=== PATIENT | male | born 1965 | race Caucasian/White ===

== ENCOUNTER 2016-05-23 21:15 | Emergency (ER) | payer MEDICARE, OTHER ==
[2016-05-23] MEDS ORDERED: Sodium Chloride 0.9% 1000 ML 1,000 ML IV STA (21:39)
[2016-05-23] MEDS ORDERED: Phenergan 25 MG INJ IV ONE (21:39)
[2016-05-23] MEDS ORDERED: PROTONIX 40 MG IV IV ONE ×2 (21:39→21:46)
[2016-05-23] MEDS ORDERED: Hydromorphone 1 mg/ml Ampule IV ONE ×2 (21:39→23:26)
[2016-05-23] MEDS ORDERED: Hydromorphone 1 mg/ml Ampule ONE ×2 (21:46→23:40)
[2016-05-23] MEDS ORDERED: Phenergan 25 MG INJ ONE (21:46)
[2016-05-23] MEDS ORDERED: Sodium Chloride 0.9% 1000 ML 1,000 ML ONE (21:46)
--- NOTE | 2016-05-23 21:51 | ERPHSYRPT ---
- History of Present Illness Time Seen by Provider: 05/23/16 21:28 Historian: patient Exam Limitations: no limitations Patient Subjective Stated Complaint: pt states he been coughing frequently and is having pain in his abd from coughing and chronic pancreatitis. Triage Nursing Assessment: pt alert and oriented, answers questions approp. skin pale warm and dry. respirations nonlabored with exp wheeze noted. abd soft , tender. Physician History: SINCE 8 AM TODAY PT HAS HAD CONSTANT SHARP MID UPPER ABDOMINAL PAIN RADIATING TO THE BACK, VOMITING X 20 WITHOUT BLOOD, DIARRHEA X10 AND CONSTANT SHARP NON- RADIATING LOWER MID ANTERIOR CHEST PAIN WITH DIAPHORESIS. PT ALSO C/O A COUGH PRODUCTIVE OF WHITE PHLEGM AND A BILATERAL FOOT RASH FOR THE PAST 3 WEEKS. PT STATES FOR THE PAST 2 YEARS HE CONSUMES 1.5 FIFTHS OF VODKA DAILY. PT'S FIRST EPISODE OF PANCREATITIS WAS 2 YEARS AGO AND LAST EPISODE WAS 4.5 MONTHS AGO. Allergies/Adverse Reactions: No Known Drug Allergies Allergy (Verified 05/23/16 21:43) Home Medications: Aspirin EC 325 mg [Ecotrin 325 MG] 325 mg PO DAILY 05/23/16 [History] Metoprolol Tartrate 50 mg PO BID 05/23/16 [History] Nifedipine [Afeditab Cr] 60 mg PO DAILY 05/23/16 [History] PANTOPRAZOLE 40 mg Tablet [Protonix 40MG Tablet] 40 mg PO DAILY 05/23/16 [ History] Hx Tetanus, Diphtheria Vaccination/Date Given: No (UNKNOWN) Hx Influenza Vaccination/Date Given: Yes (2015) Hx Pneumococcal Vaccination/Date Given: Yes (2016) Immunizations Up to Date: No - Review of Systems Respiratory: Cough Cardiac: Chest Pain Abdominal/Gastrointestinal: Abdominal Pain, Vomiting, Diarrhea Skin: Rash Endocrine: Excessive Sweating All Other Systems: Reviewed and Negative - Past Medical History Pertinent Past Medical History: Yes Neurological History: TIA ENT History: No Pertinent History Cardiac History: Coronary Artery Disease, Hypertension Respiratory History: COPD Endocrine Medical History: No Pertinent History Musculoskeletal History: Degenerative Disk Disease, Osteoarthritis, Other GI Medical History: Hepatitis, Pancreatitis History: No Pertinent History Psycho-Social History: No Pertinent History Male Reproductive Disorders: No Pertinent History Other Medical History: CARDIAC BLOCKAGE, Hepatitis C, alcoholism - Past Surgical History Past Surgical History: Yes Neuro Surgical History: No Pertinent History Cardiac: No Pertinent History Respiratory: No Pertinent History Gastrointestinal: No Pertinent History Genitourinary: No Pertinent History Musculoskeletal: Orthopedic Surgery Male Surgical History: No Pertinent History Other Surgical History: NECK SURG IN MAR 2013, Lower back surgery x 2 in 1991, sinus surgery - Social History Smoking Status: Current every day smoker How long have you smoked: 30 Exposure to second hand smoke: Yes Drug Use: none Patient Lives Alone: No - Nursing Vital Signs Nursing Vital Signs: Initial Vital Signs Temperature 97.5 F Temperature Source Oral Pulse Rate 102 Respiratory Rate 18 Blood Pressure [] 111/81 Pain Intensity 6 - Physical Exam General Appearance: alert Eye Exam: PERRL/EOMI Ears, Nose, Throat Exam: dry mucous membranes, pharyngeal erythema Neck Exam: normal inspection Respiratory Exam: wheezing (MILD EXPIRATORY WHEEZING BILATERALLY) Cardiovascular Exam: tachycardia Gastrointestinal/Abdomen Exam: soft, normal bowel sounds, tenderness (MILD EPIGASTRIC TENDERNESS) Back Exam: normal range of motion Extremity Exam: other (DRY SCALY FLESHY COLORED RASY ON BOTH HEELS) Neurologic Exam: alert, cooperative, normal mood/affect SpO2 Interpretation: normal SpO2: 93 Oxygen Delivery: Room Air - Course Nursing assessment & vital signs reviewed: Yes EKG Interpreted by Me: RATE ([id number]), Sinus Tach, NORMAL AXIS, NORMAL INTERVALS - Radiology Exams Chest X-ray Interpretation: Interpreted by me, No Pneumonia Ordered Tests: Active Orders 24 hr Category Date Time Status Clean Catch Urine Specimen STAT Care 05/23/16 21:39 Active EKG-ER Only STAT Care 05/23/16 21:39 Active EKG-ER Only STAT Care 05/23/16 23:16 Active IV Insertion STAT Care 05/23/16 21:39 Active ABDOMEN AND PELVIS W/0 CONTRAS [CT] Stat Exams 05/23/16 21:40 Taken CHEST 1 VIEW (PORTABLE) Stat Exams 05/23/16 21:40 Taken AMYLASE Stat Lab 05/23/16 22:15 Completed BLOOD CULTURE Stat Lab 05/23/16 22:00 Ordered CBC W DIFF Stat Lab 05/23/16 22:15 Completed CMP Stat Lab 05/23/16 22:15 Completed CULTURE, THROAT Stat Lab 05/23/16 22:15 Received CULTURE,SPUTUM Stat Lab 05/23/16 23:37 Uncollected ETHOH [Ethyl Alcohol,Urine] Stat Lab 05/23/16 23:36 Received LIPASE Stat Lab 05/23/16 22:15 Completed MAG [MAGNESIUM] Stat Lab 05/23/16 22:15 Completed Manual Differential NC Stat Lab 05/23/16 22:15 Completed Graves Screen Stat Lab 05/23/16 22:15 Completed STREP SCREEN-BETA A Stat Lab 05/23/16 22:15 Completed TROPONIN Stat Lab 05/23/16 22:15 Completed UA Stat Lab 05/23/16 23:36 Received Urine Triage Profile Stat Lab 05/23/16 23:36 Received Respiratory Nebulizer STAT RT 05/23/16 21:55 Completed Medication Summary Generic Name Dose Route Start Last Admin Trade Name Freq PRN Reason Stop Dose Admin Potassium Chloride/Sodium Chloride 1,000 mls @ 500 mls/hr 05/23/16 23:15 23:13 Sodium Chloride 0.9% W/ 20 Meq Kcl/Liter IV 06/22/16 23:14 500 mls/hr .Q2H BRIDGET Administration Azithromycin 250 mls @ 125 mls/hr 05/23/16 23:37 05/23/16 23:42 Zithromax 500 Mg/ 250 Ml Nacl Premix IV 05/24/16 01:36 125 mls/hr STAT ONE Administration Ceftriaxone Sodium/Dextrose 50 mls @ 100 mls/hr 05/23/16 23:37 05/23/16 23:41 Rocephin 1 Gm-D5w 50 Ml Bag IV 05/24/16 00:06 100 mls/hr STAT ONE Administration Discontinued Medications Generic Name Dose Route Start Last Admin Trade Name [place] PRN Reason Stop Dose Admin Albuterol Sulfate 2.5 mg 05/23/16 21:55 05/23/16 22:21 Proventil 2.5 Mg/3 Ml Neb IH 05/23/16 21:56 2.5 mg STAT ONE Administration Albuterol Sulfate Confirm 05/23/16 22:20 Proventil 2.5 Mg/3 Ml Neb Administered 05/23/16 22:21 Dose 2.5 mg IH .STK-MED ONE Albuterol/Ipratropium Confirm 05/23/16 22:18 Duoneb 0.5-3 Mg/3 Ml Neb Administered 05/23/16 22:19 Dose 3 ml IH .STK-MED ONE Hydromorphone HCl 1 mg 05/23/16 21:39 05/23/16 21:52 Hydromorphone 1 Mg/Ml Ampule IV 05/23/16 21:40 1 mg STAT ONE Administration Hydromorphone HCl Confirm 05/23/16 21:46 Hydromorphone 1 Mg/Ml Ampule Administered 05/23/16 21:47 Dose 1 mg .ROUTE .STK-MED ONE Hydromorphone HCl 1 mg 05/23/16 23:26 05/23/16 23:42 Hydromorphone 1 Mg/Ml Ampule IV 05/23/16 23:27 1 mg STAT ONE Administration Hydromorphone HCl Confirm 05/23/16 23:40 Hydromorphone 1 Mg/Ml Ampule Administered 05/23/16 23:41 Dose 1 mg .ROUTE .STK-MED ONE Sodium Chloride 1,000 mls @ 999 mls/hr 05/23/16 21:39 05/23/16 21:53 Sodium Chloride 0.9% 1000 Ml IV 05/23/16 22:39 999 mls/hr .Q1H1M STA Administration Sodium Chloride Confirm 05/23/16 21:46 Sodium Chloride 0.9% 1000 Ml Administered 05/23/16 21:47 Dose 1,000 mls @ ud .ROUTE .STK-MED ONE Potassium Chloride/Sodium Chloride Confirm 05/23/16 23:12 Sodium Chloride 0.9% W/ 20 Meq Kcl/Liter Administered 05/23/16 23:13 Dose 1,000 mls @ ud IV .STK-MED ONE Azithromycin Confirm 05/23/16 23:40 Zithromax 500 Mg/ 250 Ml Nacl Premix Administered 05/23/16 23:41 Dose 250 mls @ ud IV .STK-MED ONE Ceftriaxone Sodium/Dextrose Confirm 05/23/16 23:40 Rocephin 1 Gm-D5w 50 Ml Bag Administered 05/23/16 23:41 Dose 50 mls @ ud IV .STK-MED ONE Pantoprazole Sodium 40 mg 05/23/16 21:39 05/23/16 21:53 Protonix 40 Mg Iv IV 05/23/16 21:40 40 mg STAT ONE Administration Pantoprazole Sodium Confirm 05/23/16 21:46 Protonix 40 Mg Iv Administered 05/23/16 21:47 Dose 40 mg IV .STK-MED ONE Promethazine HCl 12.5 mg 05/23/16 21:39 05/23/16 21:53 Phenergan 25 Mg Inj IV 05/23/16 21:40 12.5 mg STAT ONE Administration Promethazine HCl Confirm 05/23/16 21:46 Phenergan 25 Mg Inj Administered 05/23/16 21:47 Dose 25 mg .ROUTE .STK-MED ONE Lab/Rad Data: Laboratory Result Diagrams 05/23/16 22:15 05/23/16 22:15 Laboratory Results 05/23/16 05/23/16 05/23/16 Range/Units 22:15 22:15 22:15 WBC (4.0-10.5) K/mm3 RBC (4.1-5.6) M/mm3 Hgb (12.5-18.0) gm/dl Hct (42-50) % MCV (78-100) fl MCH (26-32) pg MCHC (32-36) g/dl RDW (11.5-14.0) % Plt Count (150-450) K/mm3 MPV (6-9.5) fl Segmented Neutrophils (36.-66.) % Band Neutrophils (0.0-2.0) % Lymphocytes (Manual) (24-44) % Monocytes (Manual) (0.0-12.0) % Nucleated RBCs % Differential Comment Atypical Lymphocytes % Toxic Granulation Dohle Bodies Platelet Estimate (NORMAL) Hypochromasia Basophilic Stippling Sodium (136-145) mEq/L Potassium (3.5-5.1) mEq/L Chloride (98-107) mEq/L Carbon Dioxide (21-32) mEq/L Anion Gap (5-15) MEQ/L BUN (9-20) mg/dL Creatinine (0.55-1.30) mg/dl Estimated GFR ML/MIN Glucose (70-110) MG/DL Calcium (8.5-10.1) mg/dL Magnesium (1.8-2.4) mg/dL Total Bilirubin (0.2-1.0) mg/dL AST (15-37) U/L ALT (12-78) U/L Alkaline Phosphatase (46-116) U/L Troponin I (0.000-0.056) ng/ml Serum Total Protein (6.4-8.2) gm/dL Albumin (3.4-5.0) g/dL Amylase (25-115) U/L Lipase (73-393) U/L Monoscreen NEGATIVE (Negative) Influenza Type A Ag NEGATIVE (NEGATIVE) Influenza Type B Ag NEGATIVE (NEGATIVE) RSV (PCR) NEGATIVE (Negative) Streptococcus Screen NEGATIVE (Negative) 05/23/16 05/23/16 05/23/16 Range/Units 22:15 22:15 22:15 WBC 3.8 L (4.0-10.5) K/mm3 RBC 3.75 L (4.1-5.6) M/mm3 Hgb 13.1 (12.5-18.0) gm/dl Hct 37.5 L (42-50) % MCV 100.0 (78-100) fl MCH 34.9 H (26-32) pg MCHC 34.9 (32-36) g/dl RDW 14.2 H (11.5-14.0) % Plt Count 31 L (150-450) K/mm3 MPV 12.3 H (6-9.5) fl Segmented Neutrophils 79 H (36.-66.) % Band Neutrophils 7 H (0.0-2.0) % Lymphocytes (Manual) 8 L (24-44) % Monocytes (Manual) 5 (0.0-12.0) % Nucleated RBCs 1 % Differential Comment ABNORMAL Atypical Lymphocytes 1 % Toxic Granulation 2+ Dohle Bodies 1+ Platelet Estimate DECREASED (NORMAL) Hypochromasia 1+ Basophilic Stippling 1+ Sodium 138 (136-145) mEq/L Potassium 2.2 L* (3.5-5.1) mEq/L Chloride 95 L (98-107) mEq/L Carbon Dioxide 32.1 H (21-32) mEq/L Anion Gap 14.4 (5-15) MEQ/L BUN 24 H (9-20) mg/dL Creatinine 1.04 (0.55-1.30) mg/dl Estimated GFR > 60 ML/MIN Glucose 217 H (70-110) MG/DL Calcium 8.6 (8.5-10.1) mg/dL Magnesium 1.8 (1.8-2.4) mg/dL Total Bilirubin 2.1 H (0.2-1.0) mg/dL AST 162 H (15-37) U/L ALT 16 (12-78) U/L Alkaline Phosphatase 168 H (46-116) U/L Troponin I 0.155 H* (0.000-0.056) ng/ml Serum Total Protein 6.8 (6.4-8.2) gm/dL Albumin 2.2 L (3.4-5.0) g/dL Amylase 152 H (25-115) U/L Lipase 2660 H (73-393) U/L Monoscreen (Negative) Influenza Type A Ag (NEGATIVE) Influenza Type B Ag (NEGATIVE) RSV (PCR) (Negative) Streptococcus Screen (Negative) - Progress Discussed with : Other (SPOKE WITH ROJAS YE[facility](N.P. FOR DR NAVARRO)([id number]) WHO ACCEPTED PT FOR TRANSFER TO [facility] A DIRECT ADMISSION.) - Departure Time of Disposition: 23:50 Departure Disposition: Transfer ([facility]) Clinical Impression: ACUTE PANCREATITIS, SEVERE HYPOKALEMIA, CHEST PAIN, ELEVATED TROPONIN, THROMBOCYTOPENIA, CAD, HTN, COPD, RLL AND RML PNEUMONIA, ARTHRITIS, HEPATITIS, ALCOHOLISM Condition: Stable Critical Care Time: Yes Critical Care Time(excluding separately billable procedures): 30-74 minutes Referrals: AMBREEN PADILLA [Primary Care Provider] -
[2016-05-23] MEDS ORDERED: PROVENTIL 2.5 MG/3 ML NEB IH ONE ×2 (21:55→22:20)
[2016-05-23] MEDS ORDERED: DUONEB 0.5-3 MG/3 ml Neb IH ONE (22:18)
[2016-05-23 22:19] LABS: Mean Corpuscular Hemoglobin 34.9 pg (26-32); Mean Platelet Volume 12.3 fl (6-9.5); Platelet Count 31 K/mm3 (150-450); Red Blood Count 3.75 M/mm3 (4.1-5.6); Red Cell Distribution Width 14.2 % (11.5-14.0); White Blood Count 3.8 K/mm3 (4.0-10.5)
[2016-05-23 23:00] LABS: ALBUMIN 2.2 g/dL (3.4-5.0); ALKALINE PHOSPHATASE 168 U/L (46-116); ANION GAP 14.4 MEQ/L (5-15); BILIRUBIN,TOTAL 2.1 mg/dL (0.2-1.0); BLOOD UREA NITROGEN 24 mg/dL (9-20); CHLORIDE 95 mEq/L (98-107); Carbon Dioxide 32.1 mEq/L (21-32); Glucose 217 MG/DL (70-110); SGOT/AST 162 U/L (15-37); SGPT/ALT 16 U/L (12-78); SODIUM 138 mEq/L (136-145); Total Protein 6.8 gm/dL (6.4-8.2)
[2016-05-23 23:02] LABS: Potassium 2.2 mEq/L (3.5-5.1); TROPONIN 0.155 ng/ml (0.000-0.056)
[2016-05-23 23:11] LABS: LIPASE 2660 U/L (73-393)
[2016-05-23] MEDS ORDERED: Sodium Chloride 0.9% W/ 20 mEq KCl/LITER 1,000 ML IV ONE (23:12)
[2016-05-23] MEDS ORDERED: Sodium Chloride 0.9% W/ 20 mEq KCl/LITER 1,000 ML IV SCH (23:15)
[2016-05-23] MEDS ORDERED: ROCEPHIN 1 Gm-D5w 50 ml Bag** 50 ML IV ONE ×2 (23:37→23:40)
[2016-05-23] MEDS ORDERED: Zithromax 500 MG/ 250 ML NaCl Premix 250 ML IV ONE ×2 (23:37→23:40)
[2016-05-23 23:45] LABS: ATYPICAL LYMPHS 1 %; BAND 7 % (0.0-2.0); Nucleated Red Blood Cell 1 %; Platelet Estimate DECREASED (NORMAL); Total Cells Counted 100
[2016-05-23 23:46] LABS: Basophilic Stippling 1+; Dohle Bodies 1+; Hypochromia 1+; Toxic Granulation 2+
[2016-05-24 00:13] LABS: Collection Type VOID; Ph 6.5 (5-6)
[2016-05-24 00:14] LABS: Bacteria FEW /HPF (NEGATIVE); COMPLETE URINE MICROSCOPIC? YES; Epithelial Cells FEW /HPF (FEW); Hyaline Casts 0-2 /LPF (0-2); Mucus SLIGHT /HPF (NEGATIVE); WBC 0-2 /HPF (0-5)
[2016-05-24 00:54] VITALS: BP 102/74; PULSE 111; O2SAT 96
--- NOTE | 2016-05-24 09:12 | XRAY ---
Indication: Abdominal pain and nausea. History of pancreatitis. Multiple contiguous axial images obtained through the abdomen and pelvis without contrast as ordered. Comparison: January 12, 2016. Lung bases demonstrates bibasilar fibrosis/scarring with new alveolar opacities in the visualized right middle and right lower lobes. Smaller focus versus dependent atelectasis in the left posterior gutter. No large effusion. Heart is not enlarged. Pancreatic body and tail is now prominent with moderate peripancreatic stranding favoring pancreatitis. Tiny fluid along the right colic gutter. No walled off fluid collection or free air. Stable fatty hepatomegaly and calcified splenic granulomas. Remaining gallbladder, adrenal glands, kidneys, ureters, and bladder appear unremarkable for noncontrast exam. Stable 2.5 cm ovoid hypodensity in the right inguinal canal, possible undescended testicle. Osseous structures intact again with mild/moderate degenerative changes throughout the spine again greatest at the lumbosacral junction. Impression: 1. CT features as detailed favoring acute pancreatitis with tiny right colic free fluid. 2. New right middle and right lower lobe alveolar opacities favoring pneumonia. Smaller focus versus dependent atelectasis in the left posterior gutter. 3. Stable fatty hepatomegaly and possible undescended right testicle. Comment: Preliminary interpretation was made by C. No discrepancy. CT DI 19.34
--- NOTE | 2016-05-24 09:14 | XRAY ---
Indication: Cough, congestion, chest pressure. Comparison: January 12, 2016. Portable chest demonstrates new diffuse right lung airspace disease greatest in the inferior right upper lobe. No consolidation or large effusion. Left lung clear. Heart is not enlarged. Bony thorax intact again with mild degenerative changes. Impression: New right lung airspace disease.
== END 2016-05-24 01:14 | disposition short-term general hospital (02) ==
LOC: ED 21:15
DX: K85.90 Acute pancreatitis without necrosis or infection, unspecified (principal); E87.6 Hypokalemia; R07.89 Other chest pain; R79.89 Other specified abnormal findings of blood chemistry; D69.6 Thrombocytopenia, unspecified; I25.10 Atherosclerotic heart disease of native coronary artery without angina pectoris; I10 Essential (primary) hypertension; J44.9 Chronic obstructive pulmonary disease, unspecified; J18.9 Pneumonia, unspecified organism; M19.90 Unspecified osteoarthritis, unspecified site; K75.9 Inflammatory liver disease, unspecified; F10.20 Alcohol dependence, uncomplicated; R10.10 Upper abdominal pain, unspecified; R11.10 Vomiting, unspecified; R19.7 Diarrhea, unspecified; R61 Generalized hyperhidrosis
CPT/HCPCS: 96374; 96365; 96366; 99285; 36000; 96360; 96375; 96376; 96367; 93005 ×2; 87040; 82150; 81000; 86308; 36415; 87430; 83690; 83735; 87070; 80307; 80320; 83986; 85025; 80053; 84484; 87631; 71010; 74176; 94640; A9270; 81002; J0456; J0696; J1170; J2550

== ENCOUNTER 2016-06-04 18:48 | Emergency (ER) | payer MEDICARE, OTHER ==
[2016-06-04] MEDS ORDERED: BABY ASPIRIN 81 MG CHEW PO ONE (19:16)
[2016-06-04] MEDS ORDERED: Nitrostat 0.4 MG (ED) SL ONE ×4 (19:16→21:00)
--- NOTE | 2016-06-04 19:21 | ERPHSYRPT ---
- History of Present Illness Time Seen by Provider: 06/04/16 19:16 Historian: patient, family Exam Limitations: no limitations Patient Subjective Stated Complaint: cp for 2 hrs Triage Nursing Assessment: lt nonradiating cp for past 2 hrs. double pnemonia last week--hospitalized at [facility]. skin warm and dry. denies n/v/sob. non productive cough with nasal drainage. no fever. Physician History: Patient is a 50-year-old male with family complaining of a sudden onset of left- sided chest pain 2 hours ago while at rest. The chest pain was a dull aching feeling that now has some sharp spikes to it. He was short of breath and sweaty. He denies nausea. He denies any radiation of the chest pain. He was recently at [facility] for "double pneumonia". He also was recently treated for pancreatitis. His past medical history is significant for hypertension, pancreatitis, coronary artery disease, COPD, and alcoholism. He has not had a drink of alcohol in about 2 weeks. He continues to smoke. His family history is significant for brothers with heart problems and MIs at early age. Timing/Duration: hour(s) (2) Activities at Onset: rest Quality: aching, sharpness Location: substernal Chest Pain Radiation: no radiation Severity of Pain-Max: moderate Severity of Pain-Current: moderate Modifying Factors: Improves With: nothing Associated Symptoms: shortness of breath, diaphoresis, No hurts to breathe Prior Chest Pain/Cardiac Workup: cardiac cath Nitro Today/Relief: no nitro taken today Aspirin Treatment Today: no aspirin today Allergies/Adverse Reactions: No Known Drug Allergies Allergy (Verified 06/04/16 18:55) Home Medications: Albuterol 8 gm Mdi Hfa [Ventolin Hfa MDI] 8 gm IH Q4HWA 06/04/16 [History] Aspirin 81 mg PO DAILY 06/04/16 [History] Magnesium Salicylate/Caffeine [Diurex Water Pills] 1 each PO QID 06/04/16 [ History] Metoprolol Tartrate 50 mg [Lopressor 50 MG] 50 mg PO DAILY 06/04/16 [ History] PANTOPRAZOLE 40 mg Tablet [Protonix 40MG Tablet] 40 mg PO DAILY 06/04/16 [ History] Thiamine HCl [Vitamin B-1] 250 mg PO DAILY 06/04/16 [History] Hx Tetanus, Diphtheria Vaccination/Date Given: Yes Hx Influenza Vaccination/Date Given: Yes Hx Pneumococcal Vaccination/Date Given: Yes Immunizations Up to Date: Yes - Review of Systems Constitutional: No Fever, No Chills Eyes: No Symptoms Ears, Nose, & Throat: No Symptoms Respiratory: Dyspnea Cardiac: Chest Pain Abdominal/Gastrointestinal: No Abdominal Pain, No Nausea, No Vomiting, No Diarrhea Genitourinary Symptoms: No Dysuria Musculoskeletal: No Back Pain, No Neck Pain Skin: No Rash Neurological: No Symptoms Psychological: No Symptoms Endocrine: No Symptoms Hematologic/Lymphatic: No Symptoms Immunological/Allergic: No Symptoms All Other Systems: Reviewed and Negative - Past Medical History Pertinent Past Medical History: Yes Neurological History: TIA ENT History: No Pertinent History Cardiac History: Coronary Artery Disease, Hypertension Respiratory History: COPD Endocrine Medical History: No Pertinent History Musculoskeletal History: Degenerative Disk Disease, Osteoarthritis, Other GI Medical History: Hepatitis, Pancreatitis History: No Pertinent History Psycho-Social History: No Pertinent History Male Reproductive Disorders: No Pertinent History Other Medical History: CARDIAC BLOCKAGE, Hepatitis C, alcoholism - Past Surgical History Past Surgical History: Yes Neuro Surgical History: No Pertinent History Cardiac: No Pertinent History Respiratory: No Pertinent History Gastrointestinal: No Pertinent History Genitourinary: No Pertinent History Musculoskeletal: Orthopedic Surgery Male Surgical History: No Pertinent History Other Surgical History: NECK SURG IN MAR 2013, Lower back surgery x 2 in 1991, sinus surgery - Social History Smoking Status: Current every day smoker How long have you smoked: 30 Exposure to second hand smoke: Yes Drug Use: none Patient Lives Alone: No - Nursing Vital Signs Temperature: 97.4 F Temperature Source: Oral Pulse Rate: 112 Respiratory Rate: 24 Pain Intensity: 7 - Physical Exam General Appearance: mild distress Eye Exam: PERRL/EOMI, eyes nml inspection Ears, Nose, Throat Exam: normal ENT inspection, moist mucous membranes Neck Exam: normal inspection, non-tender, supple, full range of motion Respiratory Exam: normal breath sounds, lungs clear, No chest tenderness, No respiratory distress Cardiovascular Exam: regular rate/rhythm, normal heart sounds Gastrointestinal/Abdomen Exam: soft, No tenderness, No mass Rectal Exam: not done Back Exam: normal inspection, No CVA tenderness, No vertebral tenderness Extremity Exam: normal inspection, normal range of motion Neurologic Exam: alert, oriented x 3, cooperative, normal mood/affect, sensation nml, No motor deficits Skin Exam: normal color, warm, dry SpO2 Interpretation: normal SpO2: 98 Oxygen Delivery: Room Air - Course EKG Interpreted by Me: Sinus Tach, NORMAL AXIS, NORMAL INTERVALS, NORMAL ST-T, Other (No change compared to EKG 05/24/16) - Radiology Exams Chest X-ray Interpretation: Interpreted by me, Infiltrates (seen on lateral view.), Other (increased pulmonary vascularity, no effusions.) Ordered Tests: Active Orders 24 hr Category Date Time Status Site Inspector STAT Care 06/04/16 19:16 Active EKG-ER Only STAT Care 06/04/16 19:16 Active IV Insertion STAT Care 06/04/16 19:16 Active Oxygen-ED Only NASAL CANNULA 2 lpm Care 06/04/16 19:16 Active CHEST 2 VIEWS (PA AND LAT) Stat Exams 06/04/16 19:17 Taken BLOOD CULTURE Stat Lab 06/04/16 19:35 Received CBC W DIFF Stat Lab 06/04/16 19:30 Completed CMP Stat Lab 06/04/16 19:30 Completed D-DIMER QUANTITATION Stat Lab 06/04/16 19:30 Completed NT PRO BNP Stat Lab 06/04/16 19:30 Completed TROPONIN Q3H Lab 06/04/16 19:30 Completed TROPONIN Q3H Lab 06/04/16 22:30 Ordered TROPONIN Q3H Lab 06/05/16 01:30 Ordered TROPONIN Q3H Lab 06/05/16 04:30 Ordered TROPONIN Q3H Lab 06/05/16 07:30 Ordered Medication Summary Discontinued Medications Generic Name Dose Route Start Last Admin Trade Name Freq PRN Reason Stop Dose Admin Aspirin 324 mg 06/04/16 19:16 06/04/16 19:23 Baby Aspirin 81 Mg Chew PO 06/04/16 19:17 324 mg STAT ONE Administration Furosemide 40 mg 06/04/16 20:27 06/04/16 20:37 Lasix 40 Mg/4 Ml IV 06/04/16 20:28 40 mg STAT ONE Administration Furosemide Confirm 06/04/16 20:32 Lasix 40 Mg/4 Ml Administered 06/04/16 20:33 Dose 40 mg .ROUTE .STK-MED ONE Ceftriaxone Sodium/Dextrose 50 mls @ 100 mls/hr 06/04/16 20:28 06/04/16 20:38 Rocephin 1 Gm-D5w 50 Ml Bag IV 06/04/16 20:57 100 mls/hr STAT ONE Administration Ceftriaxone Sodium/Dextrose Confirm 06/04/16 20:32 Rocephin 1 Gm-D5w 50 Ml Bag Administered 06/04/16 20:33 Dose 50 mls @ ud IV .STK-MED ONE Nitroglycerin 0.4 mg 06/04/16 19:16 06/04/16 19:46 Nitrostat 0.4 Mg (Ed) SL 06/04/16 19:17 0.4 mg STAT ONE Administration Nitroglycerin Confirm 06/04/16 19:44 Nitrostat 0.4 Mg (Ed) Administered 06/04/16 19:45 Dose 0.4 mg SL .STK-MED ONE Nitroglycerin 0.4 mg 06/04/16 20:08 06/04/16 20:10 Nitrostat 0.4 Mg (Ed) SL 06/04/16 20:09 0.4 mg STAT ONE Administration Nitroglycerin 0.4 mg 06/04/16 21:00 06/04/16 21:01 Nitrostat 0.4 Mg (Ed) SL 06/04/16 21:01 0.4 mg STAT ONE Administration Lab/Rad Data: Laboratory Result Diagrams 06/04/16 19:30 06/04/16 19:30 Laboratory Results 06/04/16 06/04/16 06/04/16 Range/Units 19:30 19:30 19:30 WBC (4.0-10.5) K/mm3 RBC (4.1-5.6) M/mm3 Hgb (12.5-18.0) gm/dl Hct (42-50) % MCV (78-100) fl MCH (26-32) pg MCHC (32-36) g/dl RDW (11.5-14.0) % Plt Count (150-450) K/mm3 MPV (6-9.5) fl Gran % (36.0-66.0) % Lymphocytes % (24.0-44.0) % Monocytes % (0.0-12.0) % Eosinophils % (0.00-5.0) % Basophils % (0.0-0.4) % Basophils # (0-0.4) D-Dimer 0.432 (0.00-0.49) mg/L Sodium 140 (136-145) mEq/L Potassium 3.6 (3.5-5.1) mEq/L Chloride 102 (98-107) mEq/L Carbon Dioxide 25.9 (21-32) mEq/L Anion Gap 15.6 H (5-15) MEQ/L BUN 11 (9-20) mg/dL Creatinine 0.98 (0.55-1.30) mg/dl Estimated GFR > 60 ML/MIN Glucose 131 H (70-110) MG/DL Calcium 7.8 L (8.5-10.1) mg/dL Total Bilirubin 1.1 H (0.2-1.0) mg/dL AST 36 (15-37) U/L ALT 39 (12-78) U/L Alkaline Phosphatase 175 H (46-116) U/L Troponin I < 0.017 (0.000-0.056) ng/ml NT-Pro-B Natriuret Pep 9872 H (0-125) pg/ml Serum Total Protein 6.8 (6.4-8.2) gm/dL Albumin 2.3 L (3.4-5.0) g/dL 06/04/16 Range/Units 19:30 WBC 9.7 (4.0-10.5) K/mm3 RBC 3.00 L (4.1-5.6) M/mm3 Hgb 10.6 L (12.5-18.0) gm/dl Hct 32.5 L (42-50) % MCV 108.3 H (78-100) fl MCH 35.3 H (26-32) pg MCHC 32.6 (32-36) g/dl RDW 13.5 (11.5-14.0) % Plt Count 411 (150-450) K/mm3 MPV 12.0 H (6-9.5) fl Gran % 78.5 H (36.0-66.0) % Lymphocytes % 10.4 L (24.0-44.0) % Monocytes % 9.9 (0.0-12.0) % Eosinophils % 0.7 (0.00-5.0) % Basophils % 0.5 (0.0-0.4) % Basophils # 0.05 (0-0.4) D-Dimer (0.00-0.49) mg/L Sodium (136-145) mEq/L Potassium (3.5-5.1) mEq/L Chloride (98-107) mEq/L Carbon Dioxide (21-32) mEq/L Anion Gap (5-15) MEQ/L BUN (9-20) mg/dL Creatinine (0.55-1.30) mg/dl Estimated GFR ML/MIN Glucose (70-110) MG/DL Calcium (8.5-10.1) mg/dL Total Bilirubin (0.2-1.0) mg/dL AST (15-37) U/L ALT (12-78) U/L Alkaline Phosphatase (46-116) U/L Troponin I (0.000-0.056) ng/ml NT-Pro-B Natriuret Pep (0-125) pg/ml Serum Total Protein (6.4-8.2) gm/dL Albumin (3.4-5.0) g/dL - Progress Progress: improved Air Movement: good Progress Note: 06/04/16 21:27 Initially the patient was given nitroglycerin 0.4 mg sublingual without complete relief of chest pain. Chest x-ray was significant for increased pulmonary vascularity so the patient was given Lasix 40 mg IV. After diuresis the patient states he feels much better and is completely pain-free. He is wishing to go home and follow-up with his doctor tomorrow. The chest x-ray also showed an infiltrate on the lateral view. The patient was given Rocephin 1 g IV. Blood Culture(s) Obtained: Yes Antibiotics given: Yes Counseled pt/family regarding: lab results, diagnosis, need for follow-up, rad results - Departure Time of Disposition: 21:28 Departure Disposition: Home Clinical Impression: CHF (congestive heart failure), Pulmonary infiltrate Condition: Stable Critical Care Time: No Instructions: Heart Failure Additional Instructions: you have an excess buildup of fluid in your body that was relieved with Lasix 40 mg IV. Your chest pain is now gone. The chest x-ray showed an infiltrate and uvula given an antibiotic called Rocephin in the ER. You are to continue with the Z-Greg tomorrow. Follow-up with your doctor tomorrow. Prescriptions: Azithromycin [Azithromycin 250 mg Pack] 250 mg PO UD #6 tablet
[2016-06-04 19:46] LABS: BASOPHIL % 0.5 % (0.0-0.4); Eosinophil % 0.7 % (0.00-5.0); Granulocytes % 78.5 % (36.0-66.0); Lymphocytes % 10.4 % (24.0-44.0); Mean Cell Volume 108.3 fl (78-100); Mean Corpuscular Hemoglobin 35.3 pg (26-32); Monocytes % 9.9 % (0.0-12.0); Platelet Count 411 K/mm3 (150-450); Red Cell Distribution Width 13.5 % (11.5-14.0); White Blood Count 9.7 K/mm3 (4.0-10.5)
[2016-06-04 20:01] LABS: ALBUMIN 2.3 g/dL (3.4-5.0); ALKALINE PHOSPHATASE 175 U/L (46-116); ANION GAP 15.6 MEQ/L (5-15); BILIRUBIN,TOTAL 1.1 mg/dL (0.2-1.0); BLOOD UREA NITROGEN 11 mg/dL (9-20); CHLORIDE 102 mEq/L (98-107); Carbon Dioxide 25.9 mEq/L (21-32); Glucose 131 MG/DL (70-110); Potassium 3.6 mEq/L (3.5-5.1); SGOT/AST 36 U/L (15-37); SGPT/ALT 39 U/L (12-78); SODIUM 140 mEq/L (136-145); Total Protein 6.8 gm/dL (6.4-8.2)
[2016-06-04] MEDS ORDERED: Lasix 40 MG/4 ML IV ONE (20:27)
[2016-06-04] MEDS ORDERED: ROCEPHIN 1 Gm-D5w 50 ml Bag** 50 ML IV ONE ×2 (20:28→20:32)
[2016-06-04] MEDS ORDERED: Lasix 40 MG/4 ML ONE (20:32)
[2016-06-04 21:00] VITALS: BP 121/87
[2016-06-04 21:32] VITALS: PULSE 112; O2SAT 98
[2016-06-05] MEDS ORDERED: BABY ASPIRIN 81 MG CHEW ONE (03:48)
[2016-06-05] MEDS ORDERED: Nitrostat 0.4 MG (ED) SL ONE (03:48)
--- NOTE | 2016-06-05 08:37 | XRAY ---
Indication: Lower chest pain. Comparison: May 23, 2016. PA/lateral chest hyperinflated today with interval right lung clearing. There remains a few calcified granulomas. No focal infiltrate, consolidation, or large effusion. Heart is not enlarged. Vascularity normal. Impression: Nonacute hyperinflated chest.
== END 2016-06-04 21:44 | disposition home or self-care (01) ==
LOC: ED 18:48
DX: I50.9 Heart failure, unspecified (principal); R91.8 Other nonspecific abnormal finding of lung field; R07.89 Other chest pain; I10 Essential (primary) hypertension; K86.1 Other chronic pancreatitis; I25.10 Atherosclerotic heart disease of native coronary artery without angina pectoris; J44.9 Chronic obstructive pulmonary disease, unspecified; F10.20 Alcohol dependence, uncomplicated; F17.200 Nicotine dependence, unspecified, uncomplicated; R06.02 Shortness of breath; R61 Generalized hyperhidrosis; Z79.899 Other long term (current) drug therapy; Z86.73 Personal history of transient ischemic attack (TIA), and cerebral infarction without residual deficits
CPT/HCPCS: 36000; 36415; 71020; 80053; 83880; 84484; 85025; 85379; 87040; 93005; 93041; 96365; 96374; 99284; J0696; J1940; A9270-GY

== ENCOUNTER 2016-11-05 10:27 | Emergency (ER) | payer MEDICARE, OTHER ==
[2016-11-05] MEDS ORDERED: FOLATE 1 MG PO ONE (10:55)
[2016-11-05] MEDS ORDERED: THIAMINE 200 MG/2 ML IV ONE (10:55)
[2016-11-05] MEDS ORDERED: VALIUM 10 MG/2 ML SYRINGE IV ONE ×4 (10:55→14:09)
[2016-11-05] MEDS ORDERED: THIAMINE 200 MG/2 ML ONE (11:03)
[2016-11-05] MEDS ORDERED: Sodium Chloride 0.9% 1000 ML 1,000 ML ONE ×3 (11:03→13:13)
[2016-11-05] MEDS ORDERED: VALIUM 10 MG/2 ML SYRINGE ONE ×3 (11:03→14:12)
--- NOTE | 2016-11-05 11:03 | ERPHSYRPT ---
- History of Present Illness Time Seen by Provider: 11/05/16 11:00 Source: patient Exam Limitations: no limitations Patient Subjective Stated Complaint: EMS STATES THEY WERE CALLED TO PT'S RESIDENCE FOR A SEIZURE. EMS STATES FAMILY ADVISED PT IS AN ALCOHOLIC AND DRINKS 2 PINTS A DAY. UPON ARIVAL TO ER PT STATES HE HAS NOT DRANK IN 24 HRS AND BELIEVES HE HAD A SEIZURE DUE TO ETOH WITHDRAW. Triage Nursing Assessment: PT PINK, WARM, MOIST TO TOUCH. PT ALERT AND ORIENTED X3. PT HAS TRAMORS AT THIS TIME. Physician History: 50-year-old male came to the emergency room with past medical history of excessive alcohol abuse, drinks approximately 2, pinks of alcohol per day, has not drank since last night. In plan for quitting and started having a seizure activity approximately 1 hour ago before he came to the emergency room. Patient did not have any seizure activity in the emergency room, while examining the patient and patient was alert, awake, oriented to time, place and person. But was complaining of tremors Timing/Duration: today Associated Symptoms: seizure, other (tremors) Allergies/Adverse Reactions: No Known Drug Allergies Allergy (Verified 11/05/16 10:39) Hx Tetanus, Diphtheria Vaccination/Date Given: Yes (UNKNOWN) Hx Influenza Vaccination/Date Given: No Hx Pneumococcal Vaccination/Date Given: No Immunizations Up to Date: Yes - Review of Systems Constitutional: No Fever, No Chills Eyes: No Symptoms Ears, Nose, & Throat: No Symptoms Respiratory: No Cough, No Dyspnea Cardiac: No Chest Pain, No Edema, No Syncope Abdominal/Gastrointestinal: No Abdominal Pain, No Nausea, No Vomiting, No Diarrhea Genitourinary Symptoms: No Dysuria Musculoskeletal: No Back Pain, No Neck Pain Skin: No Rash Neurological: Seizure, Other (tremor), No Dizziness, No Focal Weakness, No Sensory Changes Psychological: No Symptoms Endocrine: No Symptoms All Other Systems: Reviewed and Negative - Past Medical History Pertinent Past Medical History: Yes Neurological History: TIA ENT History: No Pertinent History Cardiac History: Coronary Artery Disease, Hypertension Respiratory History: COPD Endocrine Medical History: No Pertinent History Musculoskeletal History: Degenerative Disk Disease, Osteoarthritis, Other GI Medical History: Hepatitis, Pancreatitis History: No Pertinent History Psycho-Social History: No Pertinent History Male Reproductive Disorders: No Pertinent History Other Medical History: CARDIAC BLOCKAGE, Hepatitis C, alcoholism - Past Surgical History Past Surgical History: Yes Neuro Surgical History: No Pertinent History Cardiac: No Pertinent History Respiratory: No Pertinent History Gastrointestinal: No Pertinent History Genitourinary: No Pertinent History Musculoskeletal: Orthopedic Surgery Male Surgical History: No Pertinent History Other Surgical History: NECK SURG IN MAR 2013, Lower back surgery x 2 in 1991, sinus surgery - Social History Smoking Status: Current every day smoker How long have you smoked: 38 Exposure to second hand smoke: Yes Drug Use: none Patient Lives Alone: No - Nursing Vital Signs Nursing Vital Signs: Initial Vital Signs Temperature 99.1 F 11/05/16 10:27 Pulse Rate 110 H 11/05/16 10:27 Respiratory Rate 26 H 11/05/16 10:27 Blood Pressure 172/101 11/05/16 10:27 O2 Sat by Pulse Oximetry 93 L 11/05/16 10:27 Pain Scale Pain Intensity 4 - Physical Exam General Appearance: no apparent distress, alert Eye Exam: PERRL/EOMI, eyes nml inspection Ears, Nose, Throat Exam: normal ENT inspection, TMs normal, pharynx normal, moist mucous membranes Neck Exam: normal inspection, non-tender, supple, full range of motion Respiratory Exam: normal breath sounds, lungs clear, No respiratory distress Cardiovascular Exam: regular rate/rhythm, normal heart sounds, normal peripheral pulses Gastrointestinal/Abdomen Exam: soft, normal bowel sounds, No tenderness, No mass Back Exam: normal inspection, normal range of motion, No CVA tenderness, No vertebral tenderness Extremity Exam: normal inspection, normal range of motion, pelvis stable Neurologic Exam: alert, oriented x 3, cooperative, normal mood/affect, nml cerebellar function, nml station & gait, sensation nml, No motor deficits Skin Exam: normal color, warm, dry, No rash Lymphatic Exam: No adenopathy SpO2: 97 Oxygen Delivery: Nasal Cannula - Course Nursing assessment & vital signs reviewed: Yes Ordered Tests: Active Orders 24 hr Category Date Time Status Parachute Taper STAT Care 11/05/16 10:40 Active IV Insertion STAT Care 11/05/16 10:40 Active Oxygen-ED Only NASAL CANNULA 2 lpm Care 11/05/16 10:41 Active Pulse Oximetry (ED) STAT Care 11/05/16 10:40 Active ACETAMINOPHEN Stat Lab 11/05/16 11:00 Completed AMYLASE Stat Lab 11/05/16 11:00 Completed CMP Stat Lab 11/05/16 11:00 Completed ETHYL ALCOHOL Stat Lab 11/05/16 11:00 Completed LIPASE Stat Lab 11/05/16 11:00 Completed MAGNESIUM Stat Lab 11/05/16 11:00 Completed Medication Summary Generic Name Dose Route Start Last Admin Trade Name Clifton PRN Reason Stop Dose Admin Potassium Chloride 20 meq in 100 mls @ 50 mls/hr 11/05/16 12:00 11/05/16 12: 06 Potassium Chloride 20 Meq In Water 100ml IV 11/05/16 15:59 50 mls/hr Q2H BRIDGET Administration Discontinued Medications Generic Name Dose Route Start Last Admin Trade Name Clifton PRN Reason Stop Dose Admin Diazepam 10 mg 11/05/16 10:55 11/05/16 11:07 Valium 10 Mg/2 Ml Syringe IV 11/05/16 10:56 10 mg STAT ONE Administration Diazepam Confirm 11/05/16 11:03 Valium 10 Mg/2 Ml Syringe Administered 11/05/16 11:04 Dose 10 mg .ROUTE .STK-MED ONE Diazepam 5 mg 11/05/16 12:16 11/05/16 12:21 Valium 10 Mg/2 Ml Syringe IV 11/05/16 12:17 5 mg STAT ONE Administration Diazepam Confirm 11/05/16 12:17 Valium 10 Mg/2 Ml Syringe Administered 11/05/16 12:18 Dose 10 mg .ROUTE .STK-MED ONE Fentanyl Citrate 50 mcg 11/05/16 13:14 11/05/16 13:24 Sublimaze 100 Mcg/2 Ml IV 11/05/16 13:15 50 mcg STAT ONE Administration Fentanyl Citrate Confirm 11/05/16 13:22 Sublimaze 100 Mcg/2 Ml Administered 11/05/16 13:23 Dose 100 mcg .ROUTE .STK-MED ONE Folic Acid 1 mg 11/05/16 10:55 11/05/16 11:20 Folate 1 Mg PO 11/05/16 10:56 Not Given STAT ONE Folic Acid 1 mg 11/05/16 11:45 11/05/16 11:37 Folnate 5 Mg/Ml 10 Ml Vial IV 11/05/16 11:46 1 mg NOW ONE Administration Sodium Chloride 3,000 mls @ 999 mls/hr 11/05/16 10:55 11/05/16 11:08 Sodium Chloride 0.9% 1000 Ml IV 11/05/16 13:55 999 mls/hr .Q3H1M STA Administration Sodium Chloride Confirm 11/05/16 11:03 Sodium Chloride 0.9% 1000 Ml Administered 11/05/16 11:04 Dose 1,000 mls @ ud .ROUTE .STK-MED ONE Sodium Chloride 1,000 mls @ 999 mls/hr 11/05/16 12:06 11/05/16 12:08 Sodium Chloride 0.9% 1000 Ml IV 11/05/16 13:06 999 mls/hr .Q1H1M STA Administration Sodium Chloride Confirm 11/05/16 12:07 Sodium Chloride 0.9% 1000 Ml Administered 11/05/16 12:08 Dose 1,000 mls @ ud .ROUTE .STK-MED ONE Sodium Chloride Confirm 11/05/16 13:13 Sodium Chloride 0.9% 1000 Ml Administered 11/05/16 13:14 Dose 1,000 mls @ ud .ROUTE .STK-MED ONE Potassium Chloride 40 meq 11/05/16 13:19 11/05/16 13:24 Klor Con 10 Meq PO 11/05/16 13:20 40 meq STAT ONE Administration Potassium Chloride Confirm 11/05/16 13:22 Klor Con 10 Meq Administered 11/05/16 13:23 Dose 40 meq PO .STK-MED ONE Thiamine HCl 100 mg 11/05/16 10:55 11/05/16 11:07 Thiamine 200 Mg/2 Ml IV 11/05/16 10:56 100 mg STAT ONE Administration Thiamine HCl Confirm 11/05/16 11:03 Thiamine 200 Mg/2 Ml Administered 11/05/16 11:04 Dose 200 mg .ROUTE .STK-MED ONE Lab/Rad Data: Laboratory Result Diagrams 11/05/16 11:00 Laboratory Results 11/05/16 Range/Units 11:00 Sodium 142 (136-145) mEq/L Potassium 2.7 L* (3.5-5.1) mEq/L Chloride 94 L (98-107) mEq/L Carbon Dioxide 30.5 (21-32) mEq/L Anion Gap 18.9 H (5-15) MEQ/L BUN 4 L (9-20) mg/dL Creatinine 1.24 (0.55-1.30) mg/dl Estimated GFR > 60 ML/MIN Glucose 133 H (70-110) MG/DL Calcium 8.9 (8.5-10.1) mg/dL Magnesium 1.1 L (1.8-2.4) mg/dL Total Bilirubin 3.70 H (0.2-1.0) mg/dL AST 363 H (15-37) U/L ALT 84 H (12-78) U/L Alkaline Phosphatase 186 H (46-116) U/L Serum Total Protein 8.3 H (6.4-8.2) gm/dL Albumin 3.6 (3.4-5.0) g/dL Amylase 56 (25-115) U/L Lipase 248 (73-393) U/L Acetaminophen < 2.0 L (10-30) ug/ml Ethyl Alcohol < 0.010 (0.00-0.01) % - Progress Progress: improved Counseled pt/family regarding: drug and/or alcohol abuse, lab results, diagnosis , need for follow-up - Departure Time of Disposition: 14:17 Departure Disposition: Home Clinical Impression: Hypokalemia, Elevated liver enzymes, Alcoholism Alcohol dependence with withdrawal Qualifiers: Complication of substance-induced condition: uncomplicated Qualified Code(s): F10.230 - Alcohol dependence with withdrawal, uncomplicated Condition: Stable Critical Care Time: Yes Critical Care Time(excluding separately billable procedures): 75-104 minutes Referrals: AMBREEN PADILLA [Primary Care Provider] - Instructions: Alcohol Abuse and Alcoholism, Delirium Tremens Additional Instructions: Please take your medicine as prescribed. Follow-up with alcohol and on numerous group. Please follow at [facility]. Please follow up with her primary care physician and get your liver enzymes checked in next 1-2 weeks. Follow-up with your primary care doctor in 2 days. Prescriptions: Disulfiram [Antabuse] 500 mg PO DAILY #30 tablet Folic Acid/Vit Bcomp,C/Cu/Znox [Folbee Plus Cz Tablet] 1 each PO DAILY #30 tablet Potassium Chloride [K-Dur] 10 meq PO BID #60 tab.er.prt Chlordiazepoxide HCl 25 mg [Librium 25 mg] 25 mg PO QID #40 capsule
[2016-11-05 11:24] LABS: ALBUMIN 3.6 g/dL (3.4-5.0); ALKALINE PHOSPHATASE 186 U/L (46-116); ANION GAP 18.9 MEQ/L (5-15); BLOOD UREA NITROGEN 4 mg/dL (9-20); CHLORIDE 94 mEq/L (98-107); Carbon Dioxide 30.5 mEq/L (21-32); Glucose 133 MG/DL (70-110); LIPASE 248 U/L (73-393); MAGNESIUM 1.1 mg/dL (1.8-2.4); SGOT/AST 363 U/L (15-37); SGPT/ALT 84 U/L (12-78); SODIUM 142 mEq/L (136-145); Total Protein 8.3 gm/dL (6.4-8.2)
[2016-11-05 11:32] LABS: Potassium 2.7 mEq/L (3.5-5.1)
[2016-11-05] MEDS ORDERED: [UNRECOGNIZED DRUG - OTHER] IV ONE (11:45)
[2016-11-05] MEDS ORDERED: POTASSIUM CHLORIDE 20 mEq IN WATER 100ML 20 MEQ/100 ML BAG IV SCH (12:00)
[2016-11-05 12:02] LABS: ACETAMINOPHEN < 2.0 ug/ml (10-30); ETHYL ALCOHOL < 0.010 % (0.00-0.01)
[2016-11-05] MEDS ORDERED: Sodium Chloride 0.9% 1000 ML 1,000 ML IV STA (12:06)
[2016-11-05] MEDS ORDERED: SUBLIMAZE 100 MCG/2 ML IV ONE (13:14)
[2016-11-05] MEDS ORDERED: Klor Con 10 MEQ PO ONE ×2 (13:19→13:22)
[2016-11-05] MEDS ORDERED: SUBLIMAZE 100 MCG/2 ML ONE (13:22)
[2016-11-05 14:47] VITALS: BP 141/92; PULSE 100; O2SAT 98
== END 2016-11-05 14:47 | disposition home or self-care (01) ==
LOC: ED 10:27
DX: E87.6 Hypokalemia (principal); R74.8 Abnormal levels of other serum enzymes; F10.230 Alcohol dependence with withdrawal, uncomplicated; R25.1 Tremor, unspecified; R56.9 Unspecified convulsions; I25.10 Atherosclerotic heart disease of native coronary artery without angina pectoris; I10 Essential (primary) hypertension
CPT/HCPCS: 93041; 96374; 96365; 96366; 99285; 36000; 96360; 96361; 96375; 96376; 82150; 36415; 83690; 83735; 80053; G0481 ×2; J3010; J3360; J3480; A9270-GY

== ENCOUNTER 2016-11-13 03:00 | Inpatient (IN) | payer MEDICARE ==
[2016-11-13] MEDS ORDERED: Zosyn 3.375GM/100 Ml D5W 3.375 GM/100 ML IVPB IV STA (03:20)
[2016-11-13] MEDS ORDERED: DUONEB 0.5-3 MG/3 ml Neb IH ONE ×2 (03:20→03:38)
[2016-11-13] MEDS ORDERED: Zithromax 500 MG/ 250 ML NaCl Premix 500 MG/250 ML IVPB IV STA (03:20)
[2016-11-13] MEDS ORDERED: solu-MEDROL 125 MG IV ONE (03:20)
--- NOTE | 2016-11-13 03:25 | ERPHSYRPT ---
- History of Present Illness Time Seen by Provider: 11/13/16 03:18 Source: patient, family Exam Limitations: no limitations Patient Subjective Stated Complaint: Pt sts sick x 3 days with chills and sweat , productive cough with white sputum, pain in right chest with coughing, deep breathing. Triage Nursing Assessment: Pt alert, oriented, answers all questions appropriately. Skin pale, warm, dry. Resps labored with exertion. SPO2 97% room air. Audible rales. Physician History: pt is 50 year old male with COPD and periodic pneumonias now with fever and productive cough for three days , no vomiting; no CP; Timing/Duration: day(s) Cough Quality/Degree: moderate, productive cough Possible Cause: occasional episodes Modifying Factors: Improves With: albuterol nebulizer, coughing, oxygen Associated Symptoms: fever, cough, shortness of breath, wheezing Allergies/Adverse Reactions: No Known Drug Allergies Allergy (Verified 11/13/16 03:08) Hx Tetanus, Diphtheria Vaccination/Date Given: Yes (UNKNOWN) Hx Influenza Vaccination/Date Given: No Hx Pneumococcal Vaccination/Date Given: No Immunizations Up to Date: Yes - Review of Systems Constitutional: Fever, No Chills Eyes: No Symptoms Ears, Nose, & Throat: No Symptoms Respiratory: Cough, Dyspnea, Wheezing Cardiac: No Chest Pain, No Edema, No Syncope Abdominal/Gastrointestinal: No Abdominal Pain, No Nausea, No Vomiting, No Diarrhea Genitourinary Symptoms: No Dysuria Musculoskeletal: No Back Pain, No Neck Pain Skin: No Rash Neurological: No Dizziness, No Focal Weakness, No Sensory Changes Psychological: No Symptoms Endocrine: No Symptoms All Other Systems: Reviewed and Negative - Past Medical History Pertinent Past Medical History: Yes Neurological History: TIA ENT History: No Pertinent History Cardiac History: Coronary Artery Disease, Hypertension Respiratory History: COPD Endocrine Medical History: No Pertinent History Musculoskeletal History: Degenerative Disk Disease, Osteoarthritis, Other GI Medical History: Hepatitis, Pancreatitis History: No Pertinent History Psycho-Social History: No Pertinent History Male Reproductive Disorders: No Pertinent History Other Medical History: CARDIAC BLOCKAGE, Hepatitis C, alcoholism - Past Surgical History Past Surgical History: Yes Neuro Surgical History: No Pertinent History Cardiac: No Pertinent History Respiratory: No Pertinent History Gastrointestinal: No Pertinent History Genitourinary: No Pertinent History Musculoskeletal: Orthopedic Surgery Male Surgical History: No Pertinent History Other Surgical History: NECK SURG IN MAR 2013, Lower back surgery x 2 in 1991, sinus surgery - Social History Smoking Status: Current every day smoker How long have you smoked: 37 Exposure to second hand smoke: No Drug Use: none Patient Lives Alone: No - Nursing Vital Signs Nursing Vital Signs: Initial Vital Signs Temperature 97.9 F 11/13/16 03:05 Pulse Rate 90 11/13/16 03:05 Respiratory Rate 24 11/13/16 03:05 Blood Pressure 159/98 11/13/16 03:05 O2 Sat by Pulse Oximetry 98 11/13/16 03:05 Pain Scale Pain Intensity 8 - Physical Exam General Appearance: no apparent distress, alert Eye Exam: PERRL/EOMI, eyes nml inspection Ears, Nose, Throat Exam: normal ENT inspection, TMs normal, pharynx normal, moist mucous membranes Neck Exam: normal inspection, non-tender, supple, full range of motion Respiratory Exam: airway intact, crackles/rales, rhonchi, wheezing, No respiratory distress Cardiovascular Exam: regular rate/rhythm, normal heart sounds Gastrointestinal/Abdomen Exam: soft, No tenderness Rectal Exam: not done Back Exam: normal inspection, No CVA tenderness, No vertebral tenderness Extremity Exam: normal inspection, normal range of motion Neurologic Exam: alert, oriented x 3, cooperative, normal mood/affect, sensation nml, No motor deficits Skin Exam: normal color, warm, dry, No rash Lymphatic Exam: No adenopathy SpO2: 98 Oxygen Delivery: Room Air - Course Nursing assessment & vital signs reviewed: Yes EKG Interpreted by Me: Sinus Rhythm, NORMAL AXIS, Non-specific ST Changes - Radiology Exams Chest X-ray Interpretation: Reviewed by me, Infiltrates (RML) Ordered Tests: Active Orders 24 hr Category Date Time Status EKG-ER Only STAT Care 11/13/16 03:20 Active IV Insertion STAT Care 11/13/16 03:20 Active Pulse Oximetry (ED) STAT Care 11/13/16 03:20 Active CHEST 2 VIEWS (PA AND LAT) Stat Exams 11/13/16 03:21 Ordered CBC W DIFF Stat Lab 11/13/16 03:36 Completed CMP Stat Lab 11/13/16 03:36 Completed CULTURE,SPUTUM Stat Lab 11/13/16 04:03 Received Lactic Acid Stat Lab 11/13/16 04:56 Completed NT PRO BNP Stat Lab 11/13/16 03:36 Completed TROPONIN Q3H Lab 11/13/16 03:36 Completed TROPONIN Q3H Lab 11/13/16 06:30 Ordered TROPONIN Q3H Lab 11/13/16 09:30 Ordered TROPONIN Q3H Lab 11/13/16 12:30 Ordered TROPONIN Q3H Lab 11/13/16 15:30 Ordered Respiratory Nebulizer STAT RT 11/13/16 03:23 Completed Medication Summary Generic Name Dose Route Start Last Admin Trade Name Freq PRN Reason Stop Dose Admin Sodium Chloride 1,000 mls @ 100 mls/hr 11/13/16 03:30 11/13/16 03:30 Sodium Chloride 0.9% 1000 Ml IV 12/13/16 03:29 100 mls/hr .Q10H BRIDGET Administration Magnesium Sulfate/Dextrose 100 mls @ 100 mls/hr 11/13/16 03:45 11/13/16 04:38 Magnesium 1 Gm / 100 Ml D5w IV 11/13/16 05:44 100 mls/hr Q1H BRIDGET Administration Potassium Chloride 20 meq in 100 mls @ 50 mls/hr 11/13/16 04:19 11/13/16 04: 48 Potassium Chloride 20 Meq In Water 100ml IV 11/13/16 06:18 50 mls/hr STAT ONE Administration Discontinued Medications Generic Name Dose Route Start Last Admin Trade Name Freq PRN Reason Stop Dose Admin Albuterol/Ipratropium 3 ml 11/13/16 03:20 11/13/16 03:41 Duoneb 0.5-3 Mg/3 Ml Neb IH 11/13/16 03:21 3 ml STAT ONE Administration Albuterol/Ipratropium Confirm 11/13/16 03:38 Duoneb 0.5-3 Mg/3 Ml Neb Administered 11/13/16 03:39 Dose 3 ml IH .STK-MED ONE Azithromycin 500 mg in 250 mls @ 250 mls/hr 11/13/16 03:20 11/13/16 04:08 Zithromax 500 Mg/ 250 Ml Nacl Premix IV 11/13/16 04:19 250 mls/hr STAT STA Administration Piperacillin Sod/Tazobactam Sod 3.375 gm in 100 mls @ 200 mls/hr 11/13/16 03: 20 11/13/16 03:29 Zosyn 3.375gm/100 Ml D5w IV 11/13/16 03:49 200 mls/hr STAT STA Administration Azithromycin Confirm 11/13/16 03:26 Zithromax 500 Mg/ 250 Ml Nacl Premix Administered 11/13/16 03:27 Dose 500 mg in 250 mls @ ud IV .STK-MED ONE Piperacillin Sod/Tazobactam Sod Confirm 11/13/16 03:26 Zosyn 3.375gm/100 Ml D5w Administered 11/13/16 03:27 Dose 3.375 gm in 100 mls @ ud IV .STK-MED ONE Potassium Chloride/Sodium Chloride Confirm 11/13/16 04:35 Sodium Chloride 0.9% W/ 20 Meq Kcl/Liter Administered 11/13/16 04:36 Dose 1,000 mls @ ud IV .STK-MED ONE Potassium Chloride Confirm 11/13/16 04:47 Potassium Chloride 20 Meq In Water 100ml Administered 11/13/16 04:48 Dose 100 mls @ ud IV .STK-MED ONE Methylprednisolone Sodium Succinate 125 mg 11/13/16 03:20 11/13/16 03:29 Solu-Medrol 125 Mg IV 11/13/16 03:21 125 mg STAT ONE Administration Methylprednisolone Sodium Succinate Confirm 11/13/16 03:26 Solu-Medrol 125 Mg Administered 11/13/16 03:27 Dose 125 mg .ROUTE .STK-MED ONE Potassium Bicarbonate 25 meq 11/13/16 04:19 11/13/16 04:38 K-Lyte 25 Meq PO 11/13/16 04:20 25 meq STAT ONE Administration Potassium Bicarbonate Confirm 11/13/16 04:34 K-Lyte 25 Meq Administered 11/13/16 04:35 Dose 25 meq .ROUTE .STK-MED ONE Lab/Rad Data: Laboratory Result Diagrams 11/13/16 03:36 11/13/16 03:36 Laboratory Results 11/13/16 11/13/16 11/13/16 Range/Units 04:56 03:36 03:36 WBC (4.0-10.5) K/mm3 RBC (4.1-5.6) M/mm3 Hgb (12.5-18.0) gm/dl Hct (42-50) % MCV (78-100) fl MCH (26-32) pg MCHC (32-36) g/dl RDW (11.5-14.0) % Plt Count (150-450) K/mm3 MPV (6-9.5) fl Gran % (36.0-66.0) % Lymphocytes % (24.0-44.0) % Monocytes % (0.0-12.0) % Eosinophils % (0.00-5.0) % Basophils % (0.0-0.4) % Basophils # (0-0.4) Sodium 144 (136-145) mEq/L Potassium 2.5 L* (3.5-5.1) mEq/L Chloride 104 (98-107) mEq/L Carbon Dioxide 31.4 (21-32) mEq/L Anion Gap 11.1 (5-15) MEQ/L BUN 13 (9-20) mg/dL Creatinine 1.14 (0.55-1.30) mg/dl Estimated GFR > 60 ML/MIN Glucose 121 H (70-110) MG/DL Lactic Acid 1.5 (0.4-2.0) Calcium 8.7 (8.5-10.1) mg/dL Total Bilirubin 0.70 (0.2-1.0) mg/dL AST 74 H (15-37) U/L ALT 49 (12-78) U/L Alkaline Phosphatase 113 (46-116) U/L Troponin I < 0.017 (0.000-0.056) ng/ml NT-Pro-B Natriuret Pep 751 H (0-125) pg/ml Serum Total Protein 6.4 (6.4-8.2) gm/dL Albumin 2.9 L (3.4-5.0) g/dL 11/13/16 Range/Units 03:36 WBC 4.4 (4.0-10.5) K/mm3 RBC 3.70 L (4.1-5.6) M/mm3 Hgb 13.4 (12.5-18.0) gm/dl Hct 39.9 L (42-50) % MCV 107.8 H (78-100) fl MCH 36.2 H (26-32) pg MCHC 33.6 (32-36) g/dl RDW 11.6 (11.5-14.0) % Plt Count 186 (150-450) K/mm3 MPV 12.3 H (6-9.5) fl Gran % 50.6 (36.0-66.0) % Lymphocytes % 27.8 (24.0-44.0) % Monocytes % 15.4 H (0.0-12.0) % Eosinophils % 3.4 (0.00-5.0) % Basophils % 2.8 (0.0-0.4) % Basophils # 0.12 (0-0.4) Sodium (136-145) mEq/L Potassium (3.5-5.1) mEq/L Chloride (98-107) mEq/L Carbon Dioxide (21-32) mEq/L Anion Gap (5-15) MEQ/L BUN (9-20) mg/dL Creatinine (0.55-1.30) mg/dl Estimated GFR ML/MIN Glucose (70-110) MG/DL Lactic Acid (0.4-2.0) Calcium (8.5-10.1) mg/dL Total Bilirubin (0.2-1.0) mg/dL AST (15-37) U/L ALT (12-78) U/L Alkaline Phosphatase (46-116) U/L Troponin I (0.000-0.056) ng/ml NT-Pro-B Natriuret Pep (0-125) pg/ml Serum Total Protein (6.4-8.2) gm/dL Albumin (3.4-5.0) g/dL - Progress Progress: improved, re-examined Air Movement: good Progress Note: 11/13/16 05:08 discussed results with pt and Dr. Walkre covering for Dr Padilla, and all agree best for pt to come in on obs and tx to correct K and start antibiotics. Blood Culture(s) Obtained: No Antibiotics given: Yes Discussed with : Denise Will see patient in: hospital (observation) Counseled pt/family regarding: lab results, diagnosis, need for follow-up, rad results - Departure Time of Disposition: 05:09 Departure Disposition: Observation Clinical Impression: Hypokalemia COPD (chronic obstructive pulmonary disease) Qualifiers: COPD type: COPD with acute exacerbation Qualified Code(s): J44.1 - Chronic obstructive pulmonary disease with (acute) exacerbation Pneumonia Qualifiers: Laterality: right Lung location: middle lobe of lung Condition: Good Critical Care Time: No Referrals: AMBREEN PADILLA [Primary Care Provider] - Instructions: Chronic Obstructive Pulmonary Disease, Pneumonia -- Adult Additional Instructions: followup with your Dr to recheck blood pressure
[2016-11-13] MEDS ORDERED: Zosyn 3.375GM/100 Ml D5W 3.375 GM/100 ML IVPB IV ONE (03:26)
[2016-11-13] MEDS ORDERED: solu-MEDROL 125 MG ONE (03:26)
[2016-11-13] MEDS ORDERED: Zithromax 500 MG/ 250 ML NaCl Premix 500 MG/250 ML IVPB IV ONE (03:26)
[2016-11-13] MEDS ORDERED: Sodium Chloride 0.9% 1000 ML 1,000 ML ONE (03:26)
[2016-11-13] MEDS ORDERED: Sodium Chloride 0.9% 1000 ML 1,000 ML IV SCH (03:30)
[2016-11-13 03:40] LABS: BASOPHIL % 2.8 % (0.0-0.4); Eosinophil % 3.4 % (0.00-5.0); Granulocytes % 50.6 % (36.0-66.0); Lymphocytes % 27.8 % (24.0-44.0); Mean Cell Volume 107.8 fl (78-100); Mean Corpuscular Hemoglobin 36.2 pg (26-32); Mean Platelet Volume 12.3 fl (6-9.5); Monocytes % 15.4 % (0.0-12.0); Platelet Count 186 K/mm3 (150-450); Red Cell Distribution Width 11.6 % (11.5-14.0); White Blood Count 4.4 K/mm3 (4.0-10.5)
[2016-11-13 04:16] LABS: ALBUMIN 2.9 g/dL (3.4-5.0); ALKALINE PHOSPHATASE 113 U/L (46-116); ANION GAP 11.1 MEQ/L (5-15); BLOOD UREA NITROGEN 13 mg/dL (9-20); CHLORIDE 104 mEq/L (98-107); Carbon Dioxide 31.4 mEq/L (21-32); Glucose 121 MG/DL (70-110); SGOT/AST 74 U/L (15-37); SGPT/ALT 49 U/L (12-78); SODIUM 144 mEq/L (136-145); Total Protein 6.4 gm/dL (6.4-8.2)
[2016-11-13 04:18] LABS: Potassium 2.5 mEq/L (3.5-5.1)
[2016-11-13] MEDS ORDERED: K-LYTE 25 MEQ PO ONE (04:19)
[2016-11-13] MEDS ORDERED: POTASSIUM CHLORIDE 20 mEq IN WATER 100ML 20 MEQ/100 ML BAG IV ONE (04:19)
[2016-11-13] MEDS ORDERED: K-LYTE 25 MEQ ONE (04:34)
[2016-11-13] MEDS ORDERED: Sodium Chloride 0.9% W/ 20 mEq KCl/LITER 0 ML IV ONE (04:35)
[2016-11-13] MEDS: Magnesium 1 Gm / 100 Ml D5W*** 100 ML IV SCH ×2 (04:38→05:18)
[2016-11-13] MEDS ORDERED: POTASSIUM CHLORIDE 20 mEq IN WATER 100ML 100 ML IV ONE (04:47)
[2016-11-13] MEDS ORDERED: PROVENTIL COMMON CANISTER IH PRN (05:56)
[2016-11-13] MEDS: DUONEB 0.5-3 MG/3 ml Neb IH SCH ×5 (07:03→22:38)
[2016-11-13] MEDS: POTASSIUM CHLORIDE 20 mEq IN WATER 100ML 20 MEQ/100 ML BAG IV SCH ×2 (09:23→12:45)
[2016-11-13] MEDS: LIBRIUM 25 MG PO SCH ×4 (09:24→22:11)
--- NOTE | 2016-11-13 09:26 | PCM.HP ---
History of Present Illness - Chief Complaint Chief Complaint: Shortness of Breath History of Present Illness: is a 50 year old male who presented with a 3 day history of cough, congestion and shortness of breath for 3-4 days. He had white sputum production , no known fever. - Review of Systems Constitutional: No Symptoms Respiratory: Cough, Short Of Breath Cardiac: No Chest Pain, No Edema, No Syncope Abdominal/Gastrointestinal: No Abdominal Pain, No Nausea, No Vomiting, No Diarrhea Skin: No Rash All Other Systems: Reviewed and Negative Medications & Allergies Home Medications: Home Medication List Chlordiazepoxide HCl 25 mg [Librium 25 mg] 25 mg PO QID #40 capsule [Rx Confirmed 11/13/16] Potassium Chloride [K-Dur] 10 meq PO BID #60 tab.er.prt 11/05/16 [Rx Confirmed 11/13/16] Albuterol Common Canister [Proventil Common Canister] 1 puff IH QID PRN [History Confirmed 11/13/16] Allergies/Adverse Reactions: Allergies Allergy/AdvReac Type Severity Reaction Status Date / Time No Known Drug Allergies Allergy Verified 11/13/16 03:08 - Past Medical History Past Medical History: Yes Neurological History: TIA ENT History: No Pertinent History Cardiac History: Coronary Artery Disease, Hypertension Respiratory History: COPD Endocrine Medical History: No Pertinent History Musculoskelatal History: Degenerative Disk Disease, Osteoarthritis, Other GI Medical History: Hepatitis, Pancreatitis History: No Pertinent History Pyscho-Social History: No Pertinent History Male Reproductive Disorders: No Pertinent History Comment: CARDIAC BLOCKAGE, Hepatitis C, alcoholism - Past Surgical History Past Surgical History: Yes Neuro Surgical History: No Pertinent History Cardiac History: No Pertinent History Respiratory Surgery: No Pertinent History GI Surgical History: No Pertinent History Genitourinary Surgical Hx: No Pertinent History Musculskeletal Surgical Hx: Orthopedic Surgery Male Surgical History: No Pertinent History Other Surgical History: NECK SURG IN MAR 2013, Lower back surgery x 2 in 1991, sinus surgery - Social History Smoking Status: Current every day smoker How long have you smoked: 37 Exposure to second hand smoke: No Alcohol: Daily Drug Use: none - Physical Exam Vital Signs: Vital Signs - 24 hr Temp Pulse Resp BP Pulse Ox 11/13/16 07:27 98.5 F 90 26 H 181/101 92 L 11/13/16 07:00 80 18 96 11/13/16 06:45 98.5 F 90 26 H 161/101 95 11/13/16 05:54 87 22 95 11/13/16 05:16 20 92 L 11/13/16 05:15 93 H 24 151/116 92 L 11/13/16 05:10 98 11/13/16 03:41 92 H 24 94 L 11/13/16 03:24 97 11/13/16 03:05 97.9 F 90 24 159/98 98 General Appearance: no apparent distress, alert Eye Exam: PERRL/EOMI, eyes nml inspection Respiratory Exam: prolonged expirations, wheezing Cardiovascular Exam: regular rate/rhythm, normal heart sounds, normal peripheral pulses Gastrointestinal/Abdomen Exam: soft, normal bowel sounds, No tenderness, No mass Extremity Exam: normal inspection, normal range of motion, pelvis stable Skin Exam: normal color, warm, dry, No rash Results - Labs Lab/Micro Results: Accuchecks Date 11/13/16 Lab Results-Last 24 Hours 11/13/16 Range/Units 06:48 Troponin I < 0.017 (0.000-0.056) ng/ml Accuchecks Date 11/13/16 - Other Procedures and Tests Respiratory Therapy 11/13/16 05:56 Respiratory MDI 11/13/16 06:57 Oxygen NASAL CANNULA 2 lpm Assessment/Plan (1) COPD exacerbation Current Visit: Yes Status: Acute Assessment & Plan: continue IV abx, steroids and nebs Code(s): J44.1 - CHRONIC OBSTRUCTIVE PULMONARY DISEASE W (ACUTE) EXACERBATION (2) Hypokalemia Current Visit: Yes Status: Acute Assessment & Plan: replacing Code(s): E87.6 - HYPOKALEMIA (3) Pneumonia Current Visit: Yes Status: Acute Qualifiers: Laterality: right Lung location: middle lobe of lung Assessment & Plan: RML, rocephin/zithromax Code(s): J18.9 - PNEUMONIA, UNSPECIFIED ORGANISM
[2016-11-13] MEDS ORDERED: K-LYTE 25 MEQ PO SCH (10:00)
[2016-11-13] MEDS: ROCEPHIN 1 Gm-D5w 50 ml Bag** 1 G/50 ML IVPB IV SCH (10:41)
[2016-11-13] MEDS: ENOXAPARIN SODIUM SQ SCH (10:41)
[2016-11-13] MEDS: Sodium Chloride 0.9% W/ 20 mEq KCl/LITER 1,000 ML IV SCH ×2 (11:21→21:28)
[2016-11-13] MEDS: solu-MEDROL 125 MG IV SCH ×3 (11:21→23:43)
[2016-11-13] MEDS: NovoLIN R SQ PRN ×2 (11:40→16:57)
[2016-11-13] MEDS ORDERED: Zosyn 3.375GM/100 Ml D5W 3.375 GM/100 ML IVPB IV SCH (12:00)
[2016-11-13] MEDS ORDERED: NON-FORMULARY ITEM (Potassium Chloride [K-Dur] 10 MEQ) PO SCH (22:00)
[2016-11-13] MEDS: NICODERM CQ 14 MG TOP SCH (22:10)
[2016-11-13] MEDS: Zithromax 500 MG/ 250 ML NaCl Premix 500 MG/250 ML IVPB IV SCH (22:11)
[2016-11-13] MEDS: Klor Con 10 MEQ PO SCH (22:11)
[2016-11-14] MEDS: DUONEB 0.5-3 MG/3 ml Neb IH SCH ×6 (03:36→23:41)
[2016-11-14] MEDS: solu-MEDROL 125 MG IV SCH (05:45)
[2016-11-14 05:49] LABS: Mean Cell Volume 108.8 fl (78-100); Mean Platelet Volume 12.4 fl (6-9.5); Platelet Count 195 K/mm3 (150-450); Red Blood Count 3.64 M/mm3 (4.1-5.6); Red Cell Distribution Width 11.6 % (11.5-14.0); White Blood Count 7.4 K/mm3 (4.0-10.5)
[2016-11-14 05:58] LABS: Mean Corpuscular Hemoglobin 35.9 pg (26-32)
[2016-11-14 06:07] LABS: ANION GAP 12.3 MEQ/L (5-15); BLOOD UREA NITROGEN 8 mg/dL (9-20); CHLORIDE 105 mEq/L (98-107); Carbon Dioxide 28.5 mEq/L (21-32); Glucose 273 MG/DL (70-110); Potassium 3.6 mEq/L (3.5-5.1); SODIUM 142 mEq/L (136-145)
[2016-11-14] MEDS: NovoLIN R SQ PRN ×4 (07:42→21:46)
--- NOTE | 2016-11-14 08:16 | PCM.NOTE ---
Date and Time: 11/14/16812 Subjective Assessment: still very weak, shaking, short of breath, productive yellow/turpin musous cough, some nausea, unsteady gait tried nebs and O2 at home with no relief pain in right lower ribs Objective Exam General Appearance: no apparent distress, anxiety Neurologic Exam: alert, oriented x 3, cooperative, other (diffuse tremors) Skin Exam: normal color, warm, dry, No rash Eye Exam: PERRL, EOMI, eyes nml inspection, No scleral icterus Ears, Nose, Throat Exam: normal ENT inspection, pharynx normal, moist mucous membranes Neck Exam: normal inspection, non-tender, supple, full range of motion Respiratory Exam: wheezing (diffuse), No respiratory distress, No crackles/rales Cardiovascular Exam: tachycardia Gastrointestinal/Abdomen Exam: soft, No tenderness, No mass Extremity Exam: normal inspection, normal range of motion Back Exam: normal inspection, normal range of motion, No CVA tenderness, No vertebral tenderness Male Genitalia Exam: deferred Rectal Exam: deferred OBJECTIVE DATA Vital Signs: Vital Signs - 24 hr Temp Pulse Resp BP Pulse Ox 11/14/16 07:49 98.6 F 113 H 20 146/87 90 L 11/14/16 06:35 108 H 18 96 11/14/16 04:00 98.3 F 105 H 21 142/94 93 L 11/14/16 03:38 103 H 20 94 L 11/14/16 00:00 98.9 F 111 H 24 129/86 93 L 11/13/16 22:40 106 H 14 95 11/13/16 20:00 98.4 F 104 H 19 124/85 91 L 11/13/16 19:00 97 H 18 94 L 11/13/16 16:00 98.0 F 103 H 21 137/87 91 L 11/13/16 14:57 84 18 95 11/13/16 12:00 98.3 F 87 24 148/90 94 L 11/13/16 11:00 88 20 94 L Oxygen-Last 24 hours O2 Percentage 2 Liters = 28% O2 Percentage 2 Liters = 28% O2 Percentage 2 Liters = 28% O2 Percentage 2 Liters = 28% Pain Assessment - Last Documented Pain Intensity 2 Pain Scale Used 0-10 Pain Scale Intake and Output: Intake & Output 11/11/16 11/12/16 11/13/1611/14/17 11:59 11:59 11:59 11:59 Intake Total 3982 Output Total 4 Balance 3978 Weight 79.243 kg 84.368 kg Lab Results: Accuchecks Date 11/14/16 Date 11/13/1611/13/1611/13/16 Time 07:30 Time 21:00 Time 16:30 Time 11:30 Accucheck Value: 273 Accucheck Value: 336 Accucheck Value: 271 Accucheck Value: 359 Lab Results-Last 24 Hours 11/13/16 11/13/16 11/13/16 Range/Units 09:41 12:30 15:35 WBC (4.0-10.5) K/mm3 RBC (4.1-5.6) M/mm3 Hgb (12.5-18.0) gm/dl Hct (42-50) % MCV (78-100) fl MCH (26-32) pg MCHC (32-36) g/dl RDW (11.5-14.0) % Plt Count (150-450) K/mm3 MPV (6-9.5) fl Sodium (136-145) mEq/L Potassium (3.5-5.1) mEq/L Chloride (98-107) mEq/L Carbon Dioxide (21-32) mEq/L Anion Gap (5-15) MEQ/L BUN (9-20) mg/dL Creatinine (0.55-1.30) mg/dl Estimated GFR ML/MIN Glucose (70-110) MG/DL Calcium (8.5-10.1) mg/dL Troponin I < 0.017 < 0.017 < 0.017 (0.000-0.056) ng/ml 11/13/16 11/14/16 11/14/16 Range/Units 18:35 05:30 05:30 WBC 7.4 (4.0-10.5) K/mm3 RBC 3.64 L (4.1-5.6) M/mm3 Hgb 13.1 (12.5-18.0) gm/dl Hct 39.6 L (42-50) % MCV 108.8 H (78-100) fl MCH 35.9 H (26-32) pg MCHC 33.1 (32-36) g/dl RDW 11.6 (11.5-14.0) % Plt Count 195 (150-450) K/mm3 MPV 12.4 H (6-9.5) fl Sodium 142 (136-145) mEq/L Potassium 3.6 3.6 (3.5-5.1) mEq/L Chloride 105 (98-107) mEq/L Carbon Dioxide 28.5 (21-32) mEq/L Anion Gap 12.3 (5-15) MEQ/L BUN 8 L (9-20) mg/dL Creatinine 1.18 (0.55-1.30) mg/dl Estimated GFR > 60 ML/MIN Glucose 273 H (70-110) MG/DL Calcium 8.1 L (8.5-10.1) mg/dL Troponin I (0.000-0.056) ng/ml Assessment/Plan (1) COPD exacerbation Current Visit: Yes Status: Acute Assessment & Plan: wean steroids today continue antibiotics continue the librium for the alcohol withdrawal diffuse tremors likely worse with the steroids he had seizure from withdrawal last week and was in the ED for this and given librium and d/c home he states has not drank since then. wean o2 as tolerated continue nebs Code(s): J44.1 - CHRONIC OBSTRUCTIVE PULMONARY DISEASE W (ACUTE) EXACERBATION (2) Alcohol withdrawal Current Visit: Yes Status: Acute Code(s): F10.239 - ALCOHOL DEPENDENCE WITH WITHDRAWAL, UNSPECIFIED
[2016-11-14] MEDS: Sodium Chloride 0.9% W/ 20 mEq KCl/LITER 1,000 ML IV SCH ×2 (08:41→19:49)
[2016-11-14] MEDS: ENOXAPARIN SODIUM SQ SCH (08:42)
[2016-11-14] MEDS: ROCEPHIN 1 Gm-D5w 50 ml Bag** 1 G/50 ML IVPB IV SCH (08:42)
[2016-11-14] MEDS: LIBRIUM 25 MG PO SCH ×4 (08:43→21:32)
[2016-11-14] MEDS: Klor Con 10 MEQ PO SCH ×2 (08:43→21:32)
--- NOTE | 2016-11-14 09:48 | XRAY ---
Indication: Productive cough. Pneumonia. COPD. Comparison: June 04, 2016. PA/lateral chest again hyperinflated and clear with a few incidental calcified granulomas. Heart is not enlarged. Bony thorax intact again with mild degenerative changes. Impression: Stable nonacute hyperinflated chest with chronic features.
[2016-11-14] MEDS: DELTASONE 20 MG PO SCH (11:24)
[2016-11-14] MEDS ORDERED: MOTRIN 600 MG PO PRN (19:44)
[2016-11-14] MEDS: NICODERM CQ 14 MG TOP SCH (20:42)
[2016-11-14] MEDS: Zithromax 500 MG/ 250 ML NaCl Premix 500 MG/250 ML IVPB IV SCH (21:32)
[2016-11-15] MEDS: DUONEB 0.5-3 MG/3 ml Neb IH SCH ×6 (03:23→23:04)
[2016-11-15] MEDS: Sodium Chloride 0.9% W/ 20 mEq KCl/LITER 1,000 ML IV SCH (07:06)
--- NOTE | 2016-11-15 07:57 | PCM.NOTE ---
Date and Time: 11/15/16 0751 Subjective Assessment: still severe shortness of breath and productive cough of turpin sputum culture positive awaiting identifications afebrile tremors continue having substernal pain severe with coughing no nausea no vomiting tolerating po ok shortness of breath with minimal exertion Objective Exam General Appearance: alert Neurologic Exam: oriented x 3, cooperative, other (tremors bilateral hands, voice head body) Skin Exam: warm, dry, No rash Eye Exam: No scleral icterus, No pale conjunctivae Ears, Nose, Throat Exam: moist mucous membranes Neck Exam: non-tender, supple Respiratory Exam: prolonged expirations, wheezing Cardiovascular Exam: tachycardia Gastrointestinal/Abdomen Exam: soft, normal bowel sounds, distention (mild), No tenderness Extremity Exam: normal inspection, No pedal edema OBJECTIVE DATA Vital Signs: Vital Signs - 24 hr Temp Pulse Resp BP Pulse Ox 11/15/16 07:12 98 F 86 18 150/97 92 L 11/15/16 06:50 88 18 93 L 11/15/16 04:03 98.4 F 96 H 22 144/81 93 L 11/15/16 04:00 22 11/15/16 03:23 96 H 22 93 L 11/15/16 00:00 98.3 F 107 H 24 138/90 94 L 11/14/16 23:42 95 H 20 99 11/14/16 20:00 98.2 F 105 H 21 152/104 98 11/14/16 19:44 103 H 20 95 11/14/16 16:00 98.2 F 105 H 20 159/96 91 L 11/14/16 14:29 104 H 20 93 L 11/14/16 12:00 20 11/14/16 11:19 98.3 F 102 H 20 155/94 93 L 11/14/16 10:43 105 H 20 93 L 11/14/16 08:00 20 Oxygen-Last 24 hours O2 Percentage 2 Liters = 28% O2 Percentage 2 Liters = 28% O2 Percentage 2 Liters = 28% O2 Percentage 2 Liters = 28% Pain Assessment - Last Documented Pain Intensity 3 Pain Scale Used [facility] Intake and Output: Intake & Output 11/12/16 11/13/16 11/14/16 11/15/16 11:59 11:59 11:59 11:59 Intake Total 3982 5081 Output Total 4 Balance 3978 5081 Weight 79.243 kg 84.368 kg 87.135 kg Lab Results: Accuchecks Date 11/15/16 Date 11/14/16 Date 11/14/16 Date 11/14/16 Time 07:10 Time 22:00 Time 16:30 Time 11:25 Accucheck Value: 117 Accucheck Value: 237 Accucheck Value: 252 Accucheck Value: 244 Lab Results-Last 24 Hours 11/14/16 Range/Units 05:30 Hemoglobin A1c 5.5 (4.5-6.2) Multi-Disciplinary Progress Notes: Multi-Disciplinary Progress Notes 11/14/16 09:00 (created 11/14/16 09:57) Case Management Note by Bina Landon DISCHARGE PLAN REVIEWED, PROVIDES SELF CARE, INDEPENDENT WITH ALL ADL'S. HAS BEEN USING 'S OXYGEN AT HOME PRN. DECLINED NEEDS FOR DISCHARGE. DID DISCUSS PROCESS FOR QUALIFYING FOR HOME OXYGEN - INSTEAD OF JUST USING HIS ' S. REPORTS THAT HE WANTS TO HAVE [facility] FOR OXYGEN NEEDS IF HE QUALIFIES ON DISCHARGE. PLAN TO RETURN HOME TO PRE EPISODIC LEVEL OF [facility]. Initialized on 11/14/16 09:57 - END OF NOTE Assessment/Plan (1) COPD exacerbation Current Visit: Yes Status: Acute Assessment & Plan: severe still continue the prednisone add ppi for gi ppx on steroid stop the ibuprofen with the substernal pain continue nebs await sputum culture continue antibiotics wean o2 as tolerated Code(s): J44.1 - CHRONIC OBSTRUCTIVE PULMONARY DISEASE W (ACUTE) EXACERBATION (2) Alcohol withdrawal Current Visit: Yes Status: Acute Assessment & Plan: try to wean librium still severe symptoms so will add gabapentin tid as well add MV as well Code(s): F10.239 - ALCOHOL DEPENDENCE WITH WITHDRAWAL, UNSPECIFIED (3) Acute hypoxemic respiratory failure Current Visit: Yes Status: Acute Code(s): J96.01 - ACUTE RESPIRATORY FAILURE WITH HYPOXIA
[2016-11-15] MEDS: NORCO 5/325 MG PO PRN (08:09)
[2016-11-15] MEDS: Tussionex Pennkinetic Susp PO PRN (08:10)
[2016-11-15] MEDS: DELTASONE 20 MG PO SCH (08:10)
[2016-11-15] MEDS: Protonix 40MG Tablet PO SCH (08:12)
[2016-11-15] MEDS: Klor Con 10 MEQ PO SCH ×3 (08:12→21:17)
[2016-11-15] MEDS: THERAGRAN MULTIVITAMIN PO SCH (08:12)
[2016-11-15] MEDS: ENOXAPARIN SODIUM SQ SCH (08:12)
[2016-11-15] MEDS: LIBRIUM 25 MG PO SCH ×3 (08:12→21:16)
[2016-11-15] MEDS: NEURONTIN 300 MG PO SCH ×3 (08:12→21:16)
[2016-11-15] MEDS: ROCEPHIN 1 Gm-D5w 50 ml Bag** 1 G/50 ML IVPB IV SCH (08:13)
[2016-11-15 09:29] LABS: ANION GAP 12.1 MEQ/L (5-15); BLOOD UREA NITROGEN 10 mg/dL (9-20); CHLORIDE 108 mEq/L (98-107); Carbon Dioxide 25.5 mEq/L (21-32); Glucose 193 MG/DL (70-110); MAGNESIUM 1.2 mg/dL (1.8-2.4); Potassium 3.2 mEq/L (3.5-5.1); SODIUM 142 mEq/L (136-145)
[2016-11-15] MEDS: Magnesium 1 Gm / 100 Ml D5W*** 100 ML IV SCH ×2 (12:27→14:20)
[2016-11-15] MEDS: Robitussin AC Syrup Unit Dose Cup PO PRN (12:27)
[2016-11-15] MEDS ORDERED: Lasix 20 MG/2 ML IV ONE (16:00)
[2016-11-15] MEDS: NovoLIN R SQ PRN ×2 (16:29→23:28)
[2016-11-15] MEDS: NICODERM CQ 14 MG TOP SCH (20:32)
[2016-11-15] MEDS: Zithromax 500 MG/ 250 ML NaCl Premix 500 MG/250 ML IVPB IV SCH (21:17)
[2016-11-16] MEDS: DUONEB 0.5-3 MG/3 ml Neb IH SCH ×6 (02:59→23:33)
[2016-11-16 05:45] LABS: Mean Cell Volume 110.6 fl (78-100); Mean Platelet Volume 11.5 fl (6-9.5); Platelet Count 205 K/mm3 (150-450); Red Blood Count 3.57 M/mm3 (4.1-5.6); Red Cell Distribution Width 11.6 % (11.5-14.0); White Blood Count 5.7 K/mm3 (4.0-10.5)
[2016-11-16] MEDS: Tussionex Pennkinetic Susp PO PRN (05:46)
[2016-11-16 05:52] LABS: BLOOD UREA NITROGEN 7 mg/dL (9-20); CHLORIDE 107 mEq/L (98-107); Carbon Dioxide 31.7 mEq/L (21-32); Glucose 219 MG/DL (70-110); MAGNESIUM 1.5 mg/dL (1.8-2.4); Potassium 3.4 mEq/L (3.5-5.1); SODIUM 143 mEq/L (136-145)
[2016-11-16 06:16] LABS: Mean Corpuscular Hemoglobin 35.8 pg (26-32)
[2016-11-16] MEDS: NovoLIN R SQ PRN ×4 (07:53→21:59)
[2016-11-16] MEDS: Magnesium 1 Gm / 100 Ml D5W*** 100 ML IV SCH ×2 (08:09→09:41)
[2016-11-16] MEDS: THERAGRAN MULTIVITAMIN PO SCH (08:10)
[2016-11-16] MEDS: LIBRIUM 25 MG PO SCH ×3 (08:12→21:59)
[2016-11-16] MEDS: Protonix 40MG Tablet PO SCH (08:13)
[2016-11-16] MEDS: DELTASONE 20 MG PO SCH (08:13)
[2016-11-16] MEDS: NEURONTIN 300 MG PO SCH ×3 (08:13→22:02)
[2016-11-16] MEDS: Catapres 0.1 MG PO SCH ×3 (08:13→22:00)
[2016-11-16] MEDS: ENOXAPARIN SODIUM SQ SCH (08:15)
--- NOTE | 2016-11-16 08:15 | PCM.NOTE ---
Date and Time: 11/16/16 0810 Subjective Assessment: He continues to have severe shaking and feeling short of breath he has sharp pains on deep inhalation and exhalation substernal the coughing has decreased some he feels more swollen as well. he has no abdominal pain or nausea and the pain does not go into the epigastrium Objective Exam General Appearance: mild distress, anxiety Neurologic Exam: alert, oriented x 3, cooperative, other (bilateral hand arm voice head body tremors) Skin Exam: warm, dry Eye Exam: No scleral icterus Ears, Nose, Throat Exam: moist mucous membranes Neck Exam: non-tender, supple Respiratory Exam: crackles/rales (bibasilar), rhonchi, wheezing (diffuse) Cardiovascular Exam: tachycardia, No murmur Gastrointestinal/Abdomen Exam: soft, normal bowel sounds, distention (mild), No tenderness, No guarding, No rebound Extremity Exam: normal inspection, No calf tenderness OBJECTIVE DATA Vital Signs: Vital Signs - 24 hr Temp Pulse Resp BP Pulse Ox 11/16/16 08:00 97.2 F 103 H 26 H 161/103 96 11/16/16 06:40 102 H 22 96 11/16/16 04:00 20 11/16/16 03:55 97.3 F 87 20 166/101 93 L 11/16/16 03:01 87 20 93 L 11/16/16 00:00 98.6 F 87 13 163/102 94 L 11/15/16 23:54 82 20 94 L 11/15/16 20:07 85 18 93 L 11/15/16 20:05 97.9 F 89 20 162/88 93 L 11/15/16 20:00 20 11/15/16 16:09 94 L 11/15/16 16:08 88 L 11/15/16 16:00 97.9 F 95 H 20 139/88 94 L 11/15/16 15:15 88 18 95 11/15/16 11:45 20 11/15/16 11:29 98.2 F 96 H 20 148/97 93 L 11/15/16 10:33 65 20 94 L Oxygen-Last 24 hours O2 Percentage 2 Liters = 28% O2 Percentage 2 Liters = 28% O2 Percentage 2 Liters = 28% O2 Percentage 2 Liters = 28% Pain Assessment - Last Documented Pain Intensity 0 Pain Scale Used 0-10 Pain Scale Intake and Output: Intake & Output 11/13/16 11/14/16 11/15/16 11/16/16 11:59 11:59 11:59 11:59 Intake Total 5081 2662 Balance 5081 2662 Weight 87.135 kg Lab Results: Accuchecks Date 11/15/16 Date 11/15/16 Time 16:30 Time 11:20 Accucheck Value: 218 Accucheck Value: 218 Lab Results-Last 24 Hours 11/15/16 11/16/16 11/16/16 Range/Units 08:50 05:12 05:12 WBC 5.7 (4.0-10.5) K/mm3 RBC 3.57 L (4.1-5.6) M/mm3 Hgb 12.8 (12.5-18.0) gm/dl Hct 39.5 L (42-50) % MCV 110.6 H (78-100) fl MCH 35.8 H (26-32) pg MCHC 32.4 (32-36) g/dl RDW 11.6 (11.5-14.0) % Plt Count 205 (150-450) K/mm3 MPV 11.5 H (6-9.5) fl Sodium 142 143 (136-145) mEq/L Potassium 3.2 L 3.4 L (3.5-5.1) mEq/L Chloride 108 H 107 (98-107) mEq/L Carbon Dioxide 25.5 31.7 (21-32) mEq/L Anion Gap 12.1 8.0 (5-15) MEQ/L BUN 10 7 L (9-20) mg/dL Creatinine 0.87 0.82 (0.55-1.30) mg/dl Estimated GFR > 60 > 60 ML/MIN Glucose 193 H 219 H (70-110) MG/DL Calcium 7.6 L 7.9 L (8.5-10.1) mg/dL Magnesium 1.2 L 1.5 L (1.8-2.4) mg/dL Multi-Disciplinary Progress Notes: Multi-Disciplinary Progress Notes 11/15/16 09:10 (created 11/15/16 12:10) Case Management Note by Bina Landon CONTINUES TO PLAN TO RETURN HOME WITH ON DISCHARGE. DECLINED NEEDS AT PRESENT. WILL CONTINUE TO FOLLOW FOR ALL NEEDS. Initialized on 11/15/16 12:10 - END OF NOTE Assessment/Plan (1) COPD exacerbation Current Visit: Yes Status: Acute Assessment & Plan: continue prednisone, nebs antibiotics sputum culture is positive but the I D and sensitivity is pending still on lovenox ppx with ppi on the steroid replace the magnesium again today and the potassium increase and recheck in am second dose of iv lasix to improve diuresis today librium was weaned to tid from qid yesterday still with severe symptoms and more anxiety today seizure last week continue at tid for now add clonidine tid for the elevated bp continue the gabapentin tid to help with the etoh withdrawal as well Code(s): J44.1 - CHRONIC OBSTRUCTIVE PULMONARY DISEASE W (ACUTE) EXACERBATION (2) Alcohol withdrawal Current Visit: Yes Status: Acute Code(s): F10.239 - ALCOHOL DEPENDENCE WITH WITHDRAWAL, UNSPECIFIED (3) Acute hypoxemic respiratory failure Current Visit: Yes Status: Acute Code(s): J96.01 - ACUTE RESPIRATORY FAILURE WITH HYPOXIA (4) Hypomagnesemia Current Visit: Yes Status: Acute Code(s): E83.42 - HYPOMAGNESEMIA (5) Hypokalemia Current Visit: Yes Status: Acute Code(s): E87.6 - HYPOKALEMIA
[2016-11-16] MEDS: Klor Con 10 MEQ PO SCH ×3 (08:22→22:01)
[2016-11-16] MEDS: NORCO 5/325 MG PO PRN ×3 (09:41→19:42)
[2016-11-16] MEDS ORDERED: Lasix 20 MG/2 ML IV ONE (10:00)
[2016-11-16] MEDS: ROCEPHIN 1 Gm-D5w 50 ml Bag** 1 G/50 ML IVPB IV SCH (11:15)
[2016-11-16] MEDS: NICODERM CQ 14 MG TOP SCH (20:35)
[2016-11-16] MEDS: Zithromax 500 MG/ 250 ML NaCl Premix 500 MG/250 ML IVPB IV SCH (22:02)
[2016-11-17] MEDS: NORCO 5/325 MG PO PRN ×5 (02:07→21:26)
[2016-11-17] MEDS: Robitussin AC Syrup Unit Dose Cup PO PRN (02:42)
[2016-11-17] MEDS: DUONEB 0.5-3 MG/3 ml Neb IH SCH ×6 (03:57→23:27)
[2016-11-17] MEDS: Tussionex Pennkinetic Susp PO PRN (05:24)
[2016-11-17 05:26] LABS: Mean Cell Volume 110.2 fl (78-100); Mean Platelet Volume 11.5 fl (6-9.5); Platelet Count 217 K/mm3 (150-450); Red Blood Count 3.53 M/mm3 (4.1-5.6); Red Cell Distribution Width 11.6 % (11.5-14.0); White Blood Count 6.7 K/mm3 (4.0-10.5)
[2016-11-17 05:27] LABS: Mean Corpuscular Hemoglobin 35.9 pg (26-32)
[2016-11-17 05:45] LABS: ANION GAP 8.9 MEQ/L (5-15); BLOOD UREA NITROGEN 10 mg/dL (9-20); CHLORIDE 106 mEq/L (98-107); Glucose 134 MG/DL (70-110); MAGNESIUM 1.7 mg/dL (1.8-2.4); SODIUM 141 mEq/L (136-145)
--- NOTE | 2016-11-17 08:22 | PCM.NOTE ---
Date and Time: 11/17/16820 Subjective Assessment: still having the sharp stabbing pain with coughing or deep breathing still feeling short of breath and having productive sputum no hemoptysis. no vomiitign tolerating po well no abdominal pain. no change in pain with eating Objective Exam General Appearance: no apparent distress, thin Neurologic Exam: alert, other (anxious with tremors bilateral hands improving) Skin Exam: warm, dry, No jaundice Eye Exam: pale conjunctivae Ears, Nose, Throat Exam: moist mucous membranes Neck Exam: normal inspection, non-tender, supple Respiratory Exam: crackles/rales (improving still present in the bilateral bases with improved wheezing), rhonchi, wheezing Cardiovascular Exam: regular rate/rhythm, normal heart sounds, No murmur Gastrointestinal/Abdomen Exam: soft, normal bowel sounds, distention (mild), No tenderness, No guarding, No rebound Extremity Exam: No calf tenderness, No pedal edema OBJECTIVE DATA Vital Signs: Vital Signs - 24 hr Temp Pulse Resp BP Pulse Ox 11/17/16 07:57 98.5 F 84 22 159/99 92 L 11/17/16 07:11 89 18 98 11/17/16 04:05 98.0 F 93 H 20 148/92 95 11/17/16 04:00 20 11/17/16 03:58 90 22 95 11/17/16 00:00 98.0 F 89 24 141/95 97 11/16/16 23:33 92 H 22 95 11/16/16 20:00 97.8 F 87 22 141/87 93 L 11/16/16 19:34 87 22 98 11/16/16 16:00 98 F 112 H 22 136/93 93 L 11/16/16 14:49 89 22 95 11/16/16 12:00 98.1 F 104 H 24 137/89 92 L 11/16/16 10:57 91 H 20 95 Oxygen-Last 24 hours O2 Percentage 2 Liters = 28% O2 Percentage 2 Liters = 28% O2 Percentage 2 Liters = 28% O2 Percentage 2 Liters = 28% O2 Percentage 2 Liters = 28% Pain Assessment - Last Documented Pain Intensity 8 Pain Scale Used 0-10 Pain Scale Intake and Output: Intake & Output 11/14/16 11/15/16 11/16/16 11/17/16 11:59 11:59 11:59 11:59 Intake Total 1774 8148 1999 Balance 5081 0619 1999 Weight 87.135 kg 88.178 kg 90.718 kg Lab Results: Accuchecks Date 11/16/16 Date 11/16/16 Date 11/16/16 Time 22:00 Time 16:30 Time 11:30 Accucheck Value: 413 Accucheck Value: 285 Accucheck Value: 247 Lab Results-Last 24 Hours 11/17/16 11/17/16 Range/Units 05:05 05:05 WBC 6.7 (4.0-10.5) K/mm3 RBC 3.53 L (4.1-5.6) M/mm3 Hgb 12.7 (12.5-18.0) gm/dl Hct 38.9 L (42-50) % MCV 110.2 H (78-100) fl MCH 35.9 H (26-32) pg MCHC 32.6 (32-36) g/dl RDW 11.6 (11.5-14.0) % Plt Count 217 (150-450) K/mm3 MPV 11.5 H (6-9.5) fl Sodium 141 (136-145) mEq/L Potassium 4.0 (3.5-5.1) mEq/L Chloride 106 (98-107) mEq/L Carbon Dioxide 30.0 (21-32) mEq/L Anion Gap 8.9 (5-15) MEQ/L BUN 10 (9-20) mg/dL Creatinine 0.77 (0.55-1.30) mg/dl Estimated GFR > 60 ML/MIN Glucose 134 H (70-110) MG/DL Calcium 8.1 L (8.5-10.1) mg/dL Magnesium 1.7 L (1.8-2.4) mg/dL Radiology Exams: Radiology Procedures Category Date Time Status CHEST 2 VIEWS (PA AND LAT) Routine Exams 11/17/16 Ordered Assessment/Plan (1) COPD exacerbation Current Visit: Yes Status: Acute Assessment & Plan: sputum + for H. influenza continue rocephin has had azithromycin 500 mg daily will stop that today continue prednisone and nebs oxygen wean as tolerated with persistent pain and prolonged symptoms repeat cxr Code(s): J44.1 - CHRONIC OBSTRUCTIVE PULMONARY DISEASE W (ACUTE) EXACERBATION (2) Alcohol withdrawal Current Visit: Yes Status: Acute Assessment & Plan: improving tremors on librium was weaned to tid continue gabapentin as well titrate the clonidine as well with the htn Code(s): F10.239 - ALCOHOL DEPENDENCE WITH WITHDRAWAL, UNSPECIFIED (3) Acute hypoxemic respiratory failure Current Visit: Yes Status: Acute Code(s): J96.01 - ACUTE RESPIRATORY FAILURE WITH HYPOXIA (4) Hypomagnesemia Current Visit: Yes Status: Acute Assessment & Plan: replace Code(s): E83.42 - HYPOMAGNESEMIA (5) Hypokalemia Current Visit: Yes Status: Acute Assessment & Plan: improved Code(s): E87.6 - HYPOKALEMIA
[2016-11-17] MEDS: Magnesium 1 Gm / 100 Ml D5W*** 100 ML IV SCH ×2 (08:28→09:33)
[2016-11-17] MEDS: Catapres 0.1 MG PO SCH ×3 (08:30→20:53)
[2016-11-17] MEDS: NEURONTIN 300 MG PO SCH ×3 (08:30→20:53)
[2016-11-17] MEDS: ENOXAPARIN SODIUM SQ SCH (08:30)
[2016-11-17] MEDS: Klor Con 10 MEQ PO SCH ×3 (08:30→20:54)
[2016-11-17] MEDS: Protonix 40MG Tablet PO SCH (08:31)
[2016-11-17] MEDS: THERAGRAN MULTIVITAMIN PO SCH (08:31)
[2016-11-17] MEDS: LIBRIUM 25 MG PO SCH ×3 (08:31→20:54)
[2016-11-17] MEDS: DELTASONE 20 MG PO SCH (08:31)
--- NOTE | 2016-11-17 09:19 | XRAY ---
Indication: Short of breath. Comparison: November 13, 2016. PA/lateral chest again hyperinflated with tiny calcified granulomas. New subtle right lower lobe infiltrate/atelectasis. Remaining heart and lungs unremarkable.
[2016-11-17] MEDS: ROCEPHIN 1 Gm-D5w 50 ml Bag** 1 G/50 ML IVPB IV SCH (10:51)
[2016-11-17] MEDS: NovoLIN R SQ PRN ×2 (11:56→20:55)
[2016-11-17] MEDS: NICODERM CQ 14 MG TOP SCH (20:54)
[2016-11-18] MEDS: NORCO 5/325 MG PO PRN ×6 (01:32→21:53)
[2016-11-18] MEDS: Tussionex Pennkinetic Susp PO PRN ×2 (01:36→14:52)
[2016-11-18] MEDS: DUONEB 0.5-3 MG/3 ml Neb IH SCH ×6 (03:08→23:02)
[2016-11-18] MEDS ORDERED: Lasix 40 MG/4 ML IV ONE (05:06)
[2016-11-18 05:58] LABS: ANION GAP 8.6 MEQ/L (5-15); BLOOD UREA NITROGEN 10 mg/dL (9-20); CHLORIDE 104 mEq/L (98-107); Carbon Dioxide 30.5 mEq/L (21-32); MAGNESIUM 1.6 mg/dL (1.8-2.4); Potassium 4.8 mEq/L (3.5-5.1); SODIUM 138 mEq/L (136-145)
[2016-11-18 06:11] LABS: Glucose 152 MG/DL (70-110)
[2016-11-18] MEDS: ROCEPHIN 1 Gm-D5w 50 ml Bag** 1 G/50 ML IVPB IV SCH (07:56)
[2016-11-18] MEDS: Protonix 40MG Tablet PO SCH (09:24)
[2016-11-18] MEDS: DELTASONE 20 MG PO SCH (09:24)
[2016-11-18] MEDS: Catapres 0.1 MG PO SCH ×3 (09:24→20:56)
[2016-11-18] MEDS: NEURONTIN 300 MG PO SCH ×3 (09:24→20:56)
[2016-11-18] MEDS: THERAGRAN MULTIVITAMIN PO SCH (09:24)
[2016-11-18] MEDS: Klor Con 10 MEQ PO SCH ×3 (09:24→20:55)
[2016-11-18] MEDS: LIBRIUM 25 MG PO SCH ×2 (09:25→20:56)
[2016-11-18] MEDS: Magnesium 1 Gm / 100 Ml D5W*** 100 ML IV SCH ×2 (09:30→09:42)
[2016-11-18] MEDS: ENOXAPARIN SODIUM SQ SCH (09:30)
--- NOTE | 2016-11-18 11:07 | PCM.NOTE ---
Date and Time: 11/18/16 1100 Subjective Assessment: was very weak and short of breath overnight more distention in his abdomen with persistent cough with copious production of turpin yellow sputum. tremors are slightly improving. Worsening shortness of breath overnight imroved breathing slightly after the iv lasix early this am Objective Exam General Appearance: no apparent distress, alert Neurologic Exam: alert, oriented x 3, cooperative, other (tremors improved) Skin Exam: normal color, warm, dry, No rash, No jaundice Eye Exam: PERRL, EOMI, eyes nml inspection Ears, Nose, Throat Exam: moist mucous membranes Neck Exam: normal inspection, non-tender, supple, full range of motion Respiratory Exam: respiratory distress, crackles/rales, rhonchi, wheezing, other (wet rhonchi bibasilar worse) Cardiovascular Exam: regular rate/rhythm, normal heart sounds Gastrointestinal/Abdomen Exam: soft, normal bowel sounds, distention, No tenderness, No mass Extremity Exam: normal inspection, normal range of motion, No calf tenderness Back Exam: normal inspection, normal range of motion, No CVA tenderness, No vertebral tenderness Male Genitalia Exam: deferred Rectal Exam: deferred OBJECTIVE DATA Vital Signs: Vital Signs - 24 hr Temp Pulse Resp BP Pulse Ox 11/18/16 07:59 18 11/18/16 07:11 96 H 18 93 L 11/18/16 07:10 99.3 F 96 H 18 124/92 93 L 11/18/16 04:00 98.5 F 97 H 24 181/107 96 11/18/16 03:00 91 H 20 96 11/18/16 00:00 26 H 11/17/16 23:39 98.2 F 94 H 26 H 177/98 92 L 11/17/16 23:29 96 H 20 95 11/17/16 20:00 24 11/17/16 19:42 98.2 F 98 H 24 162/99 92 L 11/17/16 18:19 71 18 95 11/17/16 16:12 72 22 98 11/17/16 16:00 98.6 F 87 22 178/90 92 L 11/17/16 11:51 22 11/17/16 11:34 98.5 F 90 22 158/108 94 L 11/17/16 11:05 80 18 96 Oxygen-Last 24 hours O2 Percentage 2 Liters = 28% O2 Percentage 2 Liters = 28% O2 Percentage 2 Liters = 28% O2 Percentage 2 Liters = 28% O2 Percentage 2 Liters = 28% Pain Assessment - Last Documented Pain Intensity 8 Pain Scale Used 0-10 Pain Scale Intake and Output: Intake & Output 11/15/16 11/16/16 11/17/16 11/18/16 11:59 11:59 11:59 11:59 Intake Total 5081 2662 1999 391 Output Total 1950 Balance 5081 2662 1999 1959 Weight 87.135 kg 88.178 kg 90.718 kg 87.997 kg Lab Results: Accuchecks Date 11/18/16 Date 11/17/16 Date 11/17/16 Date 11/17/16 Time 07:30 Time 21:00 Time 16:30 Time 11:30 Accucheck Value: 152 Accucheck Value: 301 Accucheck Value: 236 Accucheck Value: 187 Lab Results-Last 24 Hours 11/18/16 Range/Units 05:25 Sodium 138 (136-145) mEq/L Potassium 4.8 (3.5-5.1) mEq/L Chloride 104 (98-107) mEq/L Carbon Dioxide 30.5 (21-32) mEq/L Anion Gap 8.6 (5-15) MEQ/L BUN 10 (9-20) mg/dL Creatinine 0.93 (0.55-1.30) mg/dl Estimated GFR > 60 ML/MIN Glucose 152 H (70-110) MG/DL Calcium 8.9 (8.5-10.1) mg/dL Magnesium 1.6 L (1.8-2.4) mg/dL Radiology Exams: Radiology Procedures Category Date Time Status CHEST 2 VIEWS (PA AND LAT) Routine Exams 11/17/16 Completed Assessment/Plan (1) COPD exacerbation Current Visit: Yes Status: Acute Assessment & Plan: he has sputum with haemophilis and has had 5 days of rocephin and 3 days of 500 mg azithromycin without significant improvement will switch over to augmentin with his history of alcohol use for possible some anaerobic coverage as well as the haemophilis continue the prednisone and nebs improved with the lasix 40 iv repeat additional 20 iv today repeat am labs work on increasing ambulation Code(s): J44.1 - CHRONIC OBSTRUCTIVE PULMONARY DISEASE W (ACUTE) EXACERBATION (2) Alcohol withdrawal Current Visit: Yes Status: Acute Assessment & Plan: improving wean the librium to bid Code(s): F10.239 - ALCOHOL DEPENDENCE WITH WITHDRAWAL, UNSPECIFIED (3) Acute hypoxemic respiratory failure Current Visit: Yes Status: Acute Code(s): J96.01 - ACUTE RESPIRATORY FAILURE WITH HYPOXIA (4) Hypomagnesemia Current Visit: Yes Status: Acute Code(s): E83.42 - HYPOMAGNESEMIA (5) Hypokalemia Current Visit: Yes Status: Acute Code(s): E87.6 - HYPOKALEMIA
[2016-11-18] MEDS: NovoLIN R SQ PRN ×3 (11:53→20:59)
[2016-11-18] MEDS: Augmentin 875-125 Tablet PO SCH (11:53)
[2016-11-18] MEDS: NICODERM CQ 14 MG TOP SCH (20:57)
[2016-11-18] MEDS ORDERED: Vibramycin 100 MG PO SCH (22:00)
[2016-11-19] MEDS: Augmentin 875-125 Tablet PO SCH ×3 (01:21→21:42)
[2016-11-19] MEDS: NORCO 5/325 MG PO PRN ×5 (02:28→21:39)
[2016-11-19] MEDS: Tussionex Pennkinetic Susp PO PRN ×2 (02:34→17:38)
[2016-11-19] MEDS: DUONEB 0.5-3 MG/3 ml Neb IH SCH ×6 (03:01→23:15)
[2016-11-19 05:49] LABS: Mean Cell Volume 110.6 fl (78-100); Mean Platelet Volume 11.6 fl (6-9.5); Platelet Count 255 K/mm3 (150-450); Red Blood Count 3.67 M/mm3 (4.1-5.6)
[2016-11-19 05:54] LABS: Mean Corpuscular Hemoglobin 35.6 pg (26-32)
[2016-11-19 06:08] LABS: ALBUMIN 2.7 g/dL (3.4-5.0); ALKALINE PHOSPHATASE 84 U/L (46-116); ANION GAP 12.8 MEQ/L (5-15); BLOOD UREA NITROGEN 13 mg/dL (9-20); CHLORIDE 99 mEq/L (98-107); Carbon Dioxide 30.5 mEq/L (21-32); Glucose 226 MG/DL (70-110); LIPASE 130 U/L (73-393); MAGNESIUM 1.5 mg/dL (1.8-2.4); Potassium 5.2 mEq/L (3.5-5.1); SGOT/AST 36 U/L (15-37); SGPT/ALT 57 U/L (12-78); SODIUM 137 mEq/L (136-145); Total Protein 5.9 gm/dL (6.4-8.2)
[2016-11-19] MEDS: Robitussin AC Syrup Unit Dose Cup PO PRN ×4 (06:38→20:09)
[2016-11-19] MEDS: DELTASONE 20 MG PO SCH (10:41)
[2016-11-19] MEDS: THERAGRAN MULTIVITAMIN PO SCH (10:41)
[2016-11-19] MEDS: LIBRIUM 25 MG PO SCH ×2 (10:41→21:40)
[2016-11-19] MEDS: ENOXAPARIN SODIUM SQ SCH (10:41)
[2016-11-19] MEDS: NEURONTIN 300 MG PO SCH ×3 (10:41→21:39)
[2016-11-19] MEDS: Protonix 40MG Tablet PO SCH (10:42)
[2016-11-19] MEDS: Klor Con 10 MEQ PO SCH ×3 (10:42→21:39)
[2016-11-19] MEDS: Catapres 0.1 MG PO SCH ×3 (10:43→21:41)
[2016-11-19] MEDS: MAG-OX 400 PO SCH ×3 (10:44→21:41)
[2016-11-19] MEDS ORDERED: Lasix 20 MG/2 ML IV ONE ×2 (10:58→12:00)
[2016-11-19] MEDS ORDERED: solu-MEDROL 125 MG IV ONE (11:33)
[2016-11-19] MEDS: NovoLIN R SQ PRN ×2 (11:44→17:28)
[2016-11-19] MEDS: ELIQUIS PO SCH ×2 (12:42→21:40)
--- NOTE | 2016-11-19 15:38 | PCM.NOTE ---
Date and Time: 11/19/16 1532 Subjective Assessment: feeling more pains in the right chest now and substernal area more severe making difficult to take deep breaths feeling more short of breath still having copious productive sputum no fevers. He has not been out of bed much has not been walking regular he has no nausea or vomiting no abdominal pains. No swelling urinating well. tremors continue to improve. Objective Exam Neurologic Exam: alert, oriented x 3, cooperative, other (mild bilateral hand tremors) Eye Exam: PERRL, No scleral icterus Ears, Nose, Throat Exam: moist mucous membranes Neck Exam: normal inspection, non-tender, supple Respiratory Exam: prolonged expirations, crackles/rales, rhonchi, wheezing ( predomineately diffuse expeiratory wheezing with some fine rales at bases and diffuse mild rhonchi), No chest tenderness Cardiovascular Exam: tachycardia, No murmur Gastrointestinal/Abdomen Exam: soft, normal bowel sounds, distention (mild), No tenderness, No guarding, No ecchymosis, No rebound Extremity Exam: normal inspection, No calf tenderness OBJECTIVE DATA Vital Signs: Vital Signs - 24 hr Temp Pulse Resp BP Pulse Ox 11/19/16 14:44 91 H 18 92 L 11/19/16 11:44 98.1 F 103 H 18 110/65 92 L 11/19/16 10:49 93 H 18 95 11/19/16 08:00 18 11/19/16 07:46 98.3 F 91 H 18 172/99 92 L 11/19/16 06:47 92 H 18 93 L 11/19/16 04:00 98.5 F 102 H 20 125/94 90 L 11/19/16 03:01 98 H 23 93 L 11/19/16 00:00 21 11/18/16 23:48 98.0 F 102 H 21 149/105 94 L 11/18/16 23:02 95 H 20 96 11/18/16 20:00 98.1 F 92 H 20 134/89 90 L 11/18/16 19:33 89 19 92 L 11/18/16 16:00 98.2 F 97 H 18 139/83 90 L Oxygen-Last 24 hours O2 Percentage 2 Liters = 28% O2 Percentage 2 Liters = 28% O2 Percentage 2 Liters = 28% O2 Percentage 2 Liters = 28% O2 Percentage 2 Liters = 28% Pain Assessment - Last Documented Pain Intensity 4 Pain Scale Used 0-10 Pain Scale Intake and Output: Intake & Output 11/17/16 11/18/16 11/19/16 11/20/16 11:59 11:59 11:59 11:59 Intake Total 19995 1880 Output Total 6803 402 1200 Balance 1999 1960 -2145 -1200 Weight 90.718 kg 87.997 kg 85.865 kg Lab Results: Accuchecks Date 11/18/16 Date 11/18/16 Time 21:14 Time 16:30 Accucheck Value: 148 Accucheck Value: 225 Accucheck Value: 255 Lab Results-Last 24 Hours 11/19/16 11/19/16 Range/Units 05:30 05:30 WBC 12.0 H (4.0-10.5) K/mm3 RBC 3.67 L (4.1-5.6) M/mm3 Hgb 13.1 (12.5-18.0) gm/dl Hct 40.6 L (42-50) % MCV 110.6 H (78-100) fl MCH 35.6 H (26-32) pg MCHC 32.3 (32-36) g/dl RDW 12.0 (11.5-14.0) % Plt Count 255 (150-450) K/mm3 MPV 11.6 H (6-9.5) fl Sodium 137 (136-145) mEq/L Potassium 5.2 H (3.5-5.1) mEq/L Chloride 99 (98-107) mEq/L Carbon Dioxide 30.5 (21-32) mEq/L Anion Gap 12.8 (5-15) MEQ/L BUN 13 (9-20) mg/dL Creatinine 0.98 (0.55-1.30) mg/dl Estimated GFR > 60 ML/MIN Glucose 226 H (70-110) MG/DL Calcium 9.2 (8.5-10.1) mg/dL Magnesium 1.5 L (1.8-2.4) mg/dL Total Bilirubin 0.30 (0.2-1.0) mg/dL AST 36 (15-37) U/L ALT 57 (12-78) U/L Alkaline Phosphatase 84 (46-116) U/L Serum Total Protein 5.9 L (6.4-8.2) gm/dL Albumin 2.7 L (3.4-5.0) g/dL Lipase 130 (73-393) U/L Radiology Exams: Radiology Procedures Category Date Time Status CHEST WITH CONTRAST [CT] Stat Exams 11/19/16 09:21 Taken Assessment/Plan (1) COPD exacerbation Current Visit: Yes Status: Acute Assessment & Plan: with the persistent and worsening chest pain and the lack of clinical improvement in the sputum production and overall shortness of breath CT PE protocol was completed. He has been on lovenox ppx dose and wearing paige hose since arrival. a very small non occluding PE was found on the left with mild effusion and atelectasis at the bases will stop lovenox and start eliquis therapeutic dose discussed risk of bleeding with the patient give another dose of iv lasix with the pleurisy pain give an additional large dose of iv solumedrol today to his daily prednisone continue the augmentin for now. if showing some improvement hopeful for home tomorrow on po medications. Code(s): J44.1 - CHRONIC OBSTRUCTIVE PULMONARY DISEASE W (ACUTE) EXACERBATION (2) Alcohol withdrawal Current Visit: Yes Status: Acute Code(s): F10.239 - ALCOHOL DEPENDENCE WITH WITHDRAWAL, UNSPECIFIED (3) Acute hypoxemic respiratory failure Current Visit: Yes Status: Acute Code(s): J96.01 - ACUTE RESPIRATORY FAILURE WITH HYPOXIA (4) Hypomagnesemia Current Visit: Yes Status: Acute Code(s): E83.42 - HYPOMAGNESEMIA (5) Hypokalemia Current Visit: Yes Status: Acute Code(s): E87.6 - HYPOKALEMIA (6) Pulmonary embolism Current Visit: Yes Status: Acute Qualifiers: Pulmonary embolism type: other Chronicity: acute Acute cor pulmonale presence: without acute cor pulmonale Qualified Code(s): I26.99 - Other pulmonary embolism without acute cor pulmonale Code(s): I26.99 - OTHER PULMONARY EMBOLISM WITHOUT ACUTE COR PULMONALE
--- NOTE | 2016-11-19 20:02 | XRAY ---
Indication: Chest pain. Multiple contiguous axial images obtained through the chest using 80 cc Isovue 370 contrast and PE protocol. Comparison: None There is suboptimal opacification of the pulmonary arteries. Tiny nonoccluding pulmonary embolus seen in the left lower lobe anterior segmental branch. Heart is not enlarged. Aorta is normal in course and caliber. Left hilar calcified nodes. No pathologic mediastinal/hilar lymphadenopathy. Examination of lung parenchyma demonstrates bilateral dependent atelectasis, bibasilar fibrosis/scarring, and tiny right effusion. Bony thorax intact with mild degenerative changes throughout the spine. Limited upper abdomen demonstrates fatty liver and 14 cm splenomegaly. Impression: 1. Tiny nonoccluding left lower lobe pulmonary embolus. No distal infarct. 2. Bilateral atelectasis and fibrosis/scarring. Tiny right effusion. 3. Incidental fatty liver and splenomegaly. CTDI 20.00
[2016-11-19] MEDS: NICODERM CQ 14 MG TOP SCH (21:38)
[2016-11-20] MEDS: Robitussin AC Syrup Unit Dose Cup PO PRN ×2 (01:40→08:06)
[2016-11-20] MEDS: DUONEB 0.5-3 MG/3 ml Neb IH SCH ×3 (03:13→10:46)
[2016-11-20] MEDS: NORCO 5/325 MG PO PRN ×2 (03:19→07:40)
[2016-11-20] MEDS: Tussionex Pennkinetic Susp PO PRN (06:03)
[2016-11-20 07:17] VITALS: BP 161/101
[2016-11-20 07:38] VITALS: O2SAT 94
[2016-11-20] MEDS: NovoLIN R SQ PRN (08:08)
--- NOTE | 2016-11-20 08:16 | PCM.DCORD ---
- Discharge Discharge Date: 11/20/16 Disposition: Home, Self-Care Condition: Fair Prescriptions: New Amox Tr/Potass Clav. 875 mg [Augmentin 875-125 Tablet] 875 mg PO Q12H # 10 tablet Fluticasone/Vilanterol [Breo Ellipta 200-25 Mcg INH] 1 each IH DAILY #1 blst.w.dev Clonidine HCl 0.2 mg PO TID #90 tablet Prednisone 20 mg [Deltasone 20 mg] 40 mg PO DAILY #13 tablet Apixaban [Eliquis] 5 mg PO BID #60 tablet Gabapentin 300 mg PO TID #90 capsule Magnesium Oxide 400 mg [Mag-Ox 400] 800 mg PO BID #120 tablet Omeprazole 20 MG [Prilosec 20 mg] 20 mg PO DAILY #30 capsule. Tramadol HCl 50 mg PO Q4H PRN #18 tablet PRN Reason: Pain Continue Potassium Chloride [K-Dur] 10 meq PO BID #60 tab.er.prt Albuterol Common Canister [Proventil Common Canister] 1 puff IH QID PRN Changed Chlordiazepoxide HCl 25 mg [Librium 25 mg] 25 mg PO DAILY #9 capsule Instructions: Chronic Obstructive Pulmonary Disease, Pneumonia -- Adult Additional Instructions: followup with your Dr to recheck blood pressure Follow up with: AMBREEN PADILLA [Primary Care Provider] - 11/22/16 3:00 pm Forms: Patient Portal Information
[2016-11-20] MEDS ORDERED: DIFLUCAN PO ONE (09:00)
[2016-11-20] MEDS: THERAGRAN MULTIVITAMIN PO SCH (09:06)
[2016-11-20] MEDS: Catapres 0.1 MG PO SCH (09:06)
[2016-11-20] MEDS: MAG-OX 400 PO SCH (09:06)
[2016-11-20] MEDS: ELIQUIS PO SCH (09:06)
[2016-11-20] MEDS: NEURONTIN 300 MG PO SCH (09:06)
[2016-11-20] MEDS: DELTASONE 20 MG PO SCH (09:06)
[2016-11-20] MEDS: LIBRIUM 25 MG PO SCH (09:06)
[2016-11-20] MEDS: Protonix 40MG Tablet PO SCH (09:06)
[2016-11-20] MEDS: Klor Con 10 MEQ PO SCH (09:06)
[2016-11-20 10:48] VITALS: PULSE 80
--- NOTE | 2016-11-20 18:22 | PCM.DS ---
Discharge Summary Date of Admission: 11/14/16 08:13 Date of Discharge: 11/20/16 Admitting Physician: ROSALVA NIETO Primary Care Provider: AMBREEN PADILLA Allergies Allergies No Known Drug Allergies Allergy (Verified 11/13/16 03:08) Hospital Summary - Hospital Course Hospital Course: Mr. Palma had a complicated coarse as he presented with alcohol withdraw and copd exacerbation with pneumonia. The sputum culture grew H. influenza and he was on azithromycin and ceftriaxone and iv solumedrol and nebs but had difficulty with improvement with this. He was slowly weaned on his librium and his steroid to prednisone po. He did have previous hx of DT seizure the week prior so with the minimal improvement after 5 days of azithromycin and ceftriaxone he was changed to augmentin to help cover anaerobes and CT of the chest was done that showed a very small nonocculding left lower lobe emboli. He had been on lovenox since arrival at ppx dosing and paige stockings as well and he was placed on therapeutic epiquis with the results of the CT. He did have difficulty with fluid overload that responded well to lasix after the initial fluid resuscitation. He continued to cough up copious sputum and have severe pleuritic chest pain with coughing anterior sternum and right side of chest. He had the severe electrolyte imbalance replaced with need for daily iv mag and persistent K replacement. He was eating well and beginning to ambulate in the halls and outside and requesting to go home on day of discharge. He has home oxygen set up. he will continue steroids, eliquis and antibiotic as outpatient with nebs and start breo daily as well wean librium continue gabapentin short coarse of tramadol with his severe chest pains with pleurisy and inability to use nsaid with the steroid and anticoagulant. continue PPI with steroid and anticoagulant and hx of alcoholism. Continued clonidine for his withdrawal symptoms and htn continue the incentive spirometry close outpatient follow up needed and ongoing treatment for alcoholism needed as well. If not improving may require pulm referral for possible bronchoscopy. - Vitals & Intake/Output Vital Signs: Vital Signs Temperature 98.7 F 11/20/16 07:16 Pulse Rate 80 11/20/16 10:46 Respiratory Rate 16 11/20/16 10:46 Blood Pressure 161/101 11/20/16 07:16 O2 Sat by Pulse Oximetry 94 L 11/20/16 07:20 Oxygen-Last Documented O2 Percentage 2 Liters = 28% Intake & Output: Intake & Output 11/18/16 11/19/16 11/20/16 11/21/16 11:59 11:59 11:59 11:59 Intake Total 3910 1880 1840 Output Total 4915 6255 8712 Balance 0953 -9992 -3114 Weight 87.997 kg 85.865 kg 84.822 kg - Lab Result Diagrams: 11/19/16 05:30 11/19/16 05:30 Lab Results-Last 24 Hrs: Accuchecks Date 11/20/16 Date 11/19/16 Time 07:30 Time 22:00 Accucheck Value: 160 Accucheck Value: 312 Micro Results-Entire Visit: Accuchecks Date 11/20/16 Date 11/19/16 Time 07:30 Time 22:00 Accucheck Value: 160 Accucheck Value: 312 - Radiology Exams Ordered Rad Exams-Entire Visit: Radiology Procedures Category Date Time Status CHEST WITH CONTRAST [CT] Stat Exams 11/19/16 09:21 Completed - Procedures and Test Procedures and Tests throughout Hospitalization: Therapy Orders & Screens 11/17/16 18:19 Incentive Spirometry Assessmen UD Comment: after breathing treatments while awake Diagnosis: EXAC COPD, ETOH WITHDRAWAL, PNEUMONIA 11/19/16 02:56 Flutter Therapy UD Comment: PER R.T. PROTOCOL FOR SELF-DIRECTED CARE Diagnosis: EXAC COPD, ETOH WITHDRAWAL, PNEUMONIA 11/19/16 09:15 EKG ROUTINE Comment: Diagnosis: EXAC COPD, ETOH WITHDRAWAL, PNEUMONIA Discharge Exam General Appearance: no apparent distress, alert Neurologic Exam: alert, oriented x 3, cooperative, normal mood/affect, nml cerebellar function, sensation nml, No motor deficits Skin Exam: normal color, warm, dry Eye Exam: PERRL, EOMI, eyes nml inspection, No scleral icterus, No pale conjunctivae Ears, Nose, Throat Exam: normal ENT inspection, pharynx normal, moist mucous membranes Neck Exam: normal inspection, non-tender, supple, full range of motion Respiratory Exam: crackles/rales (bibasilar), rhonchi, wheezing (diffuse), No respiratory distress Cardiovascular Exam: regular rate/rhythm, normal heart sounds Gastrointestinal/Abdomen Exam: soft, distention, No tenderness, No mass Extremity Exam: normal inspection, normal range of motion Back Exam: normal inspection, normal range of motion, No CVA tenderness, No vertebral tenderness Male Genitalia Exam: deferred Rectal Exam: deferred Final Diagnosis/Problem List - Final Discharge Diagnosis/Problem (1) COPD exacerbation Status: Acute (2) Alcohol withdrawal Status: Acute (3) Acute hypoxemic respiratory failure Status: Acute (4) Hypomagnesemia Status: Acute (5) Hypokalemia Status: Acute (6) Pulmonary embolism Status: Acute - Discharge Discharge Date: 11/20/16 Disposition: Home, Self-Care Condition: Fair Prescriptions: New Amox Tr/Potass Clav. 875 mg [Augmentin 875-125 Tablet] 875 mg PO Q12H # 10 tablet Fluticasone/Vilanterol [Breo Ellipta 200-25 Mcg INH] 1 each IH DAILY #1 blst.w.dev Clonidine HCl 0.2 mg PO TID #90 tablet Prednisone 20 mg [Deltasone 20 mg] 40 mg PO DAILY #13 tablet Apixaban [Eliquis] 5 mg PO BID #60 tablet Gabapentin 300 mg PO TID #90 capsule Magnesium Oxide 400 mg [Mag-Ox 400] 800 mg PO BID #120 tablet Omeprazole 20 MG [Prilosec 20 mg] 20 mg PO DAILY #30 capsule. Tramadol HCl 50 mg PO Q4H PRN #18 tablet PRN Reason: Pain Continue Potassium Chloride [K-Dur] 10 meq PO BID #60 tab.er.prt Albuterol Common Canister [Proventil Common Canister] 1 puff IH QID PRN Changed Chlordiazepoxide HCl 25 mg [Librium 25 mg] 25 mg PO DAILY #9 capsule Instructions: Chronic Obstructive Pulmonary Disease, Pneumonia -- Adult Additional Instructions: followup with your Dr to recheck blood pressure Follow up with: AMBREEN PADILLA [Primary Care Provider] - 11/22/16 3:00 pm Forms: Patient Portal Information
== END 2016-11-20 11:30 | disposition home or self-care (01) | DRG 190 ==
LOC: ED 03:00 → MED SURG 05:36 → OBSVTOIN 11-14 08:13
PROVIDERS: ADMIT Family Medicine; ATTEND Family Medicine
DX: J44.1 Chronic obstructive pulmonary disease with (acute) exacerbation (principal); J96.01 Acute respiratory failure with hypoxia; J18.9 Pneumonia, unspecified organism; I26.99 Other pulmonary embolism without acute cor pulmonale; F10.239 Alcohol dependence with withdrawal, unspecified; E83.42 Hypomagnesemia; E87.6 Hypokalemia; I10 Essential (primary) hypertension; I25.10 Atherosclerotic heart disease of native coronary artery without angina pectoris; M19.90 Unspecified osteoarthritis, unspecified site; K75.9 Inflammatory liver disease, unspecified; Z79.891 Long term (current) use of opiate analgesic; Z79.01 Long term (current) use of anticoagulants; Z79.899 Other long term (current) drug therapy; Z86.73 Personal history of transient ischemic attack (TIA), and cerebral infarction without residual deficits; Z72.0 Tobacco use
CPT/HCPCS: 36000; 36415; 71020; 71260; 80048; 80053; 82962; 83036; 83605; 83690; 83735; 83880; 84132; 84484; 85025; 85027; 87070; 87077; 93005; 93268; 94640; 94760; 96360; 96361; 96365; 96367; 96368; 96374; 99285; G0378; J0456; J0696; J1650; J1940; J2543; J2930; J3475; J3480; A9270-GY; J7506

== ENCOUNTER 2016-11-25 15:42 | Inpatient (IN) | payer MEDICARE ==
[2016-11-25] MEDS ORDERED: DUONEB 0.5-3 MG/3 ml Neb IH ONE (15:46)
[2016-11-25] MEDS ORDERED: Sodium Chloride 0.9% 1000 ML 1,000 ML IV STA ×2 (15:46→16:11)
[2016-11-25] MEDS ORDERED: LEVOFLOXACIN 750MG/150ML D5W 750 MG/150 ML BAG IV STA (15:46)
[2016-11-25] MEDS ORDERED: solu-MEDROL 125 MG IV ONE (15:46)
[2016-11-25] MEDS ORDERED: Sodium Chloride 0.9% 1000 ML 1,000 ML ONE (15:53)
[2016-11-25] MEDS ORDERED: LEVOFLOXACIN 750MG/150ML D5W 750 MG/150 ML BAG IV ONE (15:53)
[2016-11-25 15:57] LABS: Mean Cell Volume 114.1 fl (78-100); Mean Platelet Volume 12.1 fl (6-9.5); Platelet Count 223 K/mm3 (150-450); Red Blood Count 3.91 M/mm3 (4.1-5.6)
--- NOTE | 2016-11-25 16:05 | ERPHSYRPT ---
- History of Present Illness Time Seen by Provider: 11/25/16 16:01 Source: EMS Exam Limitations: clinical condition Patient Subjective Stated Complaint: shortness of breath altered loc Triage Nursing Assessment: pt is lethargic, difficulty breathing, responsive to questions , did not respond to catheter insertion, lung sounds, crackles at bases and very diminished, skin warm to touch and dry, some edema noted in lower extremities Physician History: 50-year-old male with long history of all called abuse, chronic pancreatitis, recent H influenza, pneumonia, small left lower lobe non-occluding pulmonary embolism, chronic obstructive lung disease recently 4 days ago was discharged from the hospital after being treated for pneumonia found to be extremely short of breath and having a fever and altered mental status at home. Patient was wanting to the emergency room by ambulance and and/or out to the emergency room patient was given Narcan and Solu-Medrol 125 mg intravenously. All the both history was obtained from emergency medical ambulance staff due to patient's clinical condition. Timing/Duration: today Associated Symptoms: shortness of breath Allergies/Adverse Reactions: No Known Drug Allergies Allergy (Verified 11/13/16 03:08) Home Medications: Albuterol Common Canister [Proventil Common Canister] 1 puff IH QID PRN [History] Furosemide 40 mg [Lasix 40 MG] 40 mg PO DAILY 11/25/16 [History] Hx Tetanus, Diphtheria Vaccination/Date Given: Yes (UNKNOWN) Hx Influenza Vaccination/Date Given: No Hx Pneumococcal Vaccination/Date Given: No Immunizations Up to Date: Yes - Review of Systems All Other Systems: Unable due to condition - Past Medical History Pertinent Past Medical History: Yes Neurological History: TIA ENT History: No Pertinent History Cardiac History: Coronary Artery Disease, Hypertension Respiratory History: COPD Endocrine Medical History: No Pertinent History Musculoskeletal History: Degenerative Disk Disease, Osteoarthritis, Other GI Medical History: Hepatitis, Pancreatitis History: No Pertinent History Psycho-Social History: No Pertinent History Male Reproductive Disorders: No Pertinent History Other Medical History: CARDIAC BLOCKAGE, Hepatitis C, alcoholism - Past Surgical History Past Surgical History: Yes Neuro Surgical History: No Pertinent History Cardiac: No Pertinent History Respiratory: No Pertinent History Gastrointestinal: No Pertinent History Genitourinary: No Pertinent History Musculoskeletal: Orthopedic Surgery Male Surgical History: No Pertinent History Other Surgical History: NECK SURG IN MAR 2013, Lower back surgery x 2 in 1991, sinus surgery - Social History Smoking Status: Current every day smoker How long have you smoked: 37 Exposure to second hand smoke: No Drug Use: none Patient Lives Alone: No - Nursing Vital Signs Nursing Vital Signs: Initial Vital Signs Temperature 99.9 F 11/25/16 15:42 Pulse Rate 108 H 11/25/16 15:42 Respiratory Rate 22 11/25/16 15:42 Blood Pressure 104/66 11/25/16 15:42 O2 Sat by Pulse Oximetry 85 L 11/25/16 15:42 Pain Scale Pain Intensity 6 - Physical Exam General Appearance: severe distress Eye Exam: pale conjunctivae, post op pupil defect (L), post op pupil defect (R) ENT Exam: pharyngeal erythema Neck Exam: normal inspection, supple, full range of motion Respiratory Exam: decreased air movement, accessory muscle use, prolonged expirations, crackles/rales, rhonchi, wheezing Cardiovascular/Chest Exam: JVD, tachycardia Gastrointestinal/Abdominal Exam: non tender, no distention Male Genitalia: normal genitalia Extremity Exam: non-tender Neurologic Exam: disoriented, confusion, intoxicated appearance SpO2: 85 Oxygen Delivery: BiPap - Course Nursing assessment & vital signs reviewed: Yes EKG Interpreted by Me: Sinus Tach - Radiology Exams Chest X-ray Interpretation: Reviewed by me (right lower lobe pneumonia, ) Ordered Tests: Active Orders 24 hr Category Date Time Status CO2 Monitoring STAT Care 11/25/16 15:46 Active Specialist Field Engineer STAT Care 11/25/16 15:47 Active Catheter-[place] Blue STAT Care 11/25/16 15:46 Active EKG-ER Only STAT Care 11/25/16 15:46 Active NPO (ED) STAT Care 11/25/16 15:46 Active Pulse Oximetry (ED) STAT Care 11/25/16 15:46 Active Rectal Temperature STAT Care 11/25/16 15:46 Active CHEST 1 VIEW (PORTABLE) Stat Exams 11/25/16 15:47 Taken ARTERIAL BLOOD GASES Stat Lab 11/25/16 16:10 Completed BLOOD CULTURE Stat Lab 11/25/16 16:05 Received CBC W DIFF Stat Lab 11/25/16 15:45 Completed CMP Stat Lab 11/25/16 15:45 Received CULTURE,URINE Stat Lab 11/25/16 15:45 Received D-DIMER QUANTITATION Stat Lab 11/25/16 15:45 Completed Lactic Acid Stat Lab 11/25/16 16:10 Completed MAGNESIUM Stat Lab 11/25/16 15:45 Received Manual Differential NC Stat Lab 11/25/16 15:45 Completed NT PRO BNP Stat Lab 11/25/16 15:45 Received TROPONIN Q3H Lab 11/25/16 16:00 Ordered TROPONIN Q3H Lab 11/25/16 19:00 Ordered TROPONIN Q3H Lab 11/25/16 22:00 Ordered TROPONIN Q3H Lab 11/26/16 01:00 Ordered TROPONIN Q3H Lab 11/26/16 04:00 Ordered UA W/RFX UR CULTURE Stat Lab 11/25/16 15:45 Completed BiPap/CPAP Assessment STAT RT 11/25/16 15:46 Active Respiratory Nebulizer STAT RT 11/25/16 15:49 Active Medication Summary Generic Name Dose Route Start Last Admin Trade Name Freq PRN Reason Stop Dose Admin Levofloxacin/Dextrose 750 mg in 150 mls @ 100 mls/hr 11/25/16 15:46 11/25/16 15:55 Levofloxacin 750mg/150ml D5w IV 11/25/16 17:15 100 mls/hr STAT STA Administration Sodium Chloride 1,000 mls @ 999 mls/hr 11/25/16 15:46 11/25/16 15:55 Sodium Chloride 0.9% 1000 Ml IV 11/25/16 16:46 999 mls/hr .Q1H1M STA Administration Sodium Chloride 1,000 mls @ 50 mls/hr 11/25/16 16:00 Sodium Chloride 0.9% 1000 Ml IV 12/25/16 15:59 .Q20H BRIDGET Sodium Chloride 1,000 mls @ 999 mls/hr 11/25/16 16:11 11/25/16 16:12 Sodium Chloride 0.9% 1000 Ml IV 11/25/16 17:11 999 mls/hr .Q1H1M STA Administration Discontinued Medications Generic Name Dose Route Start Last Admin Trade Name Freq PRN Reason Stop Dose Admin Albuterol/Ipratropium 3 ml 11/25/16 15:46 11/25/16 16:15 Duoneb 0.5-3 Mg/3 Ml Neb IH 11/25/16 15:47 3 ml STAT ONE Administration Sodium Chloride Confirm 11/25/16 15:53 Sodium Chloride 0.9% 1000 Ml Administered 11/25/16 15:54 Dose 1,000 mls @ ud .ROUTE .STK-MED ONE Levofloxacin/Dextrose Confirm 11/25/16 15:53 Levofloxacin 750mg/150ml D5w Administered 11/25/16 15:54 Dose 750 mg in 150 mls @ ud IV .STK-MED ONE Methylprednisolone Sodium Succinate 125 mg 11/25/16 15:46 11/25/16 15:52 Solu-Medrol 125 Mg IV 11/25/16 15:47 Not Given STAT ONE Lab/Rad Data: Laboratory Result Diagrams 11/25/16 15:45 Laboratory Results 11/25/16 11/25/16 11/25/16 Range/Units 16:10 15:45 15:45 WBC (4.0-10.5) K/mm3 RBC (4.1-5.6) M/mm3 Hgb (12.5-18.0) gm/dl Hct (42-50) % MCV (78-100) fl MCH (26-32) pg MCHC (32-36) g/dl RDW (11.5-14.0) % Plt Count (150-450) K/mm3 MPV (6-9.5) fl D-Dimer 412 (0-500) ng/mL Puncture Site RIGHT RADIAL pCO2 58 H (35-45) mmHg pO2 84 (75-100) mmHg Base Excess 4.8 H (-2.0-2.0) O2 Saturation 94.5 (94-100) g/dF ABG pH 7.35 (7.35-7.45) ABG HCO3 32.0 H* (22-28) ABG O2 Sat (Measured) 98.2 (95-100) % Asad Test YES A-a Gradient 557 a/A Ratio 0.13 Hemoglobin 13.0 Carboxyhemoglobin 2.5 (0.0-6.9) % THgb Methemoglobin 1.3 L (1.4-1.5) % Potassium 4.4 (3.5-5.1) POC O2 Flow Rate 100 % Inspiratory BiPAP 14 Expiratory BiPAP 7 Lactic Acid 1.9 (0.4-2.0) Ur Collection Type CATH Urine Color YELLOW (YELLOW) Urine Appearance CLEAR (CLEAR) Urine pH 5.0 (5-6) Ur Specific [place] 1.020 (1.005-1.025) Urine Protein NEGATIVE (Negative) Urine Ketones NEGATIVE (NEGATIVE) Urine Blood NEGATIVE (0-5) Ilan/ul Urine Nitrite NEGATIVE (NEGATIVE) Urine Bilirubin NEGATIVE (NEGATIVE) Urine Urobilinogen NORMAL (0-1) mg/dL Ur Leukocyte Esterase NEGATIVE (NEGATIVE) Urine Glucose 250 (NEGATIVE) mg/dL Specimen Received 11/25/16 1550 11/25/16 Range/Units 15:45 WBC 48.4 H* (4.0-10.5) K/mm3 RBC 3.91 L (4.1-5.6) M/mm3 Hgb 14.1 (12.5-18.0) gm/dl Hct 44.6 (42-50) % MCV 114.1 H (78-100) fl MCH 36.0 H (26-32) pg MCHC 31.6 L (32-36) g/dl RDW 13.0 (11.5-14.0) % Plt Count 223 (150-450) K/mm3 MPV 12.1 H (6-9.5) fl D-Dimer (0-500) ng/mL Puncture Site pCO2 (35-45) mmHg pO2 (75-100) mmHg Base Excess (-2.0-2.0) O2 Saturation (94-100) g/dF ABG pH (7.35-7.45) ABG HCO3 (22-28) ABG O2 Sat (Measured) (95-100) % Asad Test A-a Gradient a/A Ratio Hemoglobin Carboxyhemoglobin (0.0-6.9) % THgb Methemoglobin (1.4-1.5) % Potassium (3.5-5.1) POC O2 Flow Rate % Inspiratory BiPAP Expiratory BiPAP Lactic Acid (0.4-2.0) Ur Collection Type Urine Color (YELLOW) Urine Appearance (CLEAR) Urine pH (5-6) Ur Specific [place] (1.005-1.025) Urine Protein (Negative) Urine Ketones (NEGATIVE) Urine Blood (0-5) Ilan/ul Urine Nitrite (NEGATIVE) Urine Bilirubin (NEGATIVE) Urine Urobilinogen (0-1) mg/dL Ur Leukocyte Esterase (NEGATIVE) Urine Glucose (NEGATIVE) mg/dL Specimen Received - Progress Progress: improved Progress Note: 11/25/16 16:32 Assessment as patient arrived in the emergency room, quick evaluation including physical exam was suggestive of acute respiratory failure, probably secondary to either COPD exacerbation or pneumonia. Septic shock protocol started. Patient was given 3 L of IV fluid normal saline state over one hour. IV Levaquin was given IV steroid was given patient was put on BiPAP. Patient white count was 48,000 and chest x-ray was showing a right lower lobe pneumonia. In one hour. Patient was much more alert, awake, oriented to time, place and person and was able to answer all the Sabianist is respiratory distress has been much more improved. Dr. Ramey, who was covering for Dr. Ambreen Gutierres contacted and patient will be admitted in intensive care unit with diagnosis of acute respiratory failure secondary to pneumonia. Discussed with : Tanvir Boss Will see patient in: hospital (full admit) Counseled pt/family regarding: lab results, diagnosis, need for follow-up - Departure Time of Disposition: 16:31 Departure Disposition: In-patient Admission Clinical Impression: Acute hypoxemic respiratory failure Pneumonia Qualifiers: Pneumonia type: aspiration pneumonia Aspiration pneumonia type: unspecified Laterality: right Lung location: lower lobe of lung Qualified Code(s): J69.0 - Pneumonitis due to inhalation of food and vomit Condition: Fair Critical Care Time: Yes Critical Care Time(excluding separately billable procedures): 30-74 minutes Referrals: AMBREEN PADILLA [Primary Care Provider] -
[2016-11-25 16:07] LABS: White Blood Count 48.4 K/mm3 (4.0-10.5)
[2016-11-25 16:13] LABS: A-aADO2 557; ALLEN TEST OK? YES; ARTERIAL BLD GAS O2 SATURATION 98.2 % (95-100); ARTERIAL BLOOD GAS BASE EXCESS 4.8 (-2.0-2.0); ARTERIAL BLOOD GAS FIO2 100 %; ARTERIAL BLOOD GAS PO2 84 mmHg (75-100); ARTERIAL BLOOD GAS pH 7.35 (7.35-7.45); BIPAP(E) 7; BIPAP(I) 14; Lactic Acid 1.9 (0.4-2.0)
[2016-11-25 16:13] LABS: ADD URINE CULTURE? NO (NO); Bilirubin NEGATIVE (NEGATIVE); Blood NEGATIVE Ery/ul (0-5); COMPLETE URINE MICROSCOPIC? NO; Collection Type CATH; Glucose 250 mg/dL (NEGATIVE); Leukocyte Esterase NEGATIVE (NEGATIVE)
[2016-11-25] MEDS ORDERED: ROCEPHIN 1 Gm-D5w 50 ml Bag** 1 G/50 ML IVPB IV STA (16:38)
[2016-11-25] MEDS ORDERED: ROCEPHIN 1 Gm-D5w 50 ml Bag** 1 G/50 ML IVPB IV ONE (16:41)
[2016-11-25] MEDS: Sodium Chloride 0.9% 1000 ML 1,000 ML IV SCH ×2 (16:45→18:20)
[2016-11-25] MEDS: DUONEB 0.5-3 MG/3 ml Neb IH SCH (19:19)
[2016-11-25] MEDS ORDERED: Zofran 4 MG/2 ML VIAL IV PRN (20:07)
[2016-11-25] MEDS ORDERED: TYLENOL 325 MG PO PRN (20:07)
[2016-11-25] MEDS: Nicoderm CQ 21 MG TOP SCH (20:29)
[2016-11-25] MEDS: solu-MEDROL 125 MG IV SCH (20:29)
--- NOTE | 2016-11-25 22:02 | XRAY ---
Indication: Short of breath. Comparison: November 17, 2016. Portable chest demonstrates new right mid to lower lung infiltrate/atelectasis. Remaining heart and left lung unremarkable.
[2016-11-26] MEDS: DUONEB 0.5-3 MG/3 ml Neb IH SCH ×4 (00:57→18:58)
[2016-11-26] MEDS: solu-MEDROL 125 MG IV SCH ×4 (03:08→21:09)
[2016-11-26 04:24] LABS: Mean Cell Volume 113.4 fl (78-100); Platelet Count 158 K/mm3 (150-450); Red Blood Count 3.57 M/mm3 (4.1-5.6); Red Cell Distribution Width 12.4 % (11.5-14.0)
[2016-11-26 04:35] LABS: Mean Corpuscular Hemoglobin 35.5 pg (26-32)
[2016-11-26 04:38] LABS: ANION GAP 10.3 MEQ/L (5-15); Carbon Dioxide 29.4 mEq/L (21-32); Potassium 4.9 mEq/L (3.5-5.1)
[2016-11-26 04:53] LABS: ANISOCYTOSIS 1+; BAND 2 % (0.0-2.0); Macrocytosis 1+; Platelet Estimate NORMAL (NORMAL); Total Cells Counted 100
[2016-11-26] MEDS ORDERED: DUONEB 0.5-3 MG/3 ml Neb IH ONE (06:59)
[2016-11-26] MEDS: Zosyn 3.375GM/100 Ml D5W 3.375 GM/100 ML IVPB IV SCH ×5 (07:12→18:31)
[2016-11-26] MEDS ORDERED: PHARMACY DOSING REQUEST MC ONE ×2 (09:25)
[2016-11-26] MEDS: Dextrose 5% -0.45 NaCl 1000 ML 1,000 ML IV SCH ×2 (09:43→22:17)
[2016-11-26] MEDS ORDERED: MEDICATION INTERVENTION MC PRN (09:56)
[2016-11-26] MEDS ORDERED: Zithromax 500 MG/ 250 ML NaCl Premix 500 MG/250 ML IVPB IV SCH (10:00)
[2016-11-26] MEDS ORDERED: NON-FORMULARY ITEM (Fluticasone/Vilanterol [Breo Ellipta 200-25 Mcg Inh] 1 EACH) IH SCH (10:00)
[2016-11-26] MEDS ORDERED: PROVENTIL COMMON CANISTER IH PRN (10:00)
[2016-11-26] MEDS ORDERED: NON-FORMULARY ITEM (Omeprazole 20 Mg [Prilosec 20 Mg] 20 MG) PO SCH (10:00)
[2016-11-26] MEDS: ELIQUIS PO SCH ×2 (10:05→21:09)
[2016-11-26] MEDS: NEURONTIN 300 MG PO SCH ×3 (10:05→21:09)
[2016-11-26] MEDS: Protonix 40MG Tablet PO SCH (10:05)
[2016-11-26] MEDS: Lasix 40 MG PO SCH (10:05)
[2016-11-26] MEDS: LIBRIUM 25 MG PO SCH (10:05)
--- NOTE | 2016-11-26 10:05 | XRAY ---
Indication: Pneumonia. Comparison: One day earlier. Portable chest demonstrates mild clearing of the previous right base infiltrate/atelectasis with now mild right upper lobe airspace disease. Remaining heart and left lung unremarkable. Comment: Preliminary interpretation was made by [facility]. No discrepancy.
[2016-11-26] MEDS: Levofloxacin 500MG/100ML D5W 500 MG/100 ML BAG IV SCH (15:12)
[2016-11-26] MEDS: Nicoderm CQ 21 MG TOP SCH (19:53)
[2016-11-26] MEDS: Tylenol #3 Tablet PO PRN (19:53)
[2016-11-26] MEDS: NovoLOG Insulin SQ PRN (22:52)
[2016-11-27] MEDS: Zosyn 3.375GM/100 Ml D5W 3.375 GM/100 ML IVPB IV SCH ×5 (00:24→23:55)
[2016-11-27] MEDS: DUONEB 0.5-3 MG/3 ml Neb IH SCH ×4 (01:06→19:01)
[2016-11-27] MEDS: solu-MEDROL 125 MG IV SCH ×2 (03:18→07:41)
[2016-11-27 05:34] LABS: Mean Cell Volume 109.4 fl (78-100); Mean Corpuscular Hemoglobin 35.1 pg (26-32); Mean Platelet Volume 12.1 fl (6-9.5); Platelet Count 145 K/mm3 (150-450); Red Blood Count 3.41 M/mm3 (4.1-5.6); Red Cell Distribution Width 11.5 % (11.5-14.0)
[2016-11-27 05:52] LABS: BAND 9 % (0.0-2.0); Total Cells Counted 100
[2016-11-27 05:56] LABS: ANISOCYTOSIS 1+; Dohle Bodies 1+; Platelet Estimate NORMAL (NORMAL); Poikilocytosis 1+
[2016-11-27 06:13] LABS: ANION GAP 10.1 MEQ/L (5-15); Carbon Dioxide 29.8 mEq/L (21-32)
[2016-11-27] MEDS: PATIENT OWN MEDICATION IH SCH (07:18)
[2016-11-27] MEDS: NovoLOG Insulin SQ PRN ×4 (07:41→21:28)
--- NOTE | 2016-11-27 07:54 | HP ---
HISTORY OF PRESENT ILLNESS: This is a 50 year-old patient of Dr. Ed Hdz who presented to the emergency department after being found by his son and the ambulance called in acute respiratory distress. The patient reports he does not remember anything that happened. He was recently in the hospital with pneumonia with a sputum culture that grew Haemophilus influenza that was collected on 11/13/2016 and adequately treated with antibiotics. During that time the patient was finishing up a course of Augmentin at home as there was concern for aspiration at that time. The patient reports that he continued to have a cough at home with sputum that was white. He denied any fever, denied any nausea or vomiting. He reports that he used to smoke one pack per day but had been unable to smoke and was only smoking half a cigarette in the past two days. He had home oxygen at 4 liters he reports and that was working fine. The patient reports he has been in the hospital four times in the past four weeks. He reports that his breathing is much better now. The nurses note that taking him off the BiPAP they are unable to keep his oxygen saturation above 88% on the nasal cannula but he was able to ambulate to the toilet and have his breakfast this morning. His chest x-ray in the emergency department revealed a new right mid and lower lung infiltrate/atelectasis. He had chest CT last 11/19/2016 that had revealed a tiny nonoccluding left lower lobe pulmonary embolus with no distal infarct and bilateral atelectasis and fibrosis/scarring, a tiny right effusion and incidental fatty liver and splenomegaly. Please see the radiologist report for that full dictation. The patient does not think he has seen a playground monitor recently. He thinks in the remote past that he had seen Dr. Terry Aguirre. The patient has a history of alcohol withdrawal but states that he has not drank in four weeks and was drinking half a pint before then. He states he is a little shaky. REVIEW OF SYSTEMS: He denies any chest pain. No lower extremity edema. No abdominal pain. No fever. No nausea or vomiting. Otherwise the review of systems is negative. PAST MEDICAL HISTORY: Transient ischemic attack, coronary artery disease, hypertension, chronic obstructive pulmonary disease, osteoarthritis, degenerative disc disease, hepatitis C, pancreatitis, alcoholism. PAST SURGICAL HISTORY: Neck surgery March 2013. Lower back surgery 1991. Sinus surgery. MEDICATIONS: Albuterol 1 puff four times a day as needed, Augmentin 875 mg p.o. every 12 hours, Eliquis 5 mg p.o. b.i.d., Librium 25 mg p.o. daily, clonidine 0.2 mg p.o. t.i.d., Breo 1 puff daily, Furosemide 40 mg p.o. daily, gabapentin 300 mg t.i.d., magnesium oxide 800 mg p.o. b.i.d., omeprazole 20 mg p.o. daily, potassium chloride 10 mEq p.o. b.i.d., prednisone 40 mg p.o. daily, tramadol 50 mg every 8 hours as needed. ALLERGIES: NKDA. SOCIAL HISTORY: He continues to smoke. He has a history of one pack per day but has not been able to smoke that much here recently. Denies any alcohol use in the past four weeks. Has history of heavy alcohol use before that. He is and lives with his . He denies any illicit drug use. FAMILY HISTORY: His mother is living and has hypertension and heart disease. His father is and had lung cancer. PHYSICAL EXAMINATION: VITAL SIGNS: Temperature current 97.5F, temperature max 101.1F, heart rate 84 to 108 currently 89, respiratory rate 12 to 26 currently 13, blood pressure 90 to 117 over 43 to 82. Oxygen saturation 88% on 4 liters and 96% on BiPAP. He was 85% on room air when he came into the emergency room. GENERAL: The patient is a pleasant man sitting up. He has some tremors of his hands but otherwise no acute distress. NECK: IV in his left jugular. CVS: He has a regular rate and rhythm. No murmurs, gallops or rubs. CHEST: Wheezing throughout and rhonchi at the bases bilaterally. No retractions. He is able to talk in full sentences. ABDOMEN: Soft, nontender, nondistended with normal bowel sounds. EXTREMITIES: No clubbing, cyanosis or edema. He has an IV in his right arm. SKIN: Warm, dry and intact. LABORATORY DATA AND TESTS: His white blood cell count 48,400 on admission and 32,000 today with 94% neutrophils, 2% bands, 2% lymphs. BMP revealed creatinine 1.7. His baseline is 0.98 on 11/19/2016. Glucose 245. Serial troponins have been negative. Lactic acid on admission was 1.9. UA had some glucose. Portable chest x-ray yesterday new right lower lung infiltrate/atelectasis. ASSESSMENT AND PLAN: 1) RIGHT MIDDLE LOBE AND LOWER LOBE PNEUMONIA. He was given levofloxacin and ceftriaxone in the emergency room. I am going to change him to Unasyn with the pharmacist to dose due to his acute renal failure and also continue levofloxacin. Will continue with oxygen as needed and breathing treatments. I will ask playground monitor, Dr. Terry Aguirre, to see him when he is available. Will continue BiPAP as needed also. 2) CHRONIC OBSTRUCTIVE PULMONARY DISEASE EXACERBATION: He has been started on IV steroids which will be continued. The patient was counseled that he needs to quit smoking. 3) ACUTE RENAL FAILURE: I will continue with IV fluids and check his BMP in the a.m. 4) HYPERGLYCEMIA: Will check hemoglobin A1C. 5) HISTORY OF ALCOHOLISM: He is on alcohol withdrawal protocol and the nurses state that he does not need any Valium at this time. I am holding his clonidine due to his low blood pressure and continue the Librium. 6) TREMORS: It is unclear if this is from alcohol withdrawal or from an essential tremor. He will need to be worked up as an outpatient for this. 7) HISTORY OF PULMONARY EMBOLISM: Will restart his Eliquis. 8) HISTORY OF CORONARY ARTERY DISEASE: He seems to be stable at this point. He was ruled out for acute myocardial infarction. Plan to continue Eliquis.
[2016-11-27] MEDS: NEURONTIN 300 MG PO SCH ×3 (09:22→22:12)
[2016-11-27] MEDS: LIBRIUM 25 MG PO SCH (09:22)
[2016-11-27] MEDS: Lasix 40 MG PO SCH (09:22)
[2016-11-27] MEDS: ELIQUIS PO SCH ×2 (09:22→22:12)
[2016-11-27] MEDS: Dextrose 5% -0.45 NaCl 1000 ML 1,000 ML IV SCH (09:22)
[2016-11-27] MEDS: Protonix 40MG Tablet PO SCH (09:22)
[2016-11-27] MEDS: Lantus Insulin SQ SCH (09:38)
[2016-11-27] MEDS: Tylenol #3 Tablet PO PRN ×3 (09:38→22:16)
--- NOTE | 2016-11-27 13:39 | PCM.NOTE ---
Date and Time: 11/27/16 6713 Subjective Assessment: Patient reports that he continues to have a cough that is nonproductive and some rattling in his chest. He continues to have wheezing. He usually does not have trouble with his blood glucoses being high. He reports a good appetite. He was asking for pain medication for his neck yesterday afternoon and had been on tramadol for his pleuritic chest pain before his admission. - Review of Systems Constitutional: No Symptoms Eyes: No Symptoms Ears, Nose, & Throat: No Symptoms Respiratory: Cough, Short Of Breath, Wheezing Cardiac: No Symptoms Abdominal/Gastrointestinal: No Symptoms Genitourinary Symptoms: No Symptoms Musculoskeletal: No Symptoms Skin: No Symptoms Objective Exam General Appearance: no apparent distress Neurologic Exam: alert, cooperative, normal mood/affect Skin Exam: normal color, warm, dry Respiratory Exam: wheezing, other (wheezing throughout, equal breath sounds, no tachypnea, speaking in full sentences.), No crackles/rales, No rhonchi Cardiovascular Exam: regular rate/rhythm, normal heart sounds, capillary refill <2 sec, No friction rub, No gallop, No tachycardia Gastrointestinal/Abdomen Exam: soft, normal bowel sounds, No tenderness, No distention, No mass Extremity Exam: other (no c/c/e) OBJECTIVE DATA Vital Signs: Vital Signs - 24 hr Temp Pulse Resp BP Pulse Ox 11/27/16 12:00 20 11/27/16 11:43 97.8 F 97 H 20 165/97 92 L 11/27/16 07:54 22 11/27/16 07:18 77 22 95 11/27/16 07:15 97.8 F 95 H 20 167/88 92 L 11/27/16 04:05 97.8 F 100 H 20 169/93 92 L 11/27/16 01:08 97 H 20 95 11/27/16 00:00 22 11/26/16 23:52 97.7 F 97 H 22 165/101 96 11/26/16 20:05 97.8 F 104 H 22 140/75 92 L 11/26/16 20:00 22 11/26/16 19:02 98 H 25 H 95 11/26/16 16:12 97.8 F 96 H 22 118/66 96 11/26/16 16:00 18 Oxygen-Last 24 hours O2 Percentage 4 Liters = 36% O2 Percentage 4 Liters = 36% O2 Percentage 4 Liters = 36% O2 Percentage 4 Liters = 36% O2 Percentage 4 Liters = 36% O2 Percentage 4 Liters = 36% Oxygen Flowrate (L/min)-RT 165 Pain Assessment - Last Documented Pain Intensity 5 Pain Scale Used 0-10 Pain Scale Intake and Output: Intake & Output 11/25/16 11/26/16 11/27/16 11/28/16 06:59 06:59 06:59 06:59 Intake Total 1694 4890 600 Output Total 2600 1750 Balance -906 3140 600 Weight 85.1 kg Lab Results: Accuchecks Date 11/27/16 Date 11/26/16 Time 07:30 Time 22:00 Accucheck Value: 370 Accucheck Value: 496 Lab Results-Last 24 Hours 11/26/16 11/27/16 11/27/16 Range/Units 21:55 05:17 05:17 WBC 23.0 H (4.0-10.5) K/mm3 RBC 3.41 L (4.1-5.6) M/mm3 Hgb 12.0 L (12.5-18.0) gm/dl Hct 37.3 L (42-50) % MCV 109.4 H (78-100) fl MCH 35.1 H (26-32) pg MCHC 32.2 (32-36) g/dl RDW 11.5 (11.5-14.0) % Plt Count 145 L (150-450) K/mm3 MPV 12.1 H (6-9.5) fl Segmented Neutrophils 90 H (36.-66.) % Band Neutrophils 9 H (0.0-2.0) % Lymphocytes (Manual) 1 L (24-44) % Differential Comment ABNORMAL Dohle Bodies 1+ Platelet Estimate NORMAL (NORMAL) Poikilocytosis 1+ Anisocytosis 1+ Sodium 137 (136-145) mEq/L Potassium 4.0 (3.5-5.1) mEq/L Chloride 101 (98-107) mEq/L Carbon Dioxide 29.8 (21-32) mEq/L Anion Gap 10.1 (5-15) MEQ/L BUN 23 H (9-20) mg/dL Creatinine 1.37 H (0.55-1.30) mg/dl Estimated GFR 58 ML/MIN Glucose 476 H 441 H (70-110) MG/DL Calcium 8.7 (8.5-10.1) mg/dL Radiology Exams: Radiology Procedures Category Date Time Status CHEST 1 VIEW (PORTABLE) Routine Exams 11/25/16 17:22 Completed Multi-Disciplinary Progress Notes: Multi-Disciplinary Progress Notes 11/27/16 09:51 Case Management Note by Carissa Metcalf IMPORTANT PAPERS FROM [employer] SIGNED, COPY TO PATIENT, AND COPY TO THE CHART. Initialized on 11/27/16 09:51 - END OF NOTE Assessment/Plan (1) Pneumonia Current Visit: Yes Status: Acute Qualifiers: Pneumonia type: aspiration pneumonia Aspiration pneumonia type: unspecified Laterality: right Lung location: unspecified part of lung Qualified Code(s): J69.0 - Pneumonitis due to inhalation of food and vomit Assessment & Plan: Continue zosyn and levofloxacin. Head Refrigerating Engineer, Dr. Zeyad Aguirre consulted. Continue breathing treatments and oxygen. Start to wean down steroids. WBC count is high but continues to improve. Code(s): J18.9 - PNEUMONIA, UNSPECIFIED ORGANISM (2) COPD with exacerbation Current Visit: Yes Status: Acute Assessment & Plan: Continue antibiotics, IV steroids, oxgyen, breathing treatments. Code(s): J44.1 - CHRONIC OBSTRUCTIVE PULMONARY DISEASE W (ACUTE) EXACERBATION (3) Acute renal failure Current Visit: Yes Status: Acute Assessment & Plan: Improved with IV fluilds. It is possible he may have some underlying chronic kidney disease. (4) Hyperglycemia Current Visit: Yes Status: Acute Code(s): R73.9 - HYPERGLYCEMIA, UNSPECIFIED (5) Hyperglycemia, drug-induced Current Visit: Yes Status: Acute Assessment & Plan: His Hgb A1C was normal. Will start to wean steroids and stop IV fluids which had D5 in them. Start lantus 10 units daily and low dose sliding scale if needed. Code(s): R73.9 - HYPERGLYCEMIA, UNSPECIFIED (6) History of alcoholism Current Visit: Yes Status: Acute Assessment & Plan: Patient reports last drink 4 weeks ago. Will continue with alcohol withdrawl protocol if needed but may be ok if it has been 4 weeks since last drink of alcohol. Code(s): F10.21 - ALCOHOL DEPENDENCE, IN REMISSION (7) History of pulmonary embolism Current Visit: Yes Status: Acute Assessment & Plan: Diagnosed this month. Continue with anticoagulation. Code(s): Z86.711 - PERSONAL HISTORY OF PULMONARY EMBOLISM (8) History of coronary artery disease Current Visit: Yes Status: Acute Code(s): Z86.79 - PERSONAL HISTORY OF OTHER DISEASES OF THE CIRCULATORY SYSTEM (9) Hypertension Current Visit: Yes Status: Acute Assessment & Plan: Start nifedipine XL 30 mg po daily. Will avoid beta blockers due to COPD and kelly inhibitors due to acute renal failure. Code(s): I10 - ESSENTIAL (PRIMARY) HYPERTENSION
[2016-11-27] MEDS: solu-MEDROL 40 MG IV SCH ×2 (13:50→22:12)
[2016-11-27] MEDS: Sodium Chloride 0.9% 10 ML FLUSH Syringe IV SCH (13:57)
[2016-11-27] MEDS ORDERED: Adalat CC 30 MG TABLET PO SCH (14:00)
[2016-11-27] MEDS: Levofloxacin 500MG/100ML D5W 500 MG/100 ML BAG IV SCH (15:20)
[2016-11-27 16:42] LABS: BAND 12 % (0.0-2.0); Total Cells Counted 100
[2016-11-27 16:43] LABS: ANISOCYTOSIS RARE; Platelet Estimate NORMAL (NORMAL)
[2016-11-27 16:45] LABS: Stomatocyte RARE
[2016-11-27] MEDS: Nicoderm CQ 21 MG TOP SCH (22:08)
[2016-11-28] MEDS: DUONEB 0.5-3 MG/3 ml Neb IH SCH ×4 (01:12→19:38)
[2016-11-28 05:29] LABS: Mean Cell Volume 108.3 fl (78-100); Mean Platelet Volume 12.1 fl (6-9.5); Platelet Count 171 K/mm3 (150-450); Red Blood Count 3.61 M/mm3 (4.1-5.6); Red Cell Distribution Width 11.5 % (11.5-14.0); White Blood Count 16.5 K/mm3 (4.0-10.5)
[2016-11-28 05:35] LABS: Mean Corpuscular Hemoglobin 35.4 pg (26-32)
[2016-11-28 05:46] LABS: ANION GAP 11.3 MEQ/L (5-15); Potassium 4.2 mEq/L (3.5-5.1)
[2016-11-28] MEDS: Tylenol #3 Tablet PO PRN ×3 (06:20→22:17)
[2016-11-28] MEDS: solu-MEDROL 40 MG IV SCH ×3 (06:20→22:18)
[2016-11-28] MEDS: Zosyn 3.375GM/100 Ml D5W 3.375 GM/100 ML IVPB IV SCH ×4 (06:20→23:24)
[2016-11-28 06:56] LABS: BAND 1 % (0.0-2.0); Platelet Estimate NORMAL (NORMAL); Total Cells Counted 100; Toxic Granulation 2+
[2016-11-28] MEDS: Sodium Chloride 0.9% 10 ML FLUSH Syringe IV SCH ×4 (07:24→22:21)
[2016-11-28] MEDS: Lantus Insulin SQ SCH ×2 (07:25→10:25)
[2016-11-28] MEDS: NovoLOG Insulin SQ PRN ×3 (07:25→22:18)
--- NOTE | 2016-11-28 08:57 | PCM.NOTE ---
Date and Time: 11/28/16 0853 Subjective Assessment: party planner reports that Dr. Zeyad Aguirre, yoga instructor, plans to see him tomorrow. Pt reports continued cough and trouble coughing stuff up and shortness of breath. His appetite has been good and he has been taking fluids well. - Review of Systems Constitutional: No Symptoms Eyes: No Symptoms Ears, Nose, & Throat: No Symptoms Respiratory: Cough, Short Of Breath, Wheezing Cardiac: No Symptoms Abdominal/Gastrointestinal: No Symptoms Genitourinary Symptoms: No Symptoms Musculoskeletal: No Symptoms Skin: No Symptoms Objective Exam General Appearance: no apparent distress, alert Neurologic Exam: alert, cooperative, normal mood/affect Skin Exam: normal color, warm, dry, No rash Respiratory Exam: wheezing, other (wheezing throughout but improved from yesterday, some shortness of breath when talking, mild tachypnea) Cardiovascular Exam: regular rate/rhythm, normal heart sounds, No murmur, No friction rub, No gallop Gastrointestinal/Abdomen Exam: soft, normal bowel sounds, No tenderness, No distention, No mass Extremity Exam: other (no c/c/e) OBJECTIVE DATA Vital Signs: Vital Signs - 24 hr Temp Pulse Resp BP Pulse Ox 11/28/16 08:00 18 11/28/16 07:35 98.3 F 91 H 18 154/92 93 L 11/28/16 07:06 94 H 18 93 L 11/28/16 04:00 98.2 F 78 21 179/106 91 L 11/28/16 01:14 96 H 20 92 L 11/28/16 00:00 16 11/27/16 23:29 97.7 F 99 H 22 191/109 92 L 11/27/16 20:00 97.5 F 93 H 18 173/108 94 L 11/27/16 19:04 91 H 18 95 11/27/16 16:00 97.5 F 90 20 176/100 94 L 11/27/16 12:00 20 11/27/16 11:43 97.8 F 97 H 20 165/97 92 L Oxygen-Last 24 hours O2 Percentage 4 Liters = 36% O2 Percentage 4 Liters = 36% O2 Percentage 4 Liters = 36% O2 Percentage 4 Liters = 36% O2 Percentage 4 Liters = 36% O2 Percentage 4 Liters = 36% Oxygen Flowrate (L/min)-RT 165 Pain Assessment - Last Documented Pain Intensity 1 Pain Scale Used 0-10 Pain Scale Intake and Output: Intake & Output 11/26/16 11/27/16 11/28/16 11/29/16 06:59 06:59 06:59 06:59 Intake Total 1693 0769 2820 Output Total 2600 1750 Balance -906 3140 2820 Weight 85.1 kg 85.1 kg Lab Results: Accuchecks Date 11/28/16 Date 11/27/16 Date 11/27/16 Date 11/27/16 Time 07:30 Time 22:01 Time 16:00 Time 11:30 Accucheck Value: 347 Accucheck Value: 301 Accucheck Value: 381 Lab Results-Last 24 Hours 11/28/16 11/28/16 Range/Units 05:00 05:00 WBC 16.5 H (4.0-10.5) K/mm3 RBC 3.61 L (4.1-5.6) M/mm3 Hgb 12.8 (12.5-18.0) gm/dl Hct 39.1 L (42-50) % MCV 108.3 H (78-100) fl MCH 35.4 H (26-32) pg MCHC 32.7 (32-36) g/dl RDW 11.5 (11.5-14.0) % Plt Count 171 (150-450) K/mm3 MPV 12.1 H (6-9.5) fl Segmented Neutrophils 94 H (36.-66.) % Band Neutrophils 1 (0.0-2.0) % Lymphocytes (Manual) 4 L (24-44) % Monocytes (Manual) 1 (0.0-12.0) % Differential Comment NORMAL Toxic Granulation 2+ Platelet Estimate NORMAL (NORMAL) Sodium 141 (136-145) mEq/L Potassium 4.2 (3.5-5.1) mEq/L Chloride 101 (98-107) mEq/L Carbon Dioxide 33.0 H (21-32) mEq/L Anion Gap 11.3 (5-15) MEQ/L BUN 19 (9-20) mg/dL Creatinine 1.35 H (0.55-1.30) mg/dl Estimated GFR 59 ML/MIN Glucose 369 H (70-110) MG/DL Calcium 9.0 (8.5-10.1) mg/dL Radiology Exams: Radiology Procedures Category Date Time Status CHEST 2 VIEWS (PA AND LAT) Routine Exams 11/28/16 Ordered Multi-Disciplinary Progress Notes: Multi-Disciplinary Progress Notes 11/27/16 09:51 Case Management Note by Carissa Metcalf IMPORTANT PAPERS FROM [employer] SIGNED, COPY TO PATIENT, AND COPY TO THE CHART. Initialized on 11/27/16 09:51 - END OF NOTE Assessment/Plan (1) Pneumonia Current Visit: Yes Status: Acute Qualifiers: Pneumonia type: aspiration pneumonia Aspiration pneumonia type: unspecified Laterality: right Lung location: unspecified part of lung Qualified Code(s): J69.0 - Pneumonitis due to inhalation of food and vomit Assessment & Plan: Continue zosyn, levofloxacin. Dr. Zeyad Aguirre, yoga instructor, consulted. Continue oxygen and breathing treatments and recheck chest X-ray PA and lateral today. Code(s): J18.9 - PNEUMONIA, UNSPECIFIED ORGANISM (2) COPD with exacerbation Current Visit: Yes Status: Acute Assessment & Plan: Continue zosyn, levofloxacin, and IV steroids. continue oxygen and breathing treatments. Code(s): J44.1 - CHRONIC OBSTRUCTIVE PULMONARY DISEASE W (ACUTE) EXACERBATION (3) Acute renal failure Current Visit: Yes Status: Acute Assessment & Plan: Improving. (4) Hyperglycemia Current Visit: Yes Status: Acute Assessment & Plan: Change to diabetic diet, Increase lantus to 20 units daily and change to moderate dose sliding scale. Code(s): R73.9 - HYPERGLYCEMIA, UNSPECIFIED (5) Hyperglycemia, drug-induced Current Visit: Yes Status: Acute Code(s): R73.9 - HYPERGLYCEMIA, UNSPECIFIED (6) History of alcoholism Current Visit: Yes Status: Acute Code(s): F10.21 - ALCOHOL DEPENDENCE, IN REMISSION (7) History of pulmonary embolism Current Visit: Yes Status: Acute Assessment & Plan: Continue anticoagulation. Code(s): Z86.711 - PERSONAL HISTORY OF PULMONARY EMBOLISM (8) History of coronary artery disease Current Visit: Yes Status: Acute Code(s): Z86.79 - PERSONAL HISTORY OF OTHER DISEASES OF THE CIRCULATORY SYSTEM (9) Hypertension Current Visit: Yes Status: Acute Assessment & Plan: Increase nifedipine XL from 30 mg to 60 mg. Code(s): I10 - ESSENTIAL (PRIMARY) HYPERTENSION
--- NOTE | 2016-11-28 09:22 | XRAY ---
Indication: Pneumonia. Comparison: November 26, 2016. PA/lateral chest demonstrates continued clearing of the previous right base infiltrate/atelectasis with minimal residual. No new/acute cardiopulmonary abnormalities.
[2016-11-28] MEDS ORDERED: Adalat CC 30 MG TABLET PO SCH (10:00)
[2016-11-28] MEDS: LIBRIUM 25 MG PO SCH (10:28)
[2016-11-28] MEDS: ELIQUIS PO SCH ×2 (10:29→22:17)
[2016-11-28] MEDS: Lasix 40 MG PO SCH (10:29)
[2016-11-28] MEDS: NEURONTIN 300 MG PO SCH ×3 (10:29→22:17)
[2016-11-28] MEDS: Protonix 40MG Tablet PO SCH (10:49)
[2016-11-28] MEDS: Levofloxacin 500MG/100ML D5W 500 MG/100 ML BAG IV SCH (14:29)
[2016-11-28] MEDS: Nicoderm CQ 21 MG TOP SCH (19:52)
[2016-11-29] MEDS: solu-MEDROL 40 MG IV SCH (05:22)
[2016-11-29] MEDS: Zosyn 3.375GM/100 Ml D5W 3.375 GM/100 ML IVPB IV SCH ×3 (05:22→18:09)
[2016-11-29 05:58] LABS: Mean Cell Volume 107.1 fl (78-100); Mean Platelet Volume 11.9 fl (6-9.5); Platelet Count 168 K/mm3 (150-450); Red Blood Count 3.79 M/mm3 (4.1-5.6); Red Cell Distribution Width 11.5 % (11.5-14.0); White Blood Count 11.3 K/mm3 (4.0-10.5)
[2016-11-29] MEDS: DUONEB 0.5-3 MG/3 ml Neb IH SCH ×4 (06:01→19:29)
[2016-11-29 06:14] LABS: ANION GAP 10.6 MEQ/L (5-15); BLOOD UREA NITROGEN 19 mg/dL (9-20); CHLORIDE 98 mEq/L (98-107); Carbon Dioxide 34.4 mEq/L (21-32); Glucose 235 MG/DL (70-110); Potassium 3.8 mEq/L (3.5-5.1); SODIUM 139 mEq/L (136-145)
[2016-11-29] MEDS: PATIENT OWN MEDICATION IH SCH ×2 (07:39→08:00)
[2016-11-29 07:44] LABS: BAND 2 % (0.0-2.0); Platelet Estimate NORMAL (NORMAL); Total Cells Counted 100
[2016-11-29] MEDS: Lantus Insulin SQ SCH (07:59)
[2016-11-29] MEDS: NovoLOG Insulin SQ PRN ×4 (07:59→22:14)
[2016-11-29] MEDS: Sodium Chloride 0.9% 10 ML FLUSH Syringe IV SCH ×3 (08:05→22:43)
[2016-11-29] MEDS: Protonix 40MG Tablet PO SCH (09:58)
[2016-11-29] MEDS: DELTASONE 20 MG PO SCH (09:58)
[2016-11-29] MEDS: ELIQUIS PO SCH ×2 (09:58→22:13)
[2016-11-29] MEDS: Colace 100 MG PO SCH ×2 (09:58→22:13)
[2016-11-29] MEDS: NEURONTIN 300 MG PO SCH ×3 (09:59→22:13)
[2016-11-29] MEDS: Adalat CC 30 MG TABLET PO SCH (09:59)
[2016-11-29] MEDS: LIBRIUM 25 MG PO SCH (09:59)
[2016-11-29] MEDS: Lasix 40 MG PO SCH (09:59)
[2016-11-29] MEDS: Tylenol #3 Tablet PO PRN ×2 (13:20→20:21)
[2016-11-29] MEDS: Levofloxacin 500MG/100ML D5W 500 MG/100 ML BAG IV SCH (14:40)
--- NOTE | 2016-11-29 17:25 | PCM.NOTE ---
Date and Time: 11/29/16 1720 Subjective Assessment: Patient reports that he continues to feel a little better. He reports some constipation. He has shortness of breath with ambulation. - Review of Systems Constitutional: No Symptoms Eyes: No Symptoms Ears, Nose, & Throat: No Symptoms Respiratory: Cough, Short Of Breath, Wheezing Cardiac: No Symptoms Abdominal/Gastrointestinal: No Symptoms Genitourinary Symptoms: No Symptoms Musculoskeletal: No Symptoms Skin: No Symptoms Objective Exam General Appearance: no apparent distress, other (on oxygen by [place]) Neurologic Exam: alert, cooperative, normal mood/affect Skin Exam: normal color, warm, dry, No rash Respiratory Exam: other (wheezes at the bases, rhonchi at bases bilat, equal breath sounds) Cardiovascular Exam: regular rate/rhythm, normal heart sounds, No friction rub, No gallop, No tachycardia Gastrointestinal/Abdomen Exam: soft, normal bowel sounds, No tenderness, No distention, No mass, No guarding Extremity Exam: other (no c/c/e) OBJECTIVE DATA Vital Signs: Vital Signs - 24 hr Temp Pulse Resp BP Pulse Ox 11/29/16 16:36 97.6 F 77 22 169/106 93 L 11/29/16 16:00 160/109 11/29/16 13:04 74 18 95 11/29/16 12:00 18 11/29/16 11:35 97.8 F 87 20 160/100 94 L 11/29/16 07:25 88 18 95 11/29/16 07:24 98.1 F 85 20 150/97 93 L 11/29/16 04:00 97.3 F 85 20 155/98 95 11/29/16 00:00 20 11/28/16 23:38 98.4 F 91 H 24 145/93 95 11/28/16 20:00 98.3 F 91 H 22 142/95 96 11/28/16 19:41 98 H 20 96 Oxygen-Last 24 hours O2 Percentage 4 Liters = 36% O2 Percentage 4 Liters = 36% O2 Percentage 4 Liters = 36% O2 Percentage 4 Liters = 36% O2 Percentage 4 Liters = 36% O2 Percentage 4 Liters = 36% Pain Assessment - Last Documented Pain Intensity 6 Pain Scale Used 0-10 Pain Scale Intake and Output: Intake & Output 11/27/16 11/28/16 11/29/16 11/30/16 06:59 06:59 06:59 06:59 Intake Total 4890 2820 2200 1920 Output Total 1750 Balance 3140 2820 2200 1920 Weight 85.1 kg Lab Results: Accuchecks Date 11/29/16 Date 11/29/16 Date 11/29/16 Date 11/28/16 Time 11:00 Time 07:30 Time 22:00 Accucheck Value: 181 Accucheck Value: 267 Accucheck Value: 240 Accucheck Value: 255 Lab Results-Last 24 Hours 11/29/16 11/29/16 Range/Units 05:14 05:14 WBC 11.3 H (4.0-10.5) K/mm3 RBC 3.79 L (4.1-5.6) M/mm3 Hgb 13.3 (12.5-18.0) gm/dl Hct 40.6 L (42-50) % MCV 107.1 H (78-100) fl MCH 35.0 H (26-32) pg MCHC 32.8 (32-36) g/dl RDW 11.5 (11.5-14.0) % Plt Count 168 (150-450) K/mm3 MPV 11.9 H (6-9.5) fl Segmented Neutrophils 91 H (36.-66.) % Band Neutrophils 2 (0.0-2.0) % Lymphocytes (Manual) 5 L (24-44) % Monocytes (Manual) 2 (0.0-12.0) % Differential Comment NORMAL Platelet Estimate NORMAL (NORMAL) Sodium 139 (136-145) mEq/L Potassium 3.8 (3.5-5.1) mEq/L Chloride 98 (98-107) mEq/L Carbon Dioxide 34.4 H (21-32) mEq/L Anion Gap 10.6 (5-15) MEQ/L BUN 19 (9-20) mg/dL Creatinine 0.92 (0.55-1.30) mg/dl Estimated GFR > 60 ML/MIN Glucose 235 H (70-110) MG/DL Calcium 9.4 (8.5-10.1) mg/dL Radiology Exams: Radiology Procedures Category Date Time Status CHEST 2 VIEWS (PA AND LAT) Routine Exams 11/28/16 Completed Multi-Disciplinary Progress Notes: Multi-Disciplinary Progress Notes 11/29/16 08:40 (created 11/29/16 16:15) Case Management Note by Bina Landon REVIEWED DISCHARGE PLAN. CONTINUES TO PLAN TO RETURN HOME WITH TO PRE EPISODIC LEVEL OF FNX. DECLINED ADDNL NEEDS FOR DISCHARGE AT PRESENT. WILL CONTINUE TO FOLLOW FOR ALL DC NEEDS. Initialized on 11/29/16 16:15 - END OF NOTE Assessment/Plan (1) Pneumonia Current Visit: Yes Status: Acute Qualifiers: Pneumonia type: aspiration pneumonia Aspiration pneumonia type: unspecified Laterality: right Lung location: unspecified part of lung Qualified Code(s): J69.0 - Pneumonitis due to inhalation of food and vomit Assessment & Plan: As below for COPD. Code(s): J18.9 - PNEUMONIA, UNSPECIFIED ORGANISM (2) COPD with exacerbation Current Visit: Yes Status: Acute Assessment & Plan: continue levofloxacin, Zosyn, oxygen, breathing treatments. Dr. Zeyad Aguirre, computer help desk representative consulted. Wean steroids to prednisone by mouth. Code(s): J44.1 - CHRONIC OBSTRUCTIVE PULMONARY DISEASE W (ACUTE) EXACERBATION (3) Acute renal failure Current Visit: Yes Status: Acute Assessment & Plan: Improving. (4) Hyperglycemia Current Visit: Yes Status: Acute Code(s): R73.9 - HYPERGLYCEMIA, UNSPECIFIED (5) Hyperglycemia, drug-induced Current Visit: Yes Status: Acute Assessment & Plan: Better controlled with higher dose of lantus and moderate dose sliding scale of short acting insulin. Code(s): R73.9 - HYPERGLYCEMIA, UNSPECIFIED (6) History of alcoholism Current Visit: Yes Status: Acute Code(s): F10.21 - ALCOHOL DEPENDENCE, IN REMISSION (7) History of pulmonary embolism Current Visit: Yes Status: Acute Assessment & Plan: Continue anticoagulation. Code(s): Z86.711 - PERSONAL HISTORY OF PULMONARY EMBOLISM (8) History of coronary artery disease Current Visit: Yes Status: Acute Code(s): Z86.79 - PERSONAL HISTORY OF OTHER DISEASES OF THE CIRCULATORY SYSTEM (9) Hypertension Current Visit: Yes Status: Acute Assessment & Plan: Nifedipine increased again today. Code(s): I10 - ESSENTIAL (PRIMARY) HYPERTENSION
[2016-11-29] MEDS ORDERED: Zestril 10 MG PO STA (17:26)
[2016-11-29] MEDS ORDERED: Catapres 0.1 MG ONE (20:17)
[2016-11-29] MEDS: Catapres 0.1 MG PO SCH ×2 (20:21→22:44)
[2016-11-29] MEDS: Nicoderm CQ 21 MG TOP SCH (20:22)
[2016-11-29] MEDS: VALIUM 10 MG/2 ML SYRINGE IV PRN (22:24)
[2016-11-30] MEDS: Zosyn 3.375GM/100 Ml D5W 3.375 GM/100 ML IVPB IV SCH ×3 (00:08→11:52)
[2016-11-30] MEDS: Catapres 0.1 MG PO SCH ×2 (00:18→04:03)
[2016-11-30] MEDS: DUONEB 0.5-3 MG/3 ml Neb IH SCH ×3 (01:32→12:59)
[2016-11-30] MEDS: Tylenol #3 Tablet PO PRN ×2 (04:04→13:30)
[2016-11-30 05:33] LABS: Eosinophil % 0.6 % (0.00-5.0); Granulocytes % 84.6 % (36.0-66.0); Lymphocytes % 9.3 % (24.0-44.0); Mean Cell Volume 105.8 fl (78-100); Mean Platelet Volume 11.6 fl (6-9.5); Monocytes % 5.5 % (0.0-12.0); Platelet Count 155 K/mm3 (150-450); Red Blood Count 3.81 M/mm3 (4.1-5.6); Red Cell Distribution Width 11.4 % (11.5-14.0); White Blood Count 10.1 K/mm3 (4.0-10.5)
[2016-11-30 05:45] LABS: ANION GAP 8.6 MEQ/L (5-15); BLOOD UREA NITROGEN 23 mg/dL (9-20); CHLORIDE 99 mEq/L (98-107); Carbon Dioxide 33.7 mEq/L (21-32); Glucose 272 MG/DL (70-110); Potassium 3.3 mEq/L (3.5-5.1); SODIUM 138 mEq/L (136-145)
[2016-11-30 06:41] LABS: Mean Corpuscular Hemoglobin 35.1 pg (26-32)
[2016-11-30] MEDS: Sodium Chloride 0.9% 10 ML FLUSH Syringe IV SCH ×2 (06:47→14:05)
[2016-11-30] MEDS: PATIENT OWN MEDICATION IH SCH (07:11)
[2016-11-30] MEDS: NovoLOG Insulin SQ PRN (07:52)
[2016-11-30] MEDS: Lantus Insulin SQ SCH (07:52)
[2016-11-30] MEDS: Colace 100 MG PO SCH (07:53)
[2016-11-30] MEDS: ELIQUIS PO SCH (07:53)
[2016-11-30] MEDS: LIBRIUM 25 MG PO SCH (07:53)
[2016-11-30] MEDS: NEURONTIN 300 MG PO SCH ×2 (07:53→14:05)
[2016-11-30] MEDS: Protonix 40MG Tablet PO SCH (07:53)
[2016-11-30] MEDS: DELTASONE 20 MG PO SCH (07:53)
[2016-11-30] MEDS: Adalat CC 30 MG TABLET PO SCH (07:54)
[2016-11-30] MEDS: Lasix 40 MG PO SCH (07:54)
[2016-11-30] MEDS: VALIUM 10 MG/2 ML SYRINGE IV PRN ×2 (08:02→14:05)
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
--- NOTE | 2016-11-30 09:24 | PCM.NOTE ---
Date and Time: 11/30/16917 Subjective Assessment: He reports he continues to feel better each day. I was under the impression that he had his own oxygen at home but he tells me he was wearing his 's oxygen during the day and then he did not have any oxygen at night. Dr. Aguirre saw him yesterday and recommended continuing his current antibiotics at this time. - Review of Systems Constitutional: No Symptoms Eyes: No Symptoms Respiratory: Cough, Short Of Breath, Wheezing Cardiac: No Symptoms Abdominal/Gastrointestinal: No Symptoms Genitourinary Symptoms: No Symptoms Musculoskeletal: No Symptoms Skin: No Symptoms Objective Exam General Appearance: no apparent distress, alert Neurologic Exam: alert, cooperative, normal mood/affect Skin Exam: normal color, warm, dry, No rash Respiratory Exam: airway intact, other (few scattered wheezes throughout, equal breath sounds), No respiratory distress, No crackles/rales, No rhonchi Cardiovascular Exam: regular rate/rhythm, normal heart sounds, No murmur, No friction rub, No gallop Gastrointestinal/Abdomen Exam: soft, normal bowel sounds, No tenderness, No distention, No mass OBJECTIVE DATA Vital Signs: Vital Signs - 24 hr Temp Pulse Resp BP Pulse Ox 11/30/16 08:00 14 11/30/16 07:15 78 14 95 11/30/16 07:09 98.1 F 84 20 130/90 93 L 11/30/16 04:00 97.7 F 91 H 24 147/85 94 L 11/30/16 01:32 88 20 96 11/30/16 00:00 97.6 F 89 20 130/81 92 L 11/29/16 20:00 22 11/29/16 19:58 97.6 F 95 H 26 H 165/111 92 L 11/29/16 19:30 91 H 22 93 L 11/29/16 16:36 97.6 F 77 22 169/106 93 L 11/29/16 16:00 160/109 11/29/16 13:04 74 18 95 11/29/16 12:00 18 11/29/16 11:35 97.8 F 87 20 160/100 94 L Oxygen-Last 24 hours O2 Percentage 4 Liters = 36% O2 Percentage 4 Liters = 36% O2 Percentage 4 Liters = 36% O2 Percentage 4 Liters = 36% O2 Percentage 4 Liters = 36% O2 Percentage 4 Liters = 36% Pain Assessment - Last Documented Pain Intensity 2 Pain Scale Used 0-10 Pain Scale Intake and Output: Intake & Output 11/28/16 11/29/16 11/30/16 12/01/16 06:59 06:59 06:59 06:59 Intake Total 2820 2200 3420 Balance 2820 2200 3420 Weight 85.1 kg Lab Results: Accuchecks Date 11/30/16 Date 11/29/16 Date 11/29/16 Date 11/29/16 Time 07:30 Time 21:00 Time 11:00 Accucheck Value: 204 Accucheck Value: 181 Accucheck Value: 267 Lab Results-Last 24 Hours 11/30/16 11/30/16 Range/Units 05:15 05:15 WBC 10.1 (4.0-10.5) K/mm3 RBC 3.81 L (4.1-5.6) M/mm3 Hgb 13.4 (12.5-18.0) gm/dl Hct 40.3 L (42-50) % MCV 105.8 H (78-100) fl MCH 35.1 H (26-32) pg MCHC 33.3 (32-36) g/dl RDW 11.4 L (11.5-14.0) % Plt Count 155 (150-450) K/mm3 MPV 11.6 H (6-9.5) fl Gran % 84.6 H (36.0-66.0) % Lymphocytes % 9.3 L (24.0-44.0) % Monocytes % 5.5 (0.0-12.0) % Eosinophils % 0.6 (0.00-5.0) % Basophils % 0.0 (0.0-0.4) % Basophils # 0 (0-0.4) Sodium 138 (136-145) mEq/L Potassium 3.3 L (3.5-5.1) mEq/L Chloride 99 (98-107) mEq/L Carbon Dioxide 33.7 H (21-32) mEq/L Anion Gap 8.6 (5-15) MEQ/L BUN 23 H (9-20) mg/dL Creatinine 1.03 (0.55-1.30) mg/dl Estimated GFR > 60 ML/MIN Glucose 272 H (70-110) MG/DL Calcium 8.9 (8.5-10.1) mg/dL Assessment/Plan (1) Pneumonia Current Visit: Yes Status: Acute Qualifiers: Pneumonia type: aspiration pneumonia Aspiration pneumonia type: unspecified Laterality: right Lung location: unspecified part of lung Qualified Code(s): J69.0 - Pneumonitis due to inhalation of food and vomit Assessment & Plan: Continue levofloxacin, zosyn, oxygen and nebulizer treatments. Will ask for home oxygen eval for before discharge. This is day 5 of antibiotics would probably benefit from a total of 7-10 days of IV zosyn. Levofloxacin changed to oral today. Importance of quitting smoking again emphasized to patient. Code(s): J18.9 - PNEUMONIA, UNSPECIFIED ORGANISM (2) COPD with exacerbation Current Visit: Yes Status: Acute Assessment & Plan: Improving. Will stop prednisone today as wheezing is much improved. Code(s): J44.1 - CHRONIC OBSTRUCTIVE PULMONARY DISEASE W (ACUTE) EXACERBATION (3) Hyperglycemia Current Visit: Yes Status: Acute Assessment & Plan: Continue lantus although may need adjusted as steroids are being discontinued. Continue to monitor blood glucoses. Hgb A1C was checked and was normal. Most likely steroid induced. Code(s): R73.9 - HYPERGLYCEMIA, UNSPECIFIED (4) Hyperglycemia, drug-induced Current Visit: Yes Status: Acute Code(s): R73.9 - HYPERGLYCEMIA, UNSPECIFIED (5) History of alcoholism Current Visit: Yes Status: Acute Code(s): F10.21 - ALCOHOL DEPENDENCE, IN REMISSION (6) History of pulmonary embolism Current Visit: Yes Status: Acute Assessment & Plan: Continue anticoagulation. Code(s): Z86.711 - PERSONAL HISTORY OF PULMONARY EMBOLISM (7) History of coronary artery disease Current Visit: Yes Status: Acute Code(s): Z86.79 - PERSONAL HISTORY OF OTHER DISEASES OF THE CIRCULATORY SYSTEM (8) Hypertension Current Visit: Yes Status: Acute Assessment & Plan: Better controlled at this time. He is now on nifedipine ER 90 mg and I added both lisionpril 10 mg daily and clonidine 0.1 mg po tid yesterday. Code(s): I10 - ESSENTIAL (PRIMARY) HYPERTENSION
[2016-11-30] MEDS ORDERED: Klor Con 10 MEQ PO ONE (09:40)
[2016-11-30] MEDS ORDERED: Levofloxacin 500 MG Tablet PO SCH (10:00)
[2016-11-30] MEDS ORDERED: Zestril 10 MG PO SCH (10:00)
[2016-11-30 11:15] VITALS: BP 135/78
[2016-11-30] MEDS ORDERED: CHLORASEPTIC SPRAY 180 ML PO SCH (13:00)
[2016-11-30 13:01] VITALS: PULSE 75; O2SAT 95
[2016-11-30] MEDS ORDERED: Catapres 0.1 MG PO SCH (14:00)
--- NOTE | 2016-12-07 11:05 | DS ---
DISCHARGE DIAGNOSES: 1) ASPIRATION PNEUMONIA. 2) CHRONIC OBSTRUCTIVE PULMONARY DISEASE WITH EXACERBATION. 3) ACUTE RENAL FAILURE. 4) HYPERGLYCEMIA. 5) HISTORY OF ALCOHOLISM. 6) HISTORY OF PULMONARY EMBOLUS. 7) HITORY OF CORONARY ARTERY DISEASE AND HYPERTENSION. DISCHARGE PHYSICAL EXAMINATION: VITALS: Temperature current 98.1F, temperature max 98.1F, heart rate 74 to 95, respiratory rate 14 to 26, blood pressure 130 to 169 over 81 to 109 currently 130/90, weight 85.1 kg. Oxygen saturation 92 to 95% on 4 liters nasal cannula. GENERAL: The patient is a pleasant talkative man sitting up in no acute distress. He is alert and oriented. LUNGS: He had a few scattered wheezes throughout with equal breath sounds. No crackles. No rhonchi. CVS: Heart had a regular rate and rhythm. No murmurs, gallops or rubs. CHEST: Clear to auscultation bilaterally. No crackles or wheezes are appreciated. ABDOMEN: Soft, nontender, nondistended with normal bowel sounds. EXTREMITIES: No clubbing, cyanosis or edema. SKIN: Warm, dry and intact. HOSPITAL COURSE: 1) ASPIRATION PNEUMONIA: He was on levofloxacin and Zosyn during his hospitalization as well as oxygen and nebulizer treatment. On the date of discharge on day five of antibiotics for him it was felt that he would benefit from at least 7 to 10 days of IV antibiotics, I will change to levofloxacin from IV to oral on the day of his discharge. I again discussed the importance of quitting smoking and we are working on weaning his oxygen and also qualifying him for home oxygen at home. Respiratory therapy reported he would qualify at night. He was discharged to swing-bed to continue IV Zosyn along with oral levofloxacin. 2) CHRONIC OBSTRUCTIVE PULMONARY DISEASE WITH EXACERBATION: He was initially on IV steroids and that was weaned to prednisone and then on the day of his discharge I stopped the prednisone as his wheezing was much improved and the steroids were causing hyperglycemia. 3) HYPERGLYCEMIA: His hemoglobin A1C was checked during his hospitalization and was normal. His Lantus was continued but may need adjusted as the steroids are being discontinued. They are going to continue to monitor his glucose. 4) HISTORY OF ALCOHOLISM: He did not display any signs of withdrawal during his hospital stay. The patient had reported that he quit drinking approximately four weeks before his most current admission. 5) HISTORY OF PULMONARY EMBOLISM: He was continued on his home medication for anticoagulation. 6) HISTORY OF CORONARY ARTERY DISEASE: He was continued on his home medications. 7) HYPERTENSION: At the time of discharge he was on Nifedipine Extended Release 90 mg daily and lisinopril 10 mg daily and clonidine 0.1 mg p.o. t.i.d. His blood pressure is well controlled at the time of discharge. DISCHARGE MEDICATIONS: Please see the discharge order. DISPOSITION: The patient was discharged to swing-bed.
== END 2016-11-30 15:30 | disposition swing bed (61) | DRG 177 ==
LOC: ED 15:42 → ICU 17:01 → MED SURG 11-26 13:40
PROVIDERS: ADMIT Family Medicine; ATTEND Family Medicine
DX: J69.0 Pneumonitis due to inhalation of food and vomit (principal); I26.99 Other pulmonary embolism without acute cor pulmonale; N17.9 Acute kidney failure, unspecified; J44.1 Chronic obstructive pulmonary disease with (acute) exacerbation; K86.0 Alcohol-induced chronic pancreatitis; R09.02 Hypoxemia; R73.9 Hyperglycemia, unspecified; F10.21 Alcohol dependence, in remission; R25.1 Tremor, unspecified; Z86.711 Personal history of pulmonary embolism; Z79.01 Long term (current) use of anticoagulants; I25.10 Atherosclerotic heart disease of native coronary artery without angina pectoris; I10 Essential (primary) hypertension; K76.0 Fatty (change of) liver, not elsewhere classified; R16.1 Splenomegaly, not elsewhere classified; M19.90 Unspecified osteoarthritis, unspecified site; B19.20 Unspecified viral hepatitis C without hepatic coma; Z79.899 Other long term (current) drug therapy; Z87.891 Personal history of nicotine dependence; Z86.73 Personal history of transient ischemic attack (TIA), and cerebral infarction without residual deficits
CPT/HCPCS: 36415; 36600; 51702; 71010; 71020; 80048; 80053; 81002; 82375; 82803; 82947; 82962; 83036; 83605; 83735; 83880; 84484; 85025; 85379; 87040; 87086; 93005; 93041; 94002; 94003; 94640; 94760; 94770; 96360; 96361; 96365; 96367; 99285; J0456; J0696; J1956; J2543; J2920; J2930; J3360; A9270-GY; J7506

== ENCOUNTER 2016-11-30 15:30 | Inpatient (IN) | payer MEDICARE ==
[2016-11-30] MEDS ORDERED: PROVENTIL COMMON CANISTER IH PRN (16:03)
[2016-11-30] MEDS ORDERED: LIBRIUM 25 MG PO SCH (16:03)
[2016-11-30] MEDS ORDERED: TYLENOL 325 MG PO PRN (16:03)
[2016-11-30] MEDS ORDERED: solu-MEDROL 125 MG IV ONE (16:03)
[2016-11-30] MEDS: Nicoderm CQ 21 MG TOP SCH (16:39)
[2016-11-30] MEDS: NovoLOG Insulin SQ PRN ×2 (16:39→21:32)
[2016-11-30] MEDS: Zosyn 3.375GM/100 Ml D5W 3.375 GM/100 ML IVPB IV SCH ×2 (17:16→23:29)
[2016-11-30] MEDS: CHLORASEPTIC SPRAY 180 ML PO SCH ×2 (17:17→21:03)
[2016-11-30] MEDS: DUONEB 0.5-3 MG/3 ml Neb IH SCH (19:18)
[2016-11-30] MEDS: Tylenol #3 Tablet PO PRN (19:54)
[2016-11-30] MEDS: NEURONTIN 300 MG PO SCH (21:02)
[2016-11-30] MEDS: Colace 100 MG PO SCH (21:02)
[2016-11-30] MEDS: ELIQUIS PO SCH (21:02)
[2016-11-30] MEDS: Catapres 0.1 MG PO SCH (21:03)
[2016-11-30] MEDS: VALIUM 10 MG/2 ML SYRINGE IV PRN (21:32)
[2016-11-30] MEDS: Sodium Chloride 0.9% 10 ML FLUSH Syringe IV SCH (22:36)
[2016-12-01] MEDS: DUONEB 0.5-3 MG/3 ml Neb IH SCH ×4 (01:27→19:02)
[2016-12-01] MEDS: Catapres 0.1 MG PO SCH ×3 (05:18→22:14)
[2016-12-01] MEDS: Zosyn 3.375GM/100 Ml D5W 3.375 GM/100 ML IVPB IV SCH ×3 (05:18→18:33)
[2016-12-01] MEDS: Tylenol #3 Tablet PO PRN ×4 (05:20→22:38)
[2016-12-01] MEDS: Sodium Chloride 0.9% 10 ML FLUSH Syringe IV SCH ×3 (05:42→22:45)
[2016-12-01] MEDS: PATIENT OWN MEDICATION IH SCH (06:50)
[2016-12-01] MEDS: VALIUM 10 MG/2 ML SYRINGE IV PRN (06:55)
[2016-12-01] MEDS: Lantus Insulin SQ SCH (07:55)
[2016-12-01] MEDS ORDERED: FLUCELVAX QUAD 2017-2018 SYR IM ONE (10:00)
[2016-12-01] MEDS ORDERED: Aplisol ID SCH (10:00)
[2016-12-01] MEDS: Adalat CC 30 MG TABLET PO SCH (10:11)
[2016-12-01] MEDS: CHLORASEPTIC SPRAY 180 ML PO SCH ×4 (10:12→22:14)
[2016-12-01] MEDS: Colace 100 MG PO SCH ×2 (10:12→22:15)
[2016-12-01] MEDS: ELIQUIS PO SCH ×2 (10:12→22:14)
[2016-12-01] MEDS: Levofloxacin 500 MG Tablet PO SCH (10:12)
[2016-12-01] MEDS: NEURONTIN 300 MG PO SCH ×3 (10:12→22:14)
[2016-12-01] MEDS: Zestril 10 MG PO SCH (10:12)
[2016-12-01] MEDS: Protonix 40MG Tablet PO SCH (10:12)
[2016-12-01] MEDS: Lasix 40 MG PO SCH (10:12)
[2016-12-01] MEDS: Valium 5 MG PO PRN ×3 (12:21→22:38)
[2016-12-01] MEDS: Nicoderm CQ 21 MG TOP SCH (16:27)
[2016-12-01] MEDS: NovoLOG Insulin SQ PRN ×2 (16:28→20:46)
[2016-12-02] MEDS: Zosyn 3.375GM/100 Ml D5W 3.375 GM/100 ML IVPB IV SCH ×5 (00:25→23:14)
[2016-12-02] MEDS: DUONEB 0.5-3 MG/3 ml Neb IH SCH ×4 (01:10→18:40)
[2016-12-02] MEDS: Sodium Chloride 0.9% 10 ML FLUSH Syringe IV SCH ×3 (05:00→21:28)
[2016-12-02] MEDS: Catapres 0.1 MG PO SCH ×3 (05:19→21:27)
[2016-12-02] MEDS: Valium 5 MG PO PRN ×3 (05:44→18:56)
[2016-12-02] MEDS: Tylenol #3 Tablet PO PRN ×3 (05:44→18:56)
[2016-12-02] MEDS: PATIENT OWN MEDICATION IH SCH (05:58)
[2016-12-02] MEDS: CHLORASEPTIC SPRAY 180 ML PO SCH ×4 (07:52→21:27)
[2016-12-02] MEDS: Lantus Insulin SQ SCH (07:53)
[2016-12-02] MEDS: NovoLOG Insulin SQ PRN ×2 (07:55→17:25)
[2016-12-02] MEDS: Lasix 40 MG PO SCH (09:20)
[2016-12-02] MEDS: Colace 100 MG PO SCH ×2 (09:20→21:28)
[2016-12-02] MEDS: Levofloxacin 500 MG Tablet PO SCH (09:21)
[2016-12-02] MEDS: Protonix 40MG Tablet PO SCH (09:21)
[2016-12-02] MEDS: NEURONTIN 300 MG PO SCH ×3 (09:21→21:28)
[2016-12-02] MEDS: Adalat CC 30 MG TABLET PO SCH (09:21)
[2016-12-02] MEDS: Zestril 10 MG PO SCH (09:21)
[2016-12-02] MEDS: ELIQUIS PO SCH ×2 (09:21→21:28)
[2016-12-02] MEDS: Nicoderm CQ 21 MG TOP SCH (16:56)
[2016-12-03] MEDS: DUONEB 0.5-3 MG/3 ml Neb IH SCH ×4 (00:35→19:29)
[2016-12-03] MEDS: Valium 5 MG PO PRN ×4 (01:37→19:46)
[2016-12-03] MEDS: Tylenol #3 Tablet PO PRN ×4 (01:37→19:46)
[2016-12-03] MEDS: Zosyn 3.375GM/100 Ml D5W 3.375 GM/100 ML IVPB IV SCH ×4 (05:20→23:25)
[2016-12-03] MEDS: Catapres 0.1 MG PO SCH ×3 (05:20→21:25)
[2016-12-03] MEDS: Sodium Chloride 0.9% 10 ML FLUSH Syringe IV SCH ×3 (05:20→21:26)
[2016-12-03] MEDS: PATIENT OWN MEDICATION IH SCH (07:01)
[2016-12-03] MEDS: Lantus Insulin SQ SCH (07:37)
[2016-12-03] MEDS: Adalat CC 30 MG TABLET PO SCH (10:51)
[2016-12-03] MEDS: Lasix 40 MG PO SCH (10:52)
[2016-12-03] MEDS: Colace 100 MG PO SCH ×2 (10:52→21:24)
[2016-12-03] MEDS: ELIQUIS PO SCH ×2 (10:52→21:24)
[2016-12-03] MEDS: CHLORASEPTIC SPRAY 180 ML PO SCH ×4 (10:52→21:23)
[2016-12-03] MEDS: Levofloxacin 500 MG Tablet PO SCH (10:53)
[2016-12-03] MEDS: Protonix 40MG Tablet PO SCH (10:53)
[2016-12-03] MEDS: Zestril 10 MG PO SCH (10:53)
[2016-12-03] MEDS: NEURONTIN 300 MG PO SCH ×3 (10:53→21:24)
[2016-12-03] MEDS: Nicoderm CQ 21 MG TOP SCH (15:39)
[2016-12-03] MEDS: NovoLOG Insulin SQ PRN (22:28)
[2016-12-04] MEDS: DUONEB 0.5-3 MG/3 ml Neb IH SCH ×4 (01:21→18:55)
[2016-12-04] MEDS: Tylenol #3 Tablet PO PRN ×4 (01:45→22:41)
[2016-12-04] MEDS: Valium 5 MG PO PRN ×4 (01:46→21:10)
[2016-12-04] MEDS: Catapres 0.1 MG PO SCH ×3 (06:08→21:09)
[2016-12-04] MEDS: Zosyn 3.375GM/100 Ml D5W 3.375 GM/100 ML IVPB IV SCH ×3 (07:06→18:00)
[2016-12-04] MEDS: Sodium Chloride 0.9% 10 ML FLUSH Syringe IV SCH ×3 (07:06→21:13)
[2016-12-04] MEDS: Lantus Insulin SQ SCH (07:57)
[2016-12-04] MEDS: NovoLOG Insulin SQ PRN ×2 (07:57→17:11)
[2016-12-04] MEDS: Lasix 40 MG PO SCH (07:58)
[2016-12-04] MEDS: ELIQUIS PO SCH ×2 (07:58→21:10)
[2016-12-04] MEDS: Adalat CC 30 MG TABLET PO SCH (07:58)
[2016-12-04] MEDS: NEURONTIN 300 MG PO SCH ×3 (07:59→21:09)
[2016-12-04] MEDS: Protonix 40MG Tablet PO SCH (07:59)
[2016-12-04] MEDS: Zestril 10 MG PO SCH (07:59)
[2016-12-04] MEDS: Levofloxacin 500 MG Tablet PO SCH (07:59)
[2016-12-04] MEDS: CHLORASEPTIC SPRAY 180 ML PO SCH ×4 (07:59→21:09)
[2016-12-04] MEDS: Colace 100 MG PO SCH ×2 (07:59→21:12)
[2016-12-04] MEDS: Nicoderm CQ 21 MG TOP SCH (16:00)
[2016-12-05] MEDS: Zosyn 3.375GM/100 Ml D5W 3.375 GM/100 ML IVPB IV SCH ×2 (00:16→06:25)
[2016-12-05] MEDS: DUONEB 0.5-3 MG/3 ml Neb IH SCH ×2 (00:57→08:06)
[2016-12-05] MEDS: Valium 5 MG PO PRN ×2 (04:24→11:12)
[2016-12-05] MEDS: Tylenol #3 Tablet PO PRN ×2 (04:36→11:12)
[2016-12-05 05:27] LABS: Mean Cell Volume 104.4 fl (78-100); Mean Corpuscular Hemoglobin 35.6 pg (26-32); Mean Platelet Volume 10.8 fl (6-9.5); Platelet Count 187 K/mm3 (150-450); Red Blood Count 4.07 M/mm3 (4.1-5.6); Red Cell Distribution Width 12.1 % (11.5-14.0); White Blood Count 11.7 K/mm3 (4.0-10.5)
[2016-12-05 05:49] LABS: ANION GAP 10.9 MEQ/L (5-15); Carbon Dioxide 31.4 mEq/L (21-32); Potassium 4.6 mEq/L (3.5-5.1)
[2016-12-05] MEDS: Catapres 0.1 MG PO SCH (06:26)
[2016-12-05 07:32] LABS: BAND 2 % (0.0-2.0); Eosinophil 2 % (0.00-3.0); Total Cells Counted 100
[2016-12-05 07:33] LABS: Platelet Estimate NORMAL (NORMAL)
--- NOTE | 2016-12-05 07:46 | PCM.DCORD ---
- Discharge Discharge Date: 12/05/16 Disposition: Home, Self-Care Condition: Stable Prescriptions: New Insulin Glargine,Hum.rec.anlog [Basaglar Kwikpen U-100] 20 unit SQ DAILY #5 insuln.pen Clonidine HCl 0.1 mg [Catapres 0.1 MG] 0.1 mg PO Q8HT #90 tablet Docusate Sodium 100 mg [Colace 100 MG] 100 mg PO BID #60 capsule Pen Needle, Diabetic [Pen [place]] 1 each MC DAILY #50 dis.needle Nifedipine [Procardia Xl] 90 mg PO DAILY #30 tab.er.24 Lisinopril 10 mg [Zestril 10 MG] 10 mg PO DAILY #30 tablet Continue Potassium Chloride [K-Dur] 10 meq PO BID #60 tab.er.prt Albuterol Common Canister [Proventil Common Canister] 1 puff IH QID PRN Fluticasone/Vilanterol [Breo Ellipta 200-25 Mcg INH] 1 each IH DAILY #1 blst.w.dev Apixaban [Eliquis] 5 mg PO BID #60 tablet Gabapentin 300 mg PO TID #90 capsule Magnesium Oxide 400 mg [Mag-Ox 400] 800 mg PO BID #120 tablet Omeprazole 20 MG [Prilosec 20 mg] 20 mg PO DAILY #30 capsule. Tramadol HCl 50 mg PO Q4H PRN #18 tablet PRN Reason: Pain Furosemide 40 mg [Lasix 40 MG] 40 mg PO DAILY Discontinued Amox Tr/Potass Clav. 875 mg [Augmentin 875-125 Tablet] 875 mg PO Q12H # 10 tablet Clonidine HCl 0.2 mg PO TID #90 tablet Prednisone 20 mg [Deltasone 20 mg] 40 mg PO DAILY #13 tablet Chlordiazepoxide HCl 25 mg [Librium 25 mg] 25 mg PO DAILY #9 capsule Follow up with: SHWETHA ULLOA [ACTIVE STAFF] - 12/21/16 9:30 am ([facility]) AMBREEN PADILLA [Primary Care Provider] - 1 Week
--- NOTE | 2016-12-05 07:54 | PCM.DS ---
Discharge Summary Date of Admission: 11/30/16 15:30 Date of Discharge: 12/05/16 Admitting Physician: AMBREEN PADILLA Primary Care Provider: AMBREEN PADILLA Allergies Allergies No Known Drug Allergies Allergy (Verified 11/13/16 03:08) Hospital Summary - Hospital Course Hospital Course: Mr. Palma has COPD and history of alcoholism and was attempting to quit drinking and came to ED with a seizure. He was discharged home with librium. He subsequently developed pneumonia and copd exacerbation and was treated in the hospital with sputum cultures positive for H. influenza and finished coarse of augmentin and prednisone. After discharge he was found on the floor at his home unresponsive but breathing and brought to the ER where he was found to have aspiration pneumonia. He did not require any resuscitation but was placed on bipap and treated with Zosyn and Levaquin and pulmonology Dr. Ulloa was consulted. He was weaned from the oxygen during the day but required it at night. With the severity of his breathing difficulty and recurrent pneumonia he was treated with 10 days of IV zosyn and levaquin in swing bed and his stamina was improving. He did have hyperglycemia throughout the stay even 1 week after stopping the prednisone. He was placed on lantus and sliding scale novolog. The lantus kept the sugar under better control at 20 Units with no lows. Given his history of recurrent pancreatitis he is kept on lantus at this time and will monitor his sugar closely at home as his A1c was within normal limits on arrival. His blood pressure medication was titrated, and he no longer required any medication for his alcohol withdrawal. He had intermittent tremors that are improving. He is ambulating better and has not had any syncopal episodes throughout his inpatient or swing bed stay. He is no longer short of breath but O2 does drop with sleeping into upper 80's and to 88% last night requiring 2L nc O2 hs. He has f/u arranged with pulmonology and is anxious to get back home after his prolonged hospital stay. He was educated on smoking cessation, his medications, and continued alcohol abstinence. - Vitals & Intake/Output Vital Signs: Vital Signs Temperature 98.2 F 12/05/16 06:33 Pulse Rate 99 H 12/05/16 06:33 Respiratory Rate 18 12/05/16 06:33 Blood Pressure 124/80 12/05/16 06:33 O2 Sat by Pulse Oximetry 94 L 12/05/16 06:33 Oxygen-Last Documented O2 Percentage 2 Liters = 28% Intake & Output: Intake & Output 12/02/16 12/03/16 12/04/16 12/05/16 11:59 11:59 11:59 11:59 Intake Total 2480 3940 3200 1740 Balance 2480 3940 3200 1740 - Lab Result Diagrams: 12/05/16 05:06 12/05/16 05:06 Lab Results-Last 24 Hrs: Accuchecks Date 12/04/16 Date 12/04/16 Date 12/04/16 Time 22:00 Time 16:30 Time 11:30 Accucheck Value: 119 Accucheck Value: 141 Accucheck Value: 203 Accucheck Value: 100 Lab Results-Last 24 Hours 12/05/16 12/05/16 Range/Units 05:06 05:06 WBC 11.7 H (4.0-10.5) K/mm3 RBC 4.07 L (4.1-5.6) M/mm3 Hgb 14.5 (12.5-18.0) gm/dl Hct 42.5 (42-50) % MCV 104.4 H (78-100) fl MCH 35.6 H (26-32) pg MCHC 34.1 (32-36) g/dl RDW 12.1 (11.5-14.0) % Plt Count 187 (150-450) K/mm3 MPV 10.8 H (6-9.5) fl Segmented Neutrophils 81 H (36.-66.) % Band Neutrophils 2 (0.0-2.0) % Lymphocytes (Manual) 14 L (24-44) % Monocytes (Manual) 1 (0.0-12.0) % Eosinophils (Manual) 2 (0.00-3.0) % Differential Comment NORMAL Platelet Estimate NORMAL (NORMAL) Sodium 136 (136-145) mEq/L Potassium 4.6 (3.5-5.1) mEq/L Chloride 98 (98-107) mEq/L Carbon Dioxide 31.4 (21-32) mEq/L Anion Gap 10.9 (5-15) MEQ/L BUN 18 (9-20) mg/dL Creatinine 1.47 H (0.55-1.30) mg/dl Estimated GFR 54 ML/MIN Glucose 149 H (70-110) MG/DL Calcium 9.5 (8.5-10.1) mg/dL Micro Results-Entire Visit: Accuchecks Date 12/04/16 Date 12/04/16 Date 12/04/16 Time 22:00 Time 16:30 Time 11:30 Accucheck Value: 119 Accucheck Value: 141 Accucheck Value: 203 Accucheck Value: 100 - Procedures and Test Procedures and Tests throughout Hospitalization: Therapy Orders & Screens 11/30/16 16:02 RT Miscellaneous Order ROUTINE Comment: Physician Instructions: titrate O2 to keep SPO2 >92% Reason For Exam: Diagnosis: Deconditioning r/t sob 11/30/16 16:21 Respiratory Nebulizer Q6H Comment: duoneb q6 Diagnosis: Deconditioning r/t sob 11/30/16 16:22 Oxygen NASAL CANNULA 2 lpm Comment: wean as tolerated Diagnosis: Deconditioning r/t sob 12/01/16 07:00 Respiratory MDI DAILY Comment: BREO DAILY, ALBUTEROL MDI PRN Diagnosis: Deconditioning r/t sob 12/05/16 07:46 Qualify for Home Oxygen TODAY Comment: Diagnosis: Deconditioning r/t sob Discharge Exam General Appearance: no apparent distress, alert Neurologic Exam: alert, oriented x 3, cooperative, normal mood/affect, nml cerebellar function, sensation nml, other (mild intermittent samuel UE essential tremors), No motor deficits Skin Exam: normal color, warm, dry Eye Exam: PERRL, EOMI, eyes nml inspection Ears, Nose, Throat Exam: normal ENT inspection, pharynx normal, moist mucous membranes Neck Exam: normal inspection, non-tender, supple, full range of motion Respiratory Exam: rhonchi (bibasilar), No respiratory distress Cardiovascular Exam: regular rate/rhythm, normal heart sounds Gastrointestinal/Abdomen Exam: soft, normal bowel sounds, No tenderness, No distention, No mass, No guarding Extremity Exam: normal inspection, normal range of motion Back Exam: normal inspection, normal range of motion, No CVA tenderness, No vertebral tenderness Male Genitalia Exam: deferred Rectal Exam: deferred Final Diagnosis/Problem List - Final Discharge Diagnosis/Problem (1) Pneumonia Current Visit: Yes Status: Acute (2) COPD (chronic obstructive pulmonary disease) Current Visit: Yes Status: Chronic (3) Acute renal failure Current Visit: Yes Status: Acute (4) Hyperglycemia Current Visit: Yes Status: Acute (5) History of alcoholism Current Visit: Yes Status: Chronic (6) History of pulmonary embolism Current Visit: Yes Status: Chronic (7) History of coronary artery disease Current Visit: Yes Status: Chronic (8) Hypertension Current Visit: Yes Status: Chronic (9) Chronic hypoxemic respiratory failure Current Visit: Yes Status: Chronic - Discharge Discharge Date: 12/05/16 Disposition: Home, Self-Care Condition: Stable Prescriptions: New Insulin Glargine,Hum.rec.anlog [Basaglar Kwikpen U-100] 20 unit SQ DAILY #5 insuln.pen Clonidine HCl 0.1 mg [Catapres 0.1 MG] 0.1 mg PO Q8HT #90 tablet Docusate Sodium 100 mg [Colace 100 MG] 100 mg PO BID #60 capsule Pen Needle, Diabetic [Pen [place]] 1 each MC DAILY #50 dis.needle Nifedipine [Procardia Xl] 90 mg PO DAILY #30 tab.er.24 Lisinopril 10 mg [Zestril 10 MG] 10 mg PO DAILY #30 tablet Continue Potassium Chloride [K-Dur] 10 meq PO BID #60 tab.er.prt Albuterol Common Canister [Proventil Common Canister] 1 puff IH QID PRN Fluticasone/Vilanterol [Breo Ellipta 200-25 Mcg INH] 1 each IH DAILY #1 blst.w.dev Apixaban [Eliquis] 5 mg PO BID #60 tablet Gabapentin 300 mg PO TID #90 capsule Magnesium Oxide 400 mg [Mag-Ox 400] 800 mg PO BID #120 tablet Omeprazole 20 MG [Prilosec 20 mg] 20 mg PO DAILY #30 capsule. Tramadol HCl 50 mg PO Q4H PRN #18 tablet PRN Reason: Pain Furosemide 40 mg [Lasix 40 MG] 40 mg PO DAILY Discontinued Amox Tr/Potass Clav. 875 mg [Augmentin 875-125 Tablet] 875 mg PO Q12H # 10 tablet Clonidine HCl 0.2 mg PO TID #90 tablet Prednisone 20 mg [Deltasone 20 mg] 40 mg PO DAILY #13 tablet Chlordiazepoxide HCl 25 mg [Librium 25 mg] 25 mg PO DAILY #9 capsule Follow up with: SHWETHA ULLOA [ACTIVE STAFF] - 12/21/16 9:30 am ([facility]) AMBREEN PADILLA [Primary Care Provider] - 1 Week
[2016-12-05] MEDS: Lantus Insulin SQ SCH (08:19)
[2016-12-05 08:27] VITALS: PULSE 100; O2SAT 92
[2016-12-05] MEDS: Levofloxacin 500 MG Tablet PO SCH (09:42)
[2016-12-05] MEDS: Colace 100 MG PO SCH (09:42)
[2016-12-05] MEDS: NEURONTIN 300 MG PO SCH (09:42)
[2016-12-05] MEDS: Protonix 40MG Tablet PO SCH (09:42)
[2016-12-05] MEDS: Adalat CC 30 MG TABLET PO SCH (09:42)
[2016-12-05] MEDS: Zestril 10 MG PO SCH (09:42)
[2016-12-05] MEDS: Lasix 40 MG PO SCH (09:42)
[2016-12-05] MEDS: ELIQUIS PO SCH (09:42)
[2016-12-05] MEDS: CHLORASEPTIC SPRAY 180 ML PO SCH (09:43)
[2016-12-05] MEDS: Sodium Chloride 0.9% 10 ML FLUSH Syringe IV SCH (11:13)
[2016-12-05 11:19] VITALS: BP 113/79
[2016-12-11] MEDS ORDERED: Aplisol ID SCH (10:00)
== END 2016-12-05 12:40 | disposition home or self-care (01) | DRG 194 ==
LOC: MED SURG 15:30
PROVIDERS: ADMIT Family Medicine; ATTEND Family Medicine
DX: J18.9 Pneumonia, unspecified organism (principal); N17.9 Acute kidney failure, unspecified; J96.11 Chronic respiratory failure with hypoxia; J44.9 Chronic obstructive pulmonary disease, unspecified; R73.9 Hyperglycemia, unspecified; F10.20 Alcohol dependence, uncomplicated; Z86.711 Personal history of pulmonary embolism; I25.10 Atherosclerotic heart disease of native coronary artery without angina pectoris; I10 Essential (primary) hypertension; Z79.01 Long term (current) use of anticoagulants; Z79.899 Other long term (current) drug therapy
CPT/HCPCS: 36415; 80048; 82962; 85025; 94640; 94760; 94761; 94762; J2543; J2930; J3360; 90682; A9270-GY

== ENCOUNTER 2017-03-22 17:28 | Inpatient (IN) | payer MEDICARE ==
[2017-03-22] MEDS ORDERED: Sodium Chloride 0.9% 1000 ML 1,000 ML ONE (18:01)
[2017-03-22 18:02] LABS: Lactic Acid > 20.0 (0.4-2.0)
[2017-03-22 18:03] LABS: BASOPHIL % 0.7 % (0.0-0.4); Basophil (Absolute #) 0.04 (0-0.4); Eosinophil (Absolute #) 0 (0-0.5); Granulocyte Absolute (ANC) 4.48 (1.4-6.9); Granulocytes % 76.2 % (36.0-66.0); Hematocrit 47.5 % (42-50); Hemoglobin 16.3 gm/dl (12.5-18.0); Lymphocytes % 13.6 % (24.0-44.0); Mean Cell Volume 97.5 fl (78-100); Mean Corpuscular Hemoglobin 33.5 pg (26-32); Mean Corpuscular Hgb Concent. 34.3 g/dl (32-36); Mean Platelet Volume 11.9 fl (6-9.5); Monocyte (Absolute #) 0.56 (0.0-1.3); Monocytes % 9.5 % (0.0-12.0); Platelet Count 44 K/mm3 (150-450); Red Blood Count 4.87 M/mm3 (4.1-5.6); Red Cell Distribution Width 13.3 % (11.5-14.0); White Blood Count 5.9 K/mm3 (4.0-10.5)
[2017-03-22] MEDS ORDERED: Sodium Chloride 0.9% 1000 ML 1,000 ML IV STA ×2 (18:05→22:46)
--- NOTE | 2017-03-22 18:12 | ERPHSYRPT ---
- History of Present Illness Source: patient Patient Subjective Stated Complaint: pt brought in by family for shortness of breath, weakness, and alc. withdrawl, unsure for how long, has been on a binge drinking and has not had anything to drink for 16 hours. Triage Nursing Assessment: pt alert, skin w/d pale. resp labored with excertion , no edema noted, needed assist of one for transfer,incont of urine, Timing/Duration: day(s) (2-3 present), intermittent Activities at Onset: activity (worsens), rest (improves) Severity of Dyspnea-Max: moderate Severity of Dyspnea-Current: moderate Possible Cause: occasional episodes Modifying Factors: Improves With: nothing Associated Symptoms: intermittent, cough, chest pain/discomfort, fever, wheezing , chills, dizziness, lightheadedness, productive cough, No edema, No loss of appetite, No lightheadedness, No weakness, No ankle swelling, No muscle spasms feet, No painful breathing, No sweating, No tightness, No tingling face, No tingling hands International travel in last 2 weeks: No Hx Tetanus, Diphtheria Vaccination/Date Given: Yes (UNKNOWN) Hx Influenza Vaccination/Date Given: Yes Hx Pneumococcal Vaccination/Date Given: Yes Immunizations Up to Date: Yes <AMBREEN GUSTAFSON - Last Filed: 03/22/17 19:11> <MASHA SOUSA - Last Filed: 03/22/17 22:57> - History of Present Illness Time Seen by Provider: 03/22/17 18:06 Physician History: patient presents with cough and shortness of breath for 3 days. Patient admits to drinking a fifth of hard liquor a day for the past month and states his last drink was yesterday. Patient with productive cough with yellowish white sputum , along with shortness of breath, dizziness, weakness, fever and chills. Patient to stop taking his blood pressure medicine, his insulin and any other medicines that he was using for the past one month. Patient states he has right sided chest pain/fullness which she thinks is due to the pneumonia. Patient denies any palpitation, diaphoresis, nausea or vomiting. patient with previous pneumonia but he does not remember when. (AMBREEN GUSTAFSON) Allergies/Adverse Reactions: No Known Drug Allergies Allergy (Verified 03/22/17 17:45) Home Medications: Albuterol Common Canister [Proventil Common Canister] 1 puff IH QID PRN [History] - Review of Systems Constitutional: No Fever, No Chills Eyes: No Symptoms Ears, Nose, & Throat: No Symptoms Respiratory: Cough, Dyspnea, Wheezing, No Dyspnea on Exertion (SALEH) Cardiac: No Chest Pain, No Edema, No Syncope Abdominal/Gastrointestinal: No Symptoms, No Abdominal Pain, No Nausea, No Vomiting, No Diarrhea Genitourinary Symptoms: No Symptoms, No Dysuria Musculoskeletal: No Symptoms, No Back Pain, No Neck Pain Skin: No Symptoms, No Rash Neurological: No Symptoms, No Dizziness, No Focal Weakness, No Sensory Changes Psychological: No Symptoms Endocrine: No Symptoms All Other Systems: Reviewed and Negative <AMBREEN GUSTAFSON - Last Filed: 03/22/17 19:11> - Past Medical History Pertinent Past Medical History: Yes Neurological History: TIA ENT History: No Pertinent History Cardiac History: Coronary Artery Disease, Hypertension Respiratory History: COPD Endocrine Medical History: No Pertinent History Musculoskeletal History: Degenerative Disk Disease, Osteoarthritis, Other GI Medical History: Hepatitis, Pancreatitis History: No Pertinent History Psycho-Social History: No Pertinent History Male Reproductive Disorders: No Pertinent History Other Medical History: CARDIAC BLOCKAGE, Hepatitis C, alcoholism - Past Surgical History Past Surgical History: Yes Neuro Surgical History: No Pertinent History Cardiac: No Pertinent History Respiratory: No Pertinent History Gastrointestinal: No Pertinent History Genitourinary: No Pertinent History Musculoskeletal: Orthopedic Surgery Male Surgical History: No Pertinent History Other Surgical History: NECK SURG IN MAR 2013, Lower back surgery x 2 in 1991, sinus surgery - Social History Smoking Status: Current every day smoker How long have you smoked: 3 Exposure to second hand smoke: Yes Drug Use: none Patient Lives Alone: No <AMBREEN GUSTAFSON - Last Filed: 03/22/17 19:11> - Physical Exam General Appearance: no apparent distress, alert, other (Unkept, cachetic) Eye Exam: PERRL/EOMI Ears, Nose, Throat Exam: hearing grossly normal, normal ENT inspection Neck Exam: normal inspection, supple Respiratory Exam: diminished breath sounds, prolonged expirations Cardiovascular/Chest Exam: normal heart sounds, regular rate/rhythm Abdominal/Gastrointestinal Exam: soft, No tenderness, No distention, No mass Extremity Exam: non-tender, normal range of motion, normal inspection, no calf tenderness, no pedal edema Peripheral Pulses Exam: carotid (R): 2+, carotid (L): 2+ Neurologic Exam: alert, oriented x 3, cooperative, 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, sensation nml, No motor deficits Skin Exam: normal color, warm, No dry SpO2: 99 Oxygen Delivery: Room Air <AMBRENE GUSTAFSON - Last Filed: 03/22/17 19:11> - Physical Exam SpO2 Interpretation: normal <MASHA SOUSA - Last Filed: 03/22/17 22:57> - Nursing Vital Signs Nursing Vital Signs: Initial Vital Signs Temperature 97.3 F 03/22/17 17:39 Pulse Rate 110 H 03/22/17 17:39 Respiratory Rate 16 03/22/17 17:39 Blood Pressure 138/100 03/22/17 17:39 O2 Sat by Pulse Oximetry 99 03/22/17 17:39 Pain Scale Pain Intensity 0 - Course Nursing assessment & vital signs reviewed: Yes <AMBREEN GUSTAFSON - Last Filed: 03/22/17 19:11> - CT Exams Chest CT Interpretation: Negative, Other (no large central PE, negative) Abdomen/Pelvis CT Interpretation: Other (distended gallbladder, no stones, or inflammatory changes) <MASHA SOUSA - Last Filed: 03/22/17 22:57> Ordered Tests: Active Orders 24 hr Category Date Time Status Admission/Status Order ROUTINE Care 03/22/17 22:48 Ordered Code Status Order ROUTINE Care 03/22/17 22:48 Ordered EKG-ER Only STAT Care 03/22/17 17:42 Active Fall Protocol ROUTINE Care 03/22/17 22:49 Ordered IV Care Q6H Care 03/22/17 22:48 Ordered Clear Liquid Diet 03/22/17 Breakfast Ordered ABDOMEN AND PELVIS W CONTRAST [CT] Stat Exams 03/22/17 19:43 Taken CHEST 1 VIEW (PORTABLE) Stat Exams 03/22/17 17:43 Taken CHEST WITH CONTRAST [CT] Stat Exams 03/22/17 19:43 Taken ABG [ARTERIAL BLOOD GASES] Stat Lab 03/22/17 22:21 Completed BLOOD CULTURE Stat Lab 03/22/17 18:19 Received BMP AM.LAB Lab 03/23/17 04:00 Ordered BNP [NT PRO BNP] Stat Lab 03/22/17 17:50 Completed CBC W DIFF AM.LAB Lab 03/23/17 04:00 Ordered CBC W DIFF Stat Lab 03/22/17 17:45 Completed CMP Stat Lab 03/22/17 17:50 Completed CULTURE,URINE Stat Lab 03/22/17 19:50 Received D-DIMER QUANTITATION Stat Lab 03/22/17 17:50 Completed ETHYL ALCOHOL Stat Lab 03/22/17 17:50 Completed LIPASE Stat Lab 03/22/17 22:00 Completed Lactic Acid Stat Lab 03/22/17 17:42 Completed Lactic Acid Stat Lab 03/22/17 21:48 Results MAGNESIUM Stat Lab 03/22/17 22:00 Completed TROPONIN Q3H Lab 03/22/17 17:40 Completed TROPONIN Q3H Lab 03/22/17 22:00 Completed TROPONIN Q3H Lab 03/23/17 01:15 Ordered TROPONIN Q3H Lab 03/23/17 04:15 Ordered TROPONIN Q3H Lab 03/23/17 07:15 Ordered UA W/ MICROSCOPIC Stat Lab 03/22/17 19:50 Completed Pulse Oximetry CONTINUOUS RT 03/22/17 22:50 Ordered Transfer Order Routine Transfer 03/22/17 Ordered Medication Summary Generic Name Dose Route Start Last Admin Trade Name Freq PRN Reason Stop Dose Admin Potassium Chloride/Sodium Chloride 1,000 mls @ 250 mls/hr 03/22/17 19:15 01/27 19:18 Sodium Chloride 0.9% W/ 20 Meq Kcl/Liter IV 04/21/17 19:14 250 mls/hr .Q4H BRIDGET Administration Sodium Chloride 1,000 mls @ 999 mls/hr 03/22/17 22:46 Sodium Chloride 0.9% 1000 Ml IV 03/22/17 23:46 .Q1H1M STA Discontinued Medications Generic Name Dose Route Start Last Admin Trade Name Freq PRN Reason Stop Dose Admin Sodium Chloride Confirm 03/22/17 18:01 Sodium Chloride 0.9% 1000 Ml Administered 03/22/17 18:02 Dose 1,000 mls @ ud .ROUTE .STK-MED ONE Sodium Chloride 1,000 mls @ 999 mls/hr 03/22/17 18:05 03/22/17 18:06 Sodium Chloride 0.9% 1000 Ml IV 03/22/17 19:05 999 mls/hr .Q1H1M STA Administration Piperacillin Sod/Tazobactam Sod 3.375 gm in 100 mls @ 200 mls/hr 03/22/17 21: 57 03/22/17 22:46 Zosyn 3.375gm/100 Ml D5w IV 03/22/17 22:26 200 mls/hr STAT STA Administration Piperacillin Sod/Tazobactam Sod Confirm 03/22/17 22:39 Zosyn 3.375gm/100 Ml D5w Administered 03/22/17 22:40 Dose 3.375 gm in 100 mls @ ud IV .STK-[employer] ONE Potassium Chloride 40 meq 03/22/17 18:55 03/22/17 19:18 Potassium Chl 40 Meq/30 Ml Oral Solution PO 03/22/17 18:56 40 meq DAILY STA Administration Potassium Chloride Confirm 03/22/17 19:13 Potassium Chloride 20 Meq Powder For Oral Vera Administered 03/22/17 19:14 Dose 40 meq .ROUTE .[employer] ONE Lab/Rad Data: Laboratory Result Diagrams 03/22/17 17:45 03/22/17 17:50 Laboratory Results 03/22/17 03/22/17 03/22/17 Range/Units 22:21 22:00 22:00 WBC (4.0-10.5) K/mm3 RBC (4.1-5.6) M/mm3 Hgb (12.5-18.0) gm/dl Hct (42-50) % MCV (78-100) fl MCH (26-32) pg MCHC (32-36) g/dl RDW (11.5-14.0) % Plt Count (150-450) K/mm3 MPV (6-9.5) fl Gran % (36.0-66.0) % Lymphocytes % (24.0-44.0) % Monocytes % (0.0-12.0) % Eosinophils % (0.00-5.0) % Basophils % (0.0-0.4) % Basophils # (0-0.4) D-Dimer (0-500) ng/mL Puncture Site LEFT RADIAL pCO2 29 L (35-45) mmHg pO2 73 L (75-100) mmHg Base Excess -20.2 L (-2.0-2.0) O2 Saturation 88.8 L (94-100) g/dF ABG pH 7.08 L* (7.35-7.45) ABG HCO3 8.6 L* (22-28) ABG O2 Sat (Measured) 94.6 L (95-100) % Asad Test YES A-a Gradient 40 a/A Ratio 0.65 Hemoglobin 15.5 Carboxyhemoglobin 4.9 (0.0-6.9) % THgb Methemoglobin 1.2 L (1.4-1.5) % Temperature 37.0 C POC O2 Flow Rate 21 % Sodium (136-145) mEq/L Potassium 3.5 (3.5-5.1) mEq/L Chloride (98-107) mEq/L Carbon Dioxide (21-32) mEq/L Anion Gap (5-15) MEQ/L BUN (9-20) mg/dL Creatinine (0.55-1.30) mg/dl Estimated GFR ML/MIN Glucose (70-110) MG/DL Lactic Acid (0.4-2.0) Calcium (8.5-10.1) mg/dL Magnesium 2.3 (1.8-2.4) mg/dL Total Bilirubin (0.2-1.0) mg/dL AST (15-37) U/L ALT (12-78) U/L Alkaline Phosphatase (46-116) U/L Troponin I < 0.017 (0.000-0.056) ng/ml NT-Pro-B Natriuret Pep (0-125) pg/ml Serum Total Protein (6.4-8.2) gm/dL Albumin (3.4-5.0) g/dL Lipase 932 H (73-393) U/L Ur Collection Type Urine Color (YELLOW) Urine Appearance (CLEAR) Urine pH (5-6) Ur Specific [place] (1.005-1.025) Urine Protein (Negative) Urine Ketones (NEGATIVE) Urine Blood (0-5) Ilan/ul Urine Nitrite (NEGATIVE) Urine Bilirubin (NEGATIVE) Urine Urobilinogen (0-1) mg/dL Ur Leukocyte Esterase (NEGATIVE) Urine Microscopic RBC (0-2) /HPF Urine Microscopic WBC (0-5) /HPF Urine Bacteria (NEGATIVE) /HPF Urine Culture Reflexed (NO) Urine Glucose (NEGATIVE) mg/dL Ethyl Alcohol (0.00-0.01) % Slides for Path Review Specimen Received 03/22/17 03/22/17 03/22/17 Range/Units 21:48 19:50 17:50 WBC (4.0-10.5) K/mm3 RBC (4.1-5.6) M/mm3 Hgb (12.5-18.0) gm/dl Hct (42-50) % MCV (78-100) fl MCH (26-32) pg MCHC (32-36) g/dl RDW (11.5-14.0) % Plt Count (150-450) K/mm3 MPV (6-9.5) fl Gran % (36.0-66.0) % Lymphocytes % (24.0-44.0) % Monocytes % (0.0-12.0) % Eosinophils % (0.00-5.0) % Basophils % (0.0-0.4) % Basophils # (0-0.4) D-Dimer (0-500) ng/mL Puncture Site pCO2 (35-45) mmHg pO2 (75-100) mmHg Base Excess (-2.0-2.0) O2 Saturation (94-100) g/dF ABG pH (7.35-7.45) ABG HCO3 (22-28) ABG O2 Sat (Measured) (95-100) % Asad Test A-a Gradient a/A Ratio Hemoglobin Carboxyhemoglobin (0.0-6.9) % THgb Methemoglobin (1.4-1.5) % Temperature C POC O2 Flow Rate % Sodium (136-145) mEq/L Potassium (3.5-5.1) mEq/L Chloride (98-107) mEq/L Carbon Dioxide (21-32) mEq/L Anion Gap (5-15) MEQ/L BUN (9-20) mg/dL Creatinine (0.55-1.30) mg/dl Estimated GFR ML/MIN Glucose (70-110) MG/DL Lactic Acid > 20.0 H (0.4-2.0) Calcium (8.5-10.1) mg/dL Magnesium (1.8-2.4) mg/dL Total Bilirubin (0.2-1.0) mg/dL AST (15-37) U/L ALT (12-78) U/L Alkaline Phosphatase (46-116) U/L Troponin I (0.000-0.056) ng/ml NT-Pro-B Natriuret Pep (0-125) pg/ml Serum Total Protein (6.4-8.2) gm/dL Albumin (3.4-5.0) g/dL Lipase (73-393) U/L Ur Collection Type CLEAN CATCH Urine Color YELLOW (YELLOW) Urine Appearance CLEAR (CLEAR) Urine pH 6.0 (5-6) Ur Specific [place] 1.020 (1.005-1.025) Urine Protein TRACE (Negative) Urine Ketones NEGATIVE (NEGATIVE) Urine Blood 50 (0-5) Ilan/ul Urine Nitrite NEGATIVE (NEGATIVE) Urine Bilirubin NEGATIVE (NEGATIVE) Urine Urobilinogen 4 (0-1) mg/dL Ur Leukocyte Esterase NEGATIVE (NEGATIVE) Urine Microscopic RBC 0-2 (0-2) /HPF Urine Microscopic WBC 0-2 (0-5) /HPF Urine Bacteria FEW (NEGATIVE) /HPF Urine Culture Reflexed YES (NO) Urine Glucose 100 (NEGATIVE) mg/dL Ethyl Alcohol 0.387 H* (0.00-0.01) % Slides for Path Review Specimen Received 03/22/17 1950 03/22/17 03/22/17 03/22/17 Range/Units 17:50 17:50 17:50 WBC (4.0-10.5) K/mm3 RBC (4.1-5.6) M/mm3 Hgb (12.5-18.0) gm/dl Hct (42-50) % MCV (78-100) fl MCH (26-32) pg MCHC (32-36) g/dl RDW (11.5-14.0) % Plt Count (150-450) K/mm3 MPV (6-9.5) fl Gran % (36.0-66.0) % Lymphocytes % (24.0-44.0) % Monocytes % (0.0-12.0) % Eosinophils % (0.00-5.0) % Basophils % (0.0-0.4) % Basophils # (0-0.4) D-Dimer 941.72 H* (0-500) ng/mL Puncture Site pCO2 (35-45) mmHg pO2 (75-100) mmHg Base Excess (-2.0-2.0) O2 Saturation (94-100) g/dF ABG pH (7.35-7.45) ABG HCO3 (22-28) ABG O2 Sat (Measured) (95-100) % Asad Test A-a Gradient a/A Ratio Hemoglobin Carboxyhemoglobin (0.0-6.9) % THgb Methemoglobin (1.4-1.5) % Temperature C POC O2 Flow Rate % Sodium 134 L (136-145) mEq/L Potassium 2.7 L* (3.5-5.1) mEq/L Chloride 88 L (98-107) mEq/L Carbon Dioxide 10.9 L* (21-32) mEq/L Anion Gap 37.8 H (5-15) MEQ/L BUN 19 (9-20) mg/dL Creatinine 1.55 H (0.55-1.30) mg/dl Estimated GFR 50 ML/MIN Glucose 208 H (70-110) MG/DL Lactic Acid (0.4-2.0) Calcium 8.4 L (8.5-10.1) mg/dL Magnesium (1.8-2.4) mg/dL Total Bilirubin 2.90 H (0.2-1.0) mg/dL AST 174 H (15-37) U/L ALT 34 (12-78) U/L Alkaline Phosphatase 126 H (46-116) U/L Troponin I (0.000-0.056) ng/ml NT-Pro-B Natriuret Pep 109 (0-125) pg/ml Serum Total Protein 7.7 (6.4-8.2) gm/dL Albumin 3.6 (3.4-5.0) g/dL Lipase (73-393) U/L Ur Collection Type Urine Color (YELLOW) Urine Appearance (CLEAR) Urine pH (5-6) Ur Specific [place] (1.005-1.025) Urine Protein (Negative) Urine Ketones (NEGATIVE) Urine Blood (0-5) Ilan/ul Urine Nitrite (NEGATIVE) Urine Bilirubin (NEGATIVE) Urine Urobilinogen (0-1) mg/dL Ur Leukocyte Esterase (NEGATIVE) Urine Microscopic RBC (0-2) /HPF Urine Microscopic WBC (0-5) /HPF Urine Bacteria (NEGATIVE) /HPF Urine Culture Reflexed (NO) Urine Glucose (NEGATIVE) mg/dL Ethyl Alcohol (0.00-0.01) % Slides for Path Review Specimen Received 03/22/17 03/22/17 03/22/17 Range/Units 17:45 17:42 17:40 WBC 5.9 (4.0-10.5) K/mm3 RBC 4.87 (4.1-5.6) M/mm3 Hgb 16.3 (12.5-18.0) gm/dl Hct 47.5 (42-50) % MCV 97.5 (78-100) fl MCH 33.5 H (26-32) pg MCHC 34.3 (32-36) g/dl RDW 13.3 (11.5-14.0) % Plt Count 44 L (150-450) K/mm3 MPV 11.9 H (6-9.5) fl Gran % 76.2 H (36.0-66.0) % Lymphocytes % 13.6 L (24.0-44.0) % Monocytes % 9.5 (0.0-12.0) % Eosinophils % 0.0 (0.00-5.0) % Basophils % 0.7 (0.0-0.4) % Basophils # 0.04 (0-0.4) D-Dimer (0-500) ng/mL Puncture Site pCO2 (35-45) mmHg pO2 (75-100) mmHg Base Excess (-2.0-2.0) O2 Saturation (94-100) g/dF ABG pH (7.35-7.45) ABG HCO3 (22-28) ABG O2 Sat (Measured) (95-100) % Asad Test A-a Gradient a/A Ratio Hemoglobin Carboxyhemoglobin (0.0-6.9) % THgb Methemoglobin (1.4-1.5) % Temperature C POC O2 Flow Rate % Sodium (136-145) mEq/L Potassium (3.5-5.1) mEq/L Chloride (98-107) mEq/L Carbon Dioxide (21-32) mEq/L Anion Gap (5-15) MEQ/L BUN (9-20) mg/dL Creatinine (0.55-1.30) mg/dl Estimated GFR ML/MIN Glucose (70-110) MG/DL Lactic Acid > 20.0 H (0.4-2.0) Calcium (8.5-10.1) mg/dL Magnesium (1.8-2.4) mg/dL Total Bilirubin (0.2-1.0) mg/dL AST (15-37) U/L ALT (12-78) U/L Alkaline Phosphatase (46-116) U/L Troponin I < 0.017 (0.000-0.056) ng/ml NT-Pro-B Natriuret Pep (0-125) pg/ml Serum Total Protein (6.4-8.2) gm/dL Albumin (3.4-5.0) g/dL Lipase (73-393) U/L Ur Collection Type Urine Color (YELLOW) Urine Appearance (CLEAR) Urine pH (5-6) Ur Specific [place] (1.005-1.025) Urine Protein (Negative) Urine Ketones (NEGATIVE) Urine Blood (0-5) Ilan/ul Urine Nitrite (NEGATIVE) Urine Bilirubin (NEGATIVE) Urine Urobilinogen (0-1) mg/dL Ur Leukocyte Esterase (NEGATIVE) Urine Microscopic RBC (0-2) /HPF Urine Microscopic WBC (0-5) /HPF Urine Bacteria (NEGATIVE) /HPF Urine Culture Reflexed (NO) Urine Glucose (NEGATIVE) mg/dL Ethyl Alcohol (0.00-0.01) % Slides for Path Review YES Specimen Received - Progress Progress: improved Air Movement: fair <AMBREEN GUSTAFSON - Last Filed: 03/22/17 19:11> - Progress Progress: improved Air Movement: good Discussed with : Gera Will see patient in: hospital (observation) Counseled pt/family regarding: drug and/or alcohol abuse, lab results, diagnosis , rad results, smoking cessation <MASHA SOUSA - Last Filed: 03/22/17 22:57> - Progress Progress Note: 03/22/17 22:53 Pt has been afebrile, O 2 sat: 97 % on RA, stable, no hypotensive, improved. I called DR Padilla, discussed our results and patient's current condition, he agreed to admit him for observation to Telemetry with vomiting, Hypokalemia, Pancreatitis, Alcohol Intoxication. He was given iv fluids, Zofran, and iv Zosyn. Patient and his family was informed, they agreed. (MASHA SOUSA) - Departure Critical Care Time: No <AMBREEN GUSTAFSON - Last Filed: 03/22/17 19:11> - Departure Time of Disposition: 22:56 Departure Disposition: Observation Critical Care Time: No <MASHA SOUSA - Last Filed: 03/22/17 22:57> - Departure Clinical Impression: Shortness of breath, Hypokalemia, Alcoholism Pancreatitis Qualifiers: Chronicity: acute Pancreatitis type: alcohol induced Acute pancreatitis complication: unspecified Qualified Code(s): K85.20 - Alcohol induced acute pancreatitis without necrosis or infection Condition: Stable Referrals: AMBREEN PADILLA [Primary Care Provider] -
[2017-03-22 18:22] LABS: ALBUMIN 3.6 g/dL (3.4-5.0); ANION GAP 37.8 MEQ/L (5-15); BILIRUBIN,TOTAL 2.9 mg/dL (0.2-1.0); Calcium 8.4 mg/dL (8.5-10.1); Creatinine 1 1.55 mg/dl (0.55-1.30); Total Protein 7.7 gm/dL (6.4-8.2)
[2017-03-22 18:28] LABS: Slide Review 1 YES
[2017-03-22 18:30] LABS: Potassium 2.7 mEq/L (3.5-5.1)
[2017-03-22 18:31] LABS: Carbon Dioxide 10.9 mEq/L (21-32)
[2017-03-22] MEDS ORDERED: POTASSIUM CHL 40 MEQ/30 ML ORAL SOLUTION PO STA ×2 (18:55→23:56)
[2017-03-22] MEDS ORDERED: Sodium Chloride 0.9% W/ 20 mEq KCl/LITER 1,000 ML IV ONE (19:13)
[2017-03-22] MEDS ORDERED: POTASSIUM CHLORIDE 20 MEQ POWDER FOR ORAL SOL ONE (19:13)
[2017-03-22] MEDS ORDERED: Sodium Chloride 0.9% W/ 20 mEq KCl/LITER 1,000 ML IV SCH (19:15)
[2017-03-22] MEDS ORDERED: HOLD METFORMIN PRODUCTS FOR 48 HOURS MC PRN (21:00)
[2017-03-22 21:14] LABS: Appearance CLEAR (CLEAR); Bilirubin NEGATIVE (NEGATIVE); Blood 50 Ery/ul (0-5); Glucose 100 mg/dL (NEGATIVE); Ketones NEGATIVE (NEGATIVE); Leukocyte Esterase NEGATIVE (NEGATIVE); Nitrite NEGATIVE (NEGATIVE); Protein,Urine Dip TRACE (Negative); Urobilinogen 4 mg/dL (0-1)
[2017-03-22 21:15] LABS: Bacteria FEW /HPF (NEGATIVE); WBC 0-2 /HPF (0-5)
[2017-03-22 21:49] LABS: Lactic Acid > 20.0 (0.4-2.0)
[2017-03-22] MEDS ORDERED: Zosyn 3.375GM/100 Ml D5W 3.375 GM/100 ML IVPB IV STA (21:57)
[2017-03-22 22:21] LABS: A-aADO2 40; ABG HEMOGLOBIN 15.5; ABG POTASSIUM 3.5 (3.5-5.1); ARTERIAL BLD GAS O2 SATURATION 94.6 % (95-100); ARTERIAL BLOOD GAS BASE EXCESS -20.2 (-2.0-2.0); ARTERIAL BLOOD GAS FIO2 21 %; ARTERIAL BLOOD GAS PCO2 29 mmHg (35-45); ARTERIAL BLOOD GAS PO2 73 mmHg (75-100); CARBOXYHEMOGLOBIN 4.9 % THgb (0.0-6.9); HCO3- 8.6 (22-28); HGB O2 SAT 88.8 g/dF (94-100); Methhemoglobin 1.2 % (1.4-1.5); paO2 pAO1 0.65
[2017-03-22 22:23] LABS: ABG SITE LEFT RADIAL; ARTERIAL BLOOD GAS pH 7.08 (7.35-7.45)
[2017-03-22 22:24] LABS: ALLEN TEST OK? YES
[2017-03-22 22:25] LABS: MAGNESIUM 2.3 mg/dL (1.8-2.4)
[2017-03-22] MEDS ORDERED: Zosyn 3.375GM/100 Ml D5W 3.375 GM/100 ML IVPB IV ONE (22:39)
[2017-03-22] MEDS ORDERED: TYLENOL 325 MG PO PRN (22:48)
[2017-03-22] MEDS ORDERED: DUONEB 0.5-3 MG/3 ml Neb IH PRN (22:48)
[2017-03-22] MEDS ORDERED: Zofran 4 MG/2 ML VIAL IV PRN (22:48)
[2017-03-23] MEDS: Sodium Chloride 0.9% 1000 ML 1,000 ML IV SCH ×2 (02:14→08:30)
[2017-03-23 05:03] LABS: BASOPHIL % 0.3 % (0.0-0.4); Basophil (Absolute #) 0.02 (0-0.4); Eosinophil (Absolute #) 0 (0-0.5); Granulocyte Absolute (ANC) 6.73 (1.4-6.9); Granulocytes % 84.7 % (36.0-66.0); Hematocrit 41.3 % (42-50); Hemoglobin 13.8 gm/dl (12.5-18.0); Lymphocyte (Absolute #) 0.54 (1.0-4.6); Lymphocytes % 6.8 % (24.0-44.0); Mean Cell Volume 99.8 fl (78-100); Mean Corpuscular Hemoglobin 33.3 pg (26-32); Mean Corpuscular Hgb Concent. 33.4 g/dl (32-36); Mean Platelet Volume 12.4 fl (6-9.5); Monocyte (Absolute #) 0.65 (0.0-1.3); Monocytes % 8.2 % (0.0-12.0); Red Blood Count 4.14 M/mm3 (4.1-5.6); Red Cell Distribution Width 13.1 % (11.5-14.0); White Blood Count 7.9 K/mm3 (4.0-10.5)
[2017-03-23 05:28] LABS: ANION GAP 30.9 MEQ/L (5-15); BLOOD UREA NITROGEN 19 mg/dL (9-20); CHLORIDE 97 mEq/L (98-107); Calcium 7.1 mg/dL (8.5-10.1); Creatinine 1 1.12 mg/dl (0.55-1.30); EST GLOMERULAR FILTRATION RATE > 60 ML/MIN; Glucose 209 MG/DL (70-110); Potassium 4.4 mEq/L (3.5-5.1); SODIUM 135 mEq/L (136-145)
[2017-03-23 06:14] LABS: Carbon Dioxide 11.1 mEq/L (21-32)
[2017-03-23 06:21] LABS: Platelet Count 30 K/mm3 (150-450)
[2017-03-23] MEDS ORDERED: Ativan 2 MG/1 ML VIAL IV PRN (07:31)
[2017-03-23] MEDS: Ativan 1 MG PO PRN ×2 (08:07→12:10)
[2017-03-23] MEDS: Pepcid 20 MG VIAL IV SCH ×2 (08:07→21:43)
--- NOTE | 2017-03-23 08:21 | PCM.HP ---
History of Present Illness - Chief Complaint Chief Complaint: alcohol withdrawal Date: 03/23/17 History of Present Illness: is a 51 year old male. who has history of alcoholism and has started drinking heavily for the last 2 months. He reports he vomits everyday but yesterday was having severe right sided chest pain and thought he had pneumonia so he came to the ED. He was found to have very high alcohol level and a broken right 6th rib. He has chronic pancreatitis. He currently is having severe pain on the right side of his chest no significant shortness of breath. He denies abdominal pain or nausea no diarrhea. He is having uncontrollable shaking. - Review of Systems Constitutional: Fatigue, No Fever, No Chills Eyes: No Symptoms Ears, Nose, & Throat: No Symptoms Respiratory: Cough, No Short Of Breath Cardiac: Chest Pain, No Edema, No Syncope Abdominal/Gastrointestinal: Vomiting, No Abdominal Pain, No Diarrhea Genitourinary Symptoms: No Dysuria Musculoskeletal: Back Pain, No Neck Pain Skin: No Rash Neurological: No Dizziness, No Focal Weakness, No Sensory Changes Psychological: No Symptoms Endocrine: No Symptoms Hematologic/Lymphatic: No Symptoms Immunological/Allergic: No Symptoms Medications & Allergies Home Medications: Home Medication List Albuterol Common Canister [Proventil Common Canister] 1 puff IH QID PRN [History Confirmed 03/22/17] Carbidopa/Levodopa [Carbidopa-Levodopa 25-100 Tab] 1 tab PO UD 03/23/17 [ History Confirmed 03/23/17] Zonisamide [Zonisamide] 1 cap PO UD 03/23/17 [History Confirmed 03/23/17] Allergies/Adverse Reactions: Allergies Allergy/AdvReac Type Severity Reaction Status Date / Time No Known Drug Allergies Allergy Verified 03/22/17 17:45 - Past Medical History Past Medical History: Yes Neurological History: TIA ENT History: No Pertinent History Cardiac History: Coronary Artery Disease, Hypertension Respiratory History: COPD Endocrine Medical History: No Pertinent History Musculoskelatal History: Degenerative Disk Disease, Osteoarthritis, Other GI Medical History: Hepatitis, Pancreatitis History: No Pertinent History Pyscho-Social History: No Pertinent History Male Reproductive Disorders: No Pertinent History Comment: CARDIAC BLOCKAGE, Hepatitis C, alcoholism - Past Surgical History Past Surgical History: Yes Neuro Surgical History: No Pertinent History Cardiac History: No Pertinent History Respiratory Surgery: No Pertinent History GI Surgical History: No Pertinent History Genitourinary Surgical Hx: No Pertinent History Musculskeletal Surgical Hx: Orthopedic Surgery Male Surgical History: No Pertinent History Other Surgical History: NECK SURG IN MAR 2013, Lower back surgery x 2 in 1991, sinus surgery - Social History Smoking Status: Current every day smoker How long have you smoked: 3 Exposure to second hand smoke: Yes Alcohol: Heavy Drug Use: none - Physical Exam Vital Signs: Vital Signs - 24 hr Temp Pulse Resp BP Pulse Ox 03/23/17 07:27 98 F 70 20 180/99 90 L 03/23/17 04:00 98.2 F 119 H 20 167/110 97 03/23/17 00:03 98.0 F 116 H 22 152/95 96 03/22/17 21:21 116 H 18 111/74 97 03/22/17 21:20 115 H 16 111/74 96 03/22/17 19:11 99 03/22/17 18:50 108 H 16 133/88 98 03/22/17 17:39 97.3 F 110 H 20 138/100 99 General Appearance: no apparent distress, alert Neurologic Exam: alert, oriented x 3, cooperative, normal mood/affect, nml station & gait, sensation nml, other (diffuse tremors bilatereal upper extremities body head and voice), No motor deficits Eye Exam: PERRL/EOMI, eyes nml inspection Ears, Nose, Throat Exam: normal ENT inspection, TMs normal, pharynx normal, moist mucous membranes Neck Exam: normal inspection, non-tender, supple, full range of motion Respiratory Exam: prolonged expirations, wheezing, other (right side chest pain reproduced on palpation), No respiratory distress Cardiovascular Exam: regular rate/rhythm, normal heart sounds, normal peripheral pulses Gastrointestinal/Abdomen Exam: soft, normal bowel sounds, No tenderness, No mass Back Exam: normal inspection, normal range of motion, No CVA tenderness, No vertebral tenderness Extremity Exam: normal inspection, normal range of motion, pelvis stable Skin Exam: normal color, warm, dry, No rash Lymphatic Exam: No adenopathy Results - Labs Lab/Micro Results: Lab Results-Last 24 Hours 03/23/17 03/23/17 03/23/17 Range/Units 01:15 04:42 04:42 WBC 7.9 (4.0-10.5) K/mm3 RBC 4.14 (4.1-5.6) M/mm3 Hgb 13.8 (12.5-18.0) gm/dl Hct 41.3 L (42-50) % MCV 99.8 (78-100) fl MCH 33.3 H (26-32) pg MCHC 33.4 (32-36) g/dl RDW 13.1 (11.5-14.0) % Plt Count 30 L (150-450) K/mm3 MPV 12.4 H (6-9.5) fl Gran % 84.7 H (36.0-66.0) % Lymphocytes % 6.8 L (24.0-44.0) % Monocytes % 8.2 (0.0-12.0) % Eosinophils % 0.0 (0.00-5.0) % Basophils % 0.3 (0.0-0.4) % Basophils # 0.02 (0-0.4) Sodium (136-145) mEq/L Potassium (3.5-5.1) mEq/L Chloride (98-107) mEq/L Carbon Dioxide (21-32) mEq/L Anion Gap (5-15) MEQ/L BUN (9-20) mg/dL Creatinine (0.55-1.30) mg/dl Estimated GFR ML/MIN Glucose (70-110) MG/DL Calcium (8.5-10.1) mg/dL Troponin I < 0.017 < 0.017 (0.000-0.056) ng/ml 03/23/17 03/23/17 Range/Units 04:42 07:10 WBC (4.0-10.5) K/mm3 RBC (4.1-5.6) M/mm3 Hgb (12.5-18.0) gm/dl Hct (42-50) % MCV (78-100) fl MCH (26-32) pg MCHC (32-36) g/dl RDW (11.5-14.0) % Plt Count (150-450) K/mm3 MPV (6-9.5) fl Gran % (36.0-66.0) % Lymphocytes % (24.0-44.0) % Monocytes % (0.0-12.0) % Eosinophils % (0.00-5.0) % Basophils % (0.0-0.4) % Basophils # (0-0.4) Sodium 135 L (136-145) mEq/L Potassium 4.4 (3.5-5.1) mEq/L Chloride 97 L (98-107) mEq/L Carbon Dioxide 11.1 L* (21-32) mEq/L Anion Gap 30.9 H (5-15) MEQ/L BUN 19 (9-20) mg/dL Creatinine 1.12 (0.55-1.30) mg/dl Estimated GFR > 60 ML/MIN Glucose 209 H (70-110) MG/DL Calcium 7.1 L (8.5-10.1) mg/dL Troponin I < 0.017 (0.000-0.056) ng/ml - Other Procedures and Tests Respiratory Therapy 03/23/17 07:00 Respiratory Nebulizer PRN Assessment/Plan (1) Alcohol withdrawal Current Visit: Yes Status: Acute Assessment & Plan: CIWA protocol with ativan prn thiamine, MVI, folate clear liquid for now pain control for the rib fracture treat copd exacerbation with steriods antibiotic will cover with unasyn for now as was started in ED with 1 dose of zosyn and cover for any aspiration as he was at risk for that the severe anion gap lactic acidosis is likely related to his alcoholic ketosis cover the hyperglycemia with sliding scale. treat alcohol induced thrombocytopenia with prednisone as well Code(s): F10.239 - ALCOHOL DEPENDENCE WITH WITHDRAWAL, UNSPECIFIED (2) Right rib fracture Current Visit: Yes Status: Acute Code(s): S22.31XA - FRACTURE OF ONE RIB, RIGHT SIDE, INIT FOR CLOS FX (3) COPD with exacerbation Current Visit: Yes Status: Acute Code(s): J44.1 - CHRONIC OBSTRUCTIVE PULMONARY DISEASE W (ACUTE) EXACERBATION (4) Hyperglycemia Current Visit: Yes Status: Acute Code(s): R73.9 - HYPERGLYCEMIA, UNSPECIFIED (5) Hypertension Current Visit: Yes Status: Chronic Code(s): I10 - ESSENTIAL (PRIMARY) HYPERTENSION (6) Hypokalemia Current Visit: Yes Status: Acute Code(s): E87.6 - HYPOKALEMIA (7) Chronic pancreatitis Current Visit: Yes Status: Chronic Code(s): K86.1 - OTHER CHRONIC PANCREATITIS (8) Thrombocytopenia Current Visit: Yes Status: Chronic
--- NOTE | 2017-03-23 08:56 | XRAY ---
Indication: Cough. Comparison: November 28, 2016. Portable chest again demonstrates minimal right base atelectasis/scarring and left lung calcified granulomas. No focal infiltrate, consolidation, or large effusion. Heart is not enlarged. Bony thorax intact. Impression: Nonacute chest with chronic features.
--- NOTE | 2017-03-23 09:02 | XRAY ---
Indication: Chest pain. Short of breath. Multiple contiguous axial images obtained through the chest using 80 cc Isovue 370 contrast and PE protocol. Comparison: November 19, 2016. There is satisfactory opacification of the pulmonary arteries. Respiration artifact limits evaluation of the more distal lobar and segmental branches, especially near the lung bases. No central pulmonary embolus. Heart is not enlarged. Aorta is normal in course and caliber. Stable left hilar calcified nodes. No pathologic mediastinal/hilar lymphadenopathy. Examination of the lung parenchyma demonstrates right lower lobe dependent atelectasis/scarring and left lower lobe calcified granuloma. No suspicious pulmonary mass, infiltrate, consolidation, or effusion. Bone windows again reveal mild degenerative changes throughout the spine. New nondisplaced right anterolateral sixth rib fracture. CT abdomen reported separately. Impression: 1. CT PE exam limited by respiration artifact. No large central pulmonary embolus. 2. Right lower lobe atelectasis/scarring and evidence for old granulomatous disease. 3. No acute cardiopulmonary abnormalities. 4. New finding for nondisplaced right sixth rib fracture. CT DI 20.00
[2017-03-23] MEDS: MORPHINE SULFATE 4 MG INJ IV PRN ×2 (09:06→13:17)
[2017-03-23] MEDS: DELTASONE 20 MG PO SCH (09:06)
[2017-03-23] MEDS: THERAGRAN MULTIVITAMIN PO SCH (09:06)
[2017-03-23] MEDS: VITAMIN B-1 100 MG PO SCH (09:06)
[2017-03-23] MEDS: FOLATE 1 MG PO SCH (09:07)
--- NOTE | 2017-03-23 09:10 | XRAY ---
Indication: Upper abdominal pain. History pancreatitis. Multiple contiguous axial images obtained through the abdomen and pelvis using 80 cc Isovue 370 contrast only. Comparison: May 23, 2016. CT chest reported separately. Stomach is mildly fluid distended. Noncontrasted bowel loops appear nonobstructed. Cecum and ileocecal junction now demonstrates circumferential wall thickening without stranding either incomplete distention versus Crohn's disease. Normal appendix. No free fluid/air. Stable diffuse fatty liver. Gallbladder is abnormally distended without gallstones or abnormal biliary distention. Again scattered calcified splenic granulomas and nonspecific bilateral perinephric stranding. Remaining pancreas, adrenal glands, kidneys, ureters, and bladder appear unremarkable for noncontrast exam. Stable minimal aortoiliac calcifications. No AAA or pathologic retroperitoneal lymphadenopathy. Osseous structures intact again with degenerative changes throughout the spine again greatest at the lumbosacral junction. Stable ovoid fluid collection in the right inguinal canal. Impression: 1. Cecal and ileocecal wall thickening without stranding. Rule out incomplete distention versus Crohn's disease. 2. Distended gallbladder without gallstones. Gallbladder sonogram may yield further information if clinically warranted. 3. Stable fatty liver and right inguinal canal fluid collection. CT DI 8.55
[2017-03-23 09:13] LABS: Lymphocytes 16 % (24-44); Monocyte 1 % (0.0-12.0); Neutrophils 83 % (36.-66.); Total Cells Counted 100
[2017-03-23 09:15] LABS: ANISOCYTOSIS 1+; Hypochromia 1+; Platelet Estimate DECREASED (NORMAL)
[2017-03-23] MEDS: Lactated Ringers 1,000 ML IV SCH (09:15)
[2017-03-23] MEDS ORDERED: PROVENTIL COMMON CANISTER IH PRN (09:15)
[2017-03-23] MEDS ORDERED: POTASSIUM CHL 40 MEQ/30 ML ORAL SOLUTION PO SCH (10:00)
[2017-03-23] MEDS: Ativan 2 MG/1 ML VIAL IV PRN ×6 (10:27→23:58)
[2017-03-23] MEDS: Unasyn 3GM / NaCl 100ML 3 GM/100 ML IVPB IV SCH ×3 (10:27→20:25)
[2017-03-23] MEDS: NovoLOG Insulin SQ PRN ×2 (11:47→22:50)
[2017-03-23 16:00] LABS: Lactic Acid 5.9 (0.4-2.0); VBG BASE EXCESS -2.8 (-2.0-2.0); VBG CARBOXYHEMOGLOBIN 3.9 % T HGB (0.0-6.9); VBG HCO3- 20.4 meq/L (22-28); VBG HEMOGLOBIN 12.2; VBG O2 SATURATION 94.2 (95-100); VBG PCO2 30 mm/Hg (42-55); VBG PO2 53 mm/Hg (25-40); VBG POTASSIUM 3.6 (3.5-5.1); VBG pH 7.44 (7.32-7.42)
[2017-03-23 16:02] LABS: Basophil (Absolute #) 0 (0-0.4); Eosinophil (Absolute #) 0 (0-0.5); Granulocyte Absolute (ANC) 4.73 (1.4-6.9); Granulocytes % 90.8 % (36.0-66.0); Hematocrit 33.6 % (42-50); Hemoglobin 11.3 gm/dl (12.5-18.0); Lymphocyte (Absolute #) 0.21 (1.0-4.6); Mean Corpuscular Hemoglobin 33.6 pg (26-32); Mean Corpuscular Hgb Concent. 33.6 g/dl (32-36); Monocyte (Absolute #) 0.27 (0.0-1.3); Monocytes % 5.2 % (0.0-12.0); Red Blood Count 3.36 M/mm3 (4.1-5.6); Red Cell Distribution Width 12.8 % (11.5-14.0); White Blood Count 5.2 K/mm3 (4.0-10.5)
[2017-03-23 16:30] LABS: Platelet Count 24 K/mm3 (150-450)
[2017-03-23] MEDS ORDERED: APRESOLINE 20 MG/ML INJ IV PRN (16:31)
[2017-03-23 16:34] LABS: ALBUMIN 2.9 g/dL (3.4-5.0); ALKALINE PHOSPHATASE 90 U/L (46-116); ANION GAP 17.5 MEQ/L (5-15); BLOOD UREA NITROGEN 21 mg/dL (9-20); CHLORIDE 98 mEq/L (98-107); Calcium 7.3 mg/dL (8.5-10.1); Carbon Dioxide 20.2 mEq/L (21-32); Creatinine 1 0.97 mg/dl (0.55-1.30); EST GLOMERULAR FILTRATION RATE > 60 ML/MIN; Glucose 152 MG/DL (70-110); Lymphocytes 9 % (24-44); MAGNESIUM 1.6 mg/dL (1.8-2.4); Monocyte 2 % (0.0-12.0); Neutrophils 89 % (36.-66.); Platelet Estimate DECREASED (NORMAL); Potassium 3.6 mEq/L (3.5-5.1); SGOT/AST 118 U/L (15-37); SGPT/ALT 24 U/L (12-78); SODIUM 132 mEq/L (136-145); Total Cells Counted 100
[2017-03-23 16:37] LABS: Hypochromia 1+
[2017-03-23] MEDS: Magnesium 1 Gm / 100 Ml D5W*** 100 ML IV SCH ×2 (18:11→19:16)
[2017-03-23] MEDS ORDERED: Magnesium 1 Gm / 100 Ml D5W*** 200 ML IV ONE (18:12)
[2017-03-23] MEDS: Lopressor 50 MG PO SCH (21:43)
[2017-03-24] MEDS: Lactated Ringers 1,000 ML IV SCH ×3 (00:24→21:47)
[2017-03-24] MEDS: Unasyn 3GM / NaCl 100ML 3 GM/100 ML IVPB IV SCH ×4 (03:18→21:44)
[2017-03-24] MEDS: Ativan 2 MG/1 ML VIAL IV PRN ×6 (03:23→15:36)
[2017-03-24 05:56] LABS: Lactic Acid 1.9 (0.4-2.0)
[2017-03-24 06:28] LABS: Hematocrit 30.3 % (42-50); Hemoglobin 10.4 gm/dl (12.5-18.0); Mean Cell Volume 98.4 fl (78-100); Mean Corpuscular Hgb Concent. 34.3 g/dl (32-36); Mean Platelet Volume 12.7 fl (6-9.5); Red Blood Count 3.08 M/mm3 (4.1-5.6); Red Cell Distribution Width 12.4 % (11.5-14.0); White Blood Count 5.3 K/mm3 (4.0-10.5)
[2017-03-24 06:32] LABS: Mean Corpuscular Hemoglobin 33.7 pg (26-32)
[2017-03-24 06:33] LABS: Platelet Count 23 K/mm3 (150-450)
[2017-03-24 06:44] LABS: ALBUMIN 2.6 g/dL (3.4-5.0); ALKALINE PHOSPHATASE 75 U/L (46-116); BLOOD UREA NITROGEN 21 mg/dL (9-20); CHLORIDE 99 mEq/L (98-107); Calcium 7.5 mg/dL (8.5-10.1); Carbon Dioxide 27.5 mEq/L (21-32); EST GLOMERULAR FILTRATION RATE > 60 ML/MIN; Glucose 148 MG/DL (70-110); MAGNESIUM 1.9 mg/dL (1.8-2.4); SGOT/AST 88 U/L (15-37); SGPT/ALT 21 U/L (12-78); SODIUM 134 mEq/L (136-145); Total Protein 5.5 gm/dL (6.4-8.2)
[2017-03-24 06:47] LABS: Potassium 2.9 mEq/L (3.5-5.1)
[2017-03-24 07:48] LABS: BAND 3 % (0.0-2.0); Lymphocytes 12 % (24-44); Neutrophils 85 % (36.-66.); Nucleated Red Blood Cell 1 %; Platelet Estimate DECREASED (NORMAL); Total Cells Counted 100
[2017-03-24 07:50] LABS: ANISOCYTOSIS 1+; Poikilocytosis 1+
[2017-03-24] MEDS: POTASSIUM CHLORIDE 20 mEq IN WATER 100ML 20 MEQ/100 ML BAG IV SCH ×2 (07:52→10:36)
[2017-03-24] MEDS: VITAMIN B-1 100 MG PO SCH (09:16)
[2017-03-24] MEDS: THERAGRAN MULTIVITAMIN PO SCH (09:16)
[2017-03-24] MEDS: DELTASONE 20 MG PO SCH (09:16)
[2017-03-24] MEDS: Lopressor 50 MG PO SCH ×2 (09:16→21:46)
[2017-03-24] MEDS: FOLATE 1 MG PO SCH (09:16)
[2017-03-24] MEDS: Pepcid 20 MG VIAL IV SCH ×2 (09:17→21:53)
--- NOTE | 2017-03-24 10:53 | PCM.NOTE ---
Date and Time: 03/24/17 1047 Subjective Assessment: he continues to have some hallucinations confusion withdrawal symptoms shaking improving with the ativan but requiring IV every 2 hours. still has the pain on the right side of the chest with the broken rib. Objective Exam General Appearance: no apparent distress, mild distress Neurologic Exam: cooperative, other (mild tremors some confusion communicating well. intermittent hallucinations) Skin Exam: normal color, warm, dry Eye Exam: PERRL, EOMI, eyes nml inspection Neck Exam: normal inspection, non-tender, supple, full range of motion Respiratory Exam: wheezing, other (right chest tenderness over broken rib), No respiratory distress Cardiovascular Exam: tachycardia Gastrointestinal/Abdomen Exam: soft, No tenderness, No mass Extremity Exam: normal inspection, normal range of motion Back Exam: normal inspection, normal range of motion, No CVA tenderness, No vertebral tenderness Male Genitalia Exam: deferred Rectal Exam: deferred OBJECTIVE DATA Vital Signs: Vital Signs - 24 hr Temp Pulse Resp BP Pulse Ox 03/24/17 07:25 98.7 F 101 H 18 150/88 94 L 03/24/17 04:00 98.7 F 92 H 18 136/90 92 L 03/24/17 00:00 98.0 F 86 20 147/102 93 L 03/23/17 21:43 99 H 20 94 L 03/23/17 19:55 97.9 F 99 H 20 149/100 94 L 03/23/17 16:00 98 F 111 H 22 165/66 92 L 03/23/17 12:00 16 03/23/17 11:26 98.4 F 120 H 22 165/93 96 Pain Assessment - Last Documented Pain Intensity 5 Pain Scale Used 0-10 Pain Scale Intake and Output: Intake & Output 03/21/17 03/22/17 03/23/17 03/24/17 11:59 11:59 11:59 11:59 Intake Total 360 3273 Output Total 1050 Balance 360 2223 Weight 73.6 kg Lab Results: Accuchecks Date 03/23/17 Date 03/23/17 Date 03/23/17 Time 16:30 Time 11:55 Accucheck Value: 150 Accucheck Value: 222 Accucheck Value: 148 Accucheck Value: 275 Lab Results-Last 24 Hours 01/12/18 01/12/18 01/12/18 Range/Units 15:59 15:59 15:59 WBC 5.2 (4.0-10.5) K/mm3 RBC 3.36 L (4.1-5.6) M/mm3 Hgb 11.3 L (12.5-18.0) gm/dl Hct 33.6 L (42-50) % MCV 100.0 (78-100) fl MCH 33.6 H (26-32) pg MCHC 33.6 (32-36) g/dl RDW 12.8 (11.5-14.0) % Plt Count 24 L* (150-450) K/mm3 MPV 12.0 H (6-9.5) fl Gran % 90.8 H (36.0-66.0) % Lymphocytes % 4.0 L (24.0-44.0) % Monocytes % 5.2 (0.0-12.0) % Eosinophils % 0.0 (0.00-5.0) % Basophils % 0.0 (0.0-0.4) % Segmented Neutrophils 89 H (36.-66.) % Band Neutrophils (0.0-2.0) % Lymphocytes (Manual) 9 L (24-44) % Monocytes (Manual) 2 (0.0-12.0) % Basophils # 0 (0-0.4) Nucleated RBCs % Differential Comment ABNORMAL Platelet Estimate DECREASED (NORMAL) Hypochromasia 1+ Poikilocytosis Anisocytosis VBG pH (7.32-7.42) VBG pCO2 at Pat Temp (42-55) mm/Hg VBG pO2 at Pat Temp (25-40) mm/Hg VBG HCO3 (22-28) meq/L VBG O2 Sat (Wanda) (95-100) VBG Base Excess (-2.0-2.0) VBG Hemoglobin VBG Carboxyhemoglobin (0.0-6.9) % T HGB POC Potassium (3.5-5.1) Sodium 132 L (136-145) mEq/L Potassium 3.6 (3.5-5.1) mEq/L Chloride 98 (98-107) mEq/L Carbon Dioxide 20.2 L (21-32) mEq/L Anion Gap 17.5 H (5-15) MEQ/L BUN 21 H (9-20) mg/dL Creatinine 0.97 (0.55-1.30) mg/dl Estimated GFR > 60 ML/MIN Glucose 152 H (70-110) MG/DL Hemoglobin A1c 6.6 H (4.5-6.2) Lactic Acid (0.4-2.0) Calcium 7.3 L (8.5-10.1) mg/dL Magnesium 1.6 L (1.8-2.4) mg/dL Total Bilirubin 4.10 H (0.2-1.0) mg/dL AST 118 H (15-37) U/L ALT 24 (12-78) U/L Alkaline Phosphatase 90 (46-116) U/L Serum Total Protein 6.0 L (6.4-8.2) gm/dL Albumin 2.9 L (3.4-5.0) g/dL 03/23/17 03/24/17 03/24/17 Range/Units 16:00 05:25 05:25 WBC 5.3 (4.0-10.5) K/mm3 RBC 3.08 L (4.1-5.6) M/mm3 Hgb 10.4 L (12.5-18.0) gm/dl Hct 30.3 L (42-50) % MCV 98.4 (78-100) fl MCH 33.7 H (26-32) pg MCHC 34.3 (32-36) g/dl RDW 12.4 (11.5-14.0) % Plt Count 23 L* (150-450) K/mm3 MPV 12.7 H (6-9.5) fl Gran % (36.0-66.0) % Lymphocytes % (24.0-44.0) % Monocytes % (0.0-12.0) % Eosinophils % (0.00-5.0) % Basophils % (0.0-0.4) % Segmented Neutrophils 85 H (36.-66.) % Band Neutrophils 3 H (0.0-2.0) % Lymphocytes (Manual) 12 L (24-44) % Monocytes (Manual) (0.0-12.0) % Basophils # (0-0.4) Nucleated RBCs 1 % Differential Comment ABNORMAL Platelet Estimate DECREASED (NORMAL) Hypochromasia Poikilocytosis 1+ Anisocytosis 1+ VBG pH 7.44 H (7.32-7.42) VBG pCO2 at Pat Temp 30 L (42-55) mm/Hg VBG pO2 at Pat Temp 53 H (25-40) mm/Hg VBG HCO3 20.4 L (22-28) meq/L VBG O2 Sat (Wanda) 94.2 L (95-100) VBG Base Excess -2.8 L (-2.0-2.0) VBG Hemoglobin 12.2 VBG Carboxyhemoglobin 3.9 (0.0-6.9) % T HGB POC Potassium 3.6 (3.5-5.1) Sodium 134 L (136-145) mEq/L Potassium 2.9 L* (3.5-5.1) mEq/L Chloride 99 (98-107) mEq/L Carbon Dioxide 27.5 (21-32) mEq/L Anion Gap 11.0 (5-15) MEQ/L BUN 21 H (9-20) mg/dL Creatinine 0.70 (0.55-1.30) mg/dl Estimated GFR > 60 ML/MIN Glucose 148 H (70-110) MG/DL Hemoglobin A1c (4.5-6.2) Lactic Acid 5.9 H (0.4-2.0) Calcium 7.5 L (8.5-10.1) mg/dL Magnesium 1.9 (1.8-2.4) mg/dL Total Bilirubin 4.50 H (0.2-1.0) mg/dL AST 88 H (15-37) U/L ALT 21 (12-78) U/L Alkaline Phosphatase 75 (46-116) U/L Serum Total Protein 5.5 L (6.4-8.2) gm/dL Albumin 2.6 L (3.4-5.0) g/dL 03/24/17 Range/Units 05:40 WBC (4.0-10.5) K/mm3 RBC (4.1-5.6) M/mm3 Hgb (12.5-18.0) gm/dl Hct (42-50) % MCV (78-100) fl MCH (26-32) pg MCHC (32-36) g/dl RDW (11.5-14.0) % Plt Count (150-450) K/mm3 MPV (6-9.5) fl Gran % (36.0-66.0) % Lymphocytes % (24.0-44.0) % Monocytes % (0.0-12.0) % Eosinophils % (0.00-5.0) % Basophils % (0.0-0.4) % Segmented Neutrophils (36.-66.) % Band Neutrophils (0.0-2.0) % Lymphocytes (Manual) (24-44) % Monocytes (Manual) (0.0-12.0) % Basophils # (0-0.4) Nucleated RBCs % Differential Comment Platelet Estimate (NORMAL) Hypochromasia Poikilocytosis Anisocytosis VBG pH (7.32-7.42) VBG pCO2 at Pat Temp (42-55) mm/Hg VBG pO2 at Pat Temp (25-40) mm/Hg VBG HCO3 (22-28) meq/L VBG O2 Sat (Wanda) (95-100) VBG Base Excess (-2.0-2.0) VBG Hemoglobin VBG Carboxyhemoglobin (0.0-6.9) % T HGB POC Potassium (3.5-5.1) Sodium (136-145) mEq/L Potassium (3.5-5.1) mEq/L Chloride (98-107) mEq/L Carbon Dioxide (21-32) mEq/L Anion Gap (5-15) MEQ/L BUN (9-20) mg/dL Creatinine (0.55-1.30) mg/dl Estimated GFR ML/MIN Glucose (70-110) MG/DL Hemoglobin A1c (4.5-6.2) Lactic Acid 1.9 (0.4-2.0) Calcium (8.5-10.1) mg/dL Magnesium (1.8-2.4) mg/dL Total Bilirubin (0.2-1.0) mg/dL AST (15-37) U/L ALT (12-78) U/L Alkaline Phosphatase (46-116) U/L Serum Total Protein (6.4-8.2) gm/dL Albumin (3.4-5.0) g/dL Assessment/Plan (1) Alcohol withdrawal Current Visit: Yes Status: Acute Assessment & Plan: continue ciwa with ativan prn telemetry seizure precautions electrolyte replacement iv fluids turn down to 75 mL/h from 150 mL/h today advance diet repeat am labs continue tx for copd exacerbation continue prednisone for thrombocytopenia secondary to alcoholic liver disease hold anticoagulants with severe thrombocytopenia Code(s): F10.239 - ALCOHOL DEPENDENCE WITH WITHDRAWAL, UNSPECIFIED (2) Right rib fracture Current Visit: Yes Status: Acute Code(s): S22.31XA - FRACTURE OF ONE RIB, RIGHT SIDE, INIT FOR CLOS FX (3) COPD with exacerbation Current Visit: Yes Status: Acute Code(s): J44.1 - CHRONIC OBSTRUCTIVE PULMONARY DISEASE W (ACUTE) EXACERBATION (4) Hyperglycemia Current Visit: Yes Status: Acute Code(s): R73.9 - HYPERGLYCEMIA, UNSPECIFIED (5) Hypertension Current Visit: Yes Status: Chronic Code(s): I10 - ESSENTIAL (PRIMARY) HYPERTENSION (6) Hypokalemia Current Visit: Yes Status: Acute Code(s): E87.6 - HYPOKALEMIA (7) Chronic pancreatitis Current Visit: Yes Status: Chronic Code(s): K86.1 - OTHER CHRONIC PANCREATITIS (8) Thrombocytopenia Current Visit: Yes Status: Chronic
[2017-03-24] MEDS: MORPHINE SULFATE 4 MG INJ IV PRN ×2 (11:11→17:14)
[2017-03-24] MEDS: Klor Con 10 MEQ PO SCH ×2 (17:12→21:50)
[2017-03-24] MEDS: NovoLOG Insulin SQ PRN ×2 (17:12→21:56)
[2017-03-25] MEDS: Unasyn 3GM / NaCl 100ML 3 GM/100 ML IVPB IV SCH ×4 (03:14→21:46)
[2017-03-25 05:37] LABS: Hematocrit 29.6 % (42-50); Mean Cell Volume 99.3 fl (78-100); Mean Corpuscular Hgb Concent. 33.8 g/dl (32-36); Mean Platelet Volume 12.7 fl (6-9.5); Red Blood Count 2.98 M/mm3 (4.1-5.6); Red Cell Distribution Width 12.6 % (11.5-14.0); White Blood Count 4.5 K/mm3 (4.0-10.5)
[2017-03-25 05:41] LABS: Mean Corpuscular Hemoglobin 33.5 pg (26-32)
[2017-03-25 05:42] LABS: Platelet Count 26 K/mm3 (150-450)
[2017-03-25 06:08] LABS: ALBUMIN 2.5 g/dL (3.4-5.0); ALKALINE PHOSPHATASE 83 U/L (46-116); ANION GAP 10.8 MEQ/L (5-15); BLOOD UREA NITROGEN 19 mg/dL (9-20); CHLORIDE 104 mEq/L (98-107); Calcium 7.7 mg/dL (8.5-10.1); Carbon Dioxide 29.2 mEq/L (21-32); Creatinine 1 0.71 mg/dl (0.55-1.30); EST GLOMERULAR FILTRATION RATE > 60 ML/MIN; Glucose 125 MG/DL (70-110); LIPASE 248 U/L (73-393); MAGNESIUM 1.5 mg/dL (1.8-2.4); SGOT/AST 99 U/L (15-37); SGPT/ALT 30 U/L (12-78); SODIUM 141 mEq/L (136-145); Total Protein 5.3 gm/dL (6.4-8.2)
[2017-03-25 06:22] LABS: Potassium 2.8 mEq/L (3.5-5.1)
[2017-03-25] MEDS: POTASSIUM CHLORIDE 20 mEq IN WATER 100ML 20 MEQ/100 ML BAG IV SCH ×4 (06:42→16:19)
[2017-03-25 07:08] LABS: Slide Review YES
[2017-03-25] MEDS: Ativan 2 MG/1 ML VIAL IV PRN ×5 (08:26→22:30)
[2017-03-25] MEDS: MORPHINE SULFATE 4 MG INJ IV PRN ×3 (08:36→18:59)
[2017-03-25] MEDS: Klor Con 10 MEQ PO SCH ×3 (11:19→21:49)
[2017-03-25] MEDS: FOLATE 1 MG PO SCH (11:19)
[2017-03-25] MEDS: Lopressor 50 MG PO SCH ×2 (11:19→21:49)
[2017-03-25] MEDS: THERAGRAN MULTIVITAMIN PO SCH (11:19)
[2017-03-25] MEDS: DELTASONE 20 MG PO SCH (11:19)
[2017-03-25] MEDS: Pepcid 20 MG VIAL IV SCH ×2 (11:19→21:47)
[2017-03-25] MEDS: VITAMIN B-1 100 MG PO SCH (11:19)
[2017-03-25] MEDS: Magnesium 1 Gm / 100 Ml D5W*** 100 ML IV SCH ×2 (11:33→12:24)
--- NOTE | 2017-03-25 11:35 | PCM.NOTE ---
Date and Time: 03/25/17 1133 Subjective Assessment: still shaking pain in right ribs lots of coughing eating ok no seizures Objective Exam General Appearance: mild distress Neurologic Exam: alert, oriented x 3, cooperative Skin Exam: warm, dry, jaundice Eye Exam: scleral icterus, pale conjunctivae Ears, Nose, Throat Exam: moist mucous membranes Neck Exam: non-tender, supple Respiratory Exam: crackles/rales, rhonchi, wheezing, other (tender right chest wall) Cardiovascular Exam: tachycardia, No murmur, No edema Gastrointestinal/Abdomen Exam: soft, normal bowel sounds, No tenderness, No distention OBJECTIVE DATA Vital Signs: Vital Signs - 24 hr Temp Pulse Resp BP Pulse Ox 03/25/17 11:25 97.9 F 96 H 18 138/94 92 L 03/25/17 08:00 18 03/25/17 07:46 96 H 18 96 03/25/17 07:40 99.1 F 93 H 18 179/98 92 L 03/25/17 04:00 98.7 F 91 H 16 145/97 93 L 03/25/17 00:00 98.4 F 86 19 111/71 94 L 03/24/17 22:09 96 H 12 92 L 03/24/17 20:00 98.1 F 108 H 16 121/76 92 L 03/24/17 16:00 98.3 F 99 H 21 133/92 95 Pain Assessment - Last Documented Pain Intensity 0 Pain Scale Used [facility] Intake and Output: Intake & Output 03/22/17 03/23/17 03/24/17 03/25/17 11:59 11:59 11:59 11:59 Intake Total 360 2653 3809 Output Total 1300 775 Balance 360 1973 3034 Weight 73.6 kg Lab Results: Accuchecks Date 03/25/17 Date 03/24/17 Time 07:30 Accucheck Value: 115 Accucheck Value: 174 Accucheck Value: 208 Lab Results-Last 24 Hours 03/24/17 03/25/17 03/25/17 Range/Units 14:54 04:50 04:50 WBC 4.5 (4.0-10.5) K/mm3 RBC 2.98 L (4.1-5.6) M/mm3 Hgb 10.0 L (12.5-18.0) gm/dl Hct 29.6 L (42-50) % MCV 99.3 (78-100) fl MCH 33.5 H (26-32) pg MCHC 33.8 (32-36) g/dl RDW 12.6 (11.5-14.0) % Plt Count 26 L* (150-450) K/mm3 MPV 12.7 H (6-9.5) fl Sodium 141 (136-145) mEq/L Potassium 3.2 L 2.8 L* (3.5-5.1) mEq/L Chloride 104 (98-107) mEq/L Carbon Dioxide 29.2 (21-32) mEq/L Anion Gap 10.8 (5-15) MEQ/L BUN 19 (9-20) mg/dL Creatinine 0.71 (0.55-1.30) mg/dl Estimated GFR > 60 ML/MIN Glucose 125 H (70-110) MG/DL Calcium 7.7 L (8.5-10.1) mg/dL Magnesium 1.5 L (1.8-2.4) mg/dL Total Bilirubin 2.90 H (0.2-1.0) mg/dL AST 99 H (15-37) U/L ALT 30 (12-78) U/L Alkaline Phosphatase 83 (46-116) U/L Serum Total Protein 5.3 L (6.4-8.2) gm/dL Albumin 2.5 L (3.4-5.0) g/dL Lipase 248 (73-393) U/L Slides for Path Review YES Assessment/Plan (1) Alcohol withdrawal Current Visit: Yes Status: Acute Assessment & Plan: continue ciwa continue steroid and nebs and unasyn for copd exacerbation and concern for possible aspiration prior to arrival continue steorid for alcohol induced thrombocytopenia replace electrolytes iv and po continue tele Code(s): F10.239 - ALCOHOL DEPENDENCE WITH WITHDRAWAL, UNSPECIFIED (2) Right rib fracture Current Visit: Yes Status: Acute Code(s): S22.31XA - FRACTURE OF ONE RIB, RIGHT SIDE, INIT FOR CLOS FX (3) COPD with exacerbation Current Visit: Yes Status: Acute Code(s): J44.1 - CHRONIC OBSTRUCTIVE PULMONARY DISEASE W (ACUTE) EXACERBATION (4) Hyperglycemia Current Visit: Yes Status: Acute Code(s): R73.9 - HYPERGLYCEMIA, UNSPECIFIED (5) Hypertension Current Visit: Yes Status: Chronic Code(s): I10 - ESSENTIAL (PRIMARY) HYPERTENSION (6) Hypokalemia Current Visit: Yes Status: Acute Code(s): E87.6 - HYPOKALEMIA (7) Chronic pancreatitis Current Visit: Yes Status: Chronic Code(s): K86.1 - OTHER CHRONIC PANCREATITIS (8) Thrombocytopenia Current Visit: Yes Status: Chronic
[2017-03-25] MEDS: Lactated Ringers 1,000 ML IV SCH ×2 (14:28→23:19)
[2017-03-25] MEDS: NovoLOG Insulin SQ PRN ×2 (16:53→21:50)
[2017-03-26] MEDS: Unasyn 3GM / NaCl 100ML 3 GM/100 ML IVPB IV SCH ×4 (04:20→21:45)
[2017-03-26] MEDS: Ativan 2 MG/1 ML VIAL IV PRN ×4 (04:24→18:44)
[2017-03-26 05:52] LABS: Hematocrit 29.7 % (42-50); Hemoglobin 9.9 gm/dl (12.5-18.0); Mean Cell Volume 100.7 fl (78-100); Mean Corpuscular Hgb Concent. 33.3 g/dl (32-36); Mean Platelet Volume 13.3 fl (6-9.5); Platelet Count 43 K/mm3 (150-450); Red Blood Count 2.95 M/mm3 (4.1-5.6); Red Cell Distribution Width 12.7 % (11.5-14.0); White Blood Count 5.3 K/mm3 (4.0-10.5)
[2017-03-26 05:57] LABS: Mean Corpuscular Hemoglobin 33.5 pg (26-32)
[2017-03-26 06:38] LABS: ALBUMIN 2.6 g/dL (3.4-5.0); ALKALINE PHOSPHATASE 96 U/L (46-116); ANION GAP 9.1 MEQ/L (5-15); BLOOD UREA NITROGEN 12 mg/dL (9-20); CHLORIDE 104 mEq/L (98-107); Calcium 7.8 mg/dL (8.5-10.1); Carbon Dioxide 31.9 mEq/L (21-32); EST GLOMERULAR FILTRATION RATE > 60 ML/MIN; Glucose 141 MG/DL (70-110); MAGNESIUM 1.5 mg/dL (1.8-2.4); Potassium 4.1 mEq/L (3.5-5.1); SGOT/AST 106 U/L (15-37); SGPT/ALT 55 U/L (12-78); SODIUM 141 mEq/L (136-145); Total Protein 5.6 gm/dL (6.4-8.2)
[2017-03-26] MEDS: MORPHINE SULFATE 4 MG INJ IV PRN ×2 (07:43→13:36)
[2017-03-26] MEDS: Ativan 1 MG PO PRN (07:43)
[2017-03-26 08:04] LABS: Slide Review YES
--- NOTE | 2017-03-26 08:14 | PCM.NOTE ---
Date and Time: 03/26/17811 Subjective Assessment: feeling a little better still coughing and having chest pain on the right shaking no abdominal pain Objective Exam General Appearance: no apparent distress, alert, other (tremors) Neurologic Exam: alert, oriented x 3, cooperative, normal mood/affect, nml cerebellar function, sensation nml, No motor deficits Skin Exam: normal color, warm, dry Eye Exam: PERRL, EOMI, eyes nml inspection Ears, Nose, Throat Exam: normal ENT inspection, pharynx normal, moist mucous membranes Neck Exam: normal inspection, non-tender, supple, full range of motion Respiratory Exam: rhonchi, wheezing Cardiovascular Exam: regular rate/rhythm, tachycardia Gastrointestinal/Abdomen Exam: soft, No tenderness, No mass Extremity Exam: normal inspection, normal range of motion Back Exam: normal inspection, normal range of motion, No CVA tenderness, No vertebral tenderness Male Genitalia Exam: deferred Rectal Exam: deferred OBJECTIVE DATA Vital Signs: Vital Signs - 24 hr Temp Pulse Resp BP Pulse Ox 03/26/17 07:28 98 F 91 H 18 138/94 96 03/26/17 04:00 98.2 F 76 19 155/98 98 03/26/17 00:00 98.1 F 84 16 150/100 98 03/25/17 20:15 87 10 L 96 03/25/17 20:00 98.5 F 83 16 156/104 91 L 03/25/17 16:00 98.1 F 88 18 151/88 97 03/25/17 12:00 18 03/25/17 11:25 97.9 F 96 H 18 138/94 92 L Oxygen-Last 24 hours O2 Percentage 2 Liters = 28% O2 Percentage 2 Liters = 28% Pain Assessment - Last Documented Pain Intensity 8 Pain Scale Used 0-10 Pain Scale Intake and Output: Intake & Output 03/23/17 03/24/17 03/25/17 03/26/17 11:59 11:59 11:59 11:59 Intake Total 360 5293 3809 4576 Output Total 1300 775 Balance 360 8624 3034 4576 Weight 73.6 kg Lab Results: Accuchecks Date 03/25/17 Date 03/25/17 Date 03/25/17 Time 16:27 Time 11:30 Accucheck Value: 162 Accucheck Value: 233 Accucheck Value: 150 Lab Results-Last 24 Hours 03/25/17 03/26/17 03/26/17 Range/Units 12:31 05:02 05:02 WBC 5.3 (4.0-10.5) K/mm3 RBC 2.95 L (4.1-5.6) M/mm3 Hgb 9.9 L (12.5-18.0) gm/dl Hct 29.7 L (42-50) % MCV 100.7 H (78-100) fl MCH 33.5 H (26-32) pg MCHC 33.3 (32-36) g/dl RDW 12.7 (11.5-14.0) % Plt Count 43 L (150-450) K/mm3 MPV 13.3 H (6-9.5) fl Sodium 141 (136-145) mEq/L Potassium 3.0 L* 4.1 (3.5-5.1) mEq/L Chloride 104 (98-107) mEq/L Carbon Dioxide 31.9 (21-32) mEq/L Anion Gap 9.1 (5-15) MEQ/L BUN 12 (9-20) mg/dL Creatinine 0.80 (0.55-1.30) mg/dl Estimated GFR > 60 ML/MIN Glucose 141 H (70-110) MG/DL Calcium 7.8 L (8.5-10.1) mg/dL Magnesium 1.5 L (1.8-2.4) mg/dL Total Bilirubin 2.20 H (0.2-1.0) mg/dL AST 106 H (15-37) U/L ALT 55 (12-78) U/L Alkaline Phosphatase 96 (46-116) U/L Serum Total Protein 5.6 L (6.4-8.2) gm/dL Albumin 2.6 L (3.4-5.0) g/dL Slides for Path Review YES Assessment/Plan (1) Alcohol withdrawal Current Visit: Yes Status: Acute Assessment & Plan: continue ciwa continue electrolyte replacement continue tx of copd exacerbation and coverage for the aspiration Code(s): F10.239 - ALCOHOL DEPENDENCE WITH WITHDRAWAL, UNSPECIFIED (2) Right rib fracture Current Visit: Yes Status: Acute Code(s): S22.31XA - FRACTURE OF ONE RIB, RIGHT SIDE, INIT FOR CLOS FX (3) COPD with exacerbation Current Visit: Yes Status: Acute Code(s): J44.1 - CHRONIC OBSTRUCTIVE PULMONARY DISEASE W (ACUTE) EXACERBATION (4) Hyperglycemia Current Visit: Yes Status: Acute Code(s): R73.9 - HYPERGLYCEMIA, UNSPECIFIED (5) Hypertension Current Visit: Yes Status: Chronic Code(s): I10 - ESSENTIAL (PRIMARY) HYPERTENSION (6) Hypokalemia Current Visit: Yes Status: Acute Code(s): E87.6 - HYPOKALEMIA (7) Chronic pancreatitis Current Visit: Yes Status: Chronic Code(s): K86.1 - OTHER CHRONIC PANCREATITIS (8) Thrombocytopenia Current Visit: Yes Status: Chronic
[2017-03-26] MEDS: Norco 10/325 MG Tablet PO PRN ×3 (08:37→21:40)
[2017-03-26] MEDS: Magnesium 1 Gm / 100 Ml D5W*** 100 ML IV SCH ×2 (09:11→10:22)
[2017-03-26] MEDS: Klor Con 10 MEQ PO SCH ×3 (10:22→21:41)
[2017-03-26] MEDS: DELTASONE 20 MG PO SCH (10:22)
[2017-03-26] MEDS: THERAGRAN MULTIVITAMIN PO SCH (10:22)
[2017-03-26] MEDS: MAG-OX 400 PO SCH ×2 (10:22→21:41)
[2017-03-26] MEDS: Pepcid 20 MG VIAL IV SCH ×2 (10:22→21:48)
[2017-03-26] MEDS: Lopressor 50 MG PO SCH ×2 (10:22→21:41)
[2017-03-26] MEDS: VITAMIN B-1 100 MG PO SCH (10:22)
[2017-03-26] MEDS: FOLATE 1 MG PO SCH (10:22)
[2017-03-26] MEDS: NovoLOG Insulin SQ PRN ×3 (12:28→21:44)
[2017-03-27] MEDS: Ativan 2 MG/1 ML VIAL IV PRN ×5 (00:16→20:53)
[2017-03-27] MEDS: Norco 10/325 MG Tablet PO PRN ×5 (02:41→22:43)
[2017-03-27] MEDS: Unasyn 3GM / NaCl 100ML 3 GM/100 ML IVPB IV SCH ×4 (04:23→22:50)
[2017-03-27 05:59] LABS: Granulocyte Absolute (ANC) 3.93 (1.4-6.9); Hematocrit 29.3 % (42-50); Hemoglobin 9.8 gm/dl (12.5-18.0); Mean Cell Volume 101.7 fl (78-100); Mean Corpuscular Hgb Concent. 33.4 g/dl (32-36); Mean Platelet Volume 12.9 fl (6-9.5); Platelet Count 66 K/mm3 (150-450); Red Blood Count 2.88 M/mm3 (4.1-5.6); White Blood Count 5.1 K/mm3 (4.0-10.5)
[2017-03-27 06:24] LABS: ALBUMIN 2.6 g/dL (3.4-5.0); ALKALINE PHOSPHATASE 99 U/L (46-116); ANION GAP 6.2 MEQ/L (5-15); BLOOD UREA NITROGEN 11 mg/dL (9-20); CHLORIDE 101 mEq/L (98-107); Calcium 7.4 mg/dL (8.5-10.1); Carbon Dioxide 36.2 mEq/L (21-32); EST GLOMERULAR FILTRATION RATE > 60 ML/MIN; Glucose 168 MG/DL (70-110); MAGNESIUM 1.5 mg/dL (1.8-2.4); Potassium 4.4 mEq/L (3.5-5.1); SGOT/AST 104 U/L (15-37); SGPT/ALT 75 U/L (12-78); SODIUM 139 mEq/L (136-145); Total Protein 5.5 gm/dL (6.4-8.2)
[2017-03-27 06:57] LABS: ATYPICAL LYMPHS 2 %; Lymphocytes 6 % (24-44); Monocyte 3 % (0.0-12.0); Neutrophils 89 % (36.-66.); Nucleated Red Blood Cell 1 %; Polychromasia 1+; Stomatocyte 3+; Total Cells Counted 100
[2017-03-27 06:58] LABS: ANISOCYTOSIS 1+; Platelet Estimate DECREASED (NORMAL); Rouleau 1+
[2017-03-27] MEDS: Ativan 1 MG PO PRN (07:13)
[2017-03-27] MEDS: NovoLOG Insulin SQ PRN ×3 (07:18→17:53)
[2017-03-27] MEDS: Lactated Ringers 1,000 ML IV SCH ×2 (08:15→22:42)
[2017-03-27] MEDS ORDERED: Ativan 2 MG/1 ML VIAL IV PRN (08:28)
--- NOTE | 2017-03-27 08:28 | PCM.NOTE ---
Date and Time: 03/27/17817 Subjective Assessment: improving but had 13 mg of iv ativan in the last 24 hours still but his ciwa scores look pretty good he is feeling mbtter looking forward to going home he is eatin gwell only having the chest pain on th right with the fracture and with some shortenss of breath intermittently as well. Objective Exam General Appearance: alert, anxiety Neurologic Exam: oriented x 3, cooperative, other (tremors bilateral upper extremities) Skin Exam: warm, dry Ears, Nose, Throat Exam: moist mucous membranes Neck Exam: non-tender, supple Respiratory Exam: rhonchi, wheezing Cardiovascular Exam: regular rate/rhythm, normal heart sounds Gastrointestinal/Abdomen Exam: soft, normal bowel sounds, No tenderness, No distention Extremity Exam: No calf tenderness, No pedal edema OBJECTIVE DATA Vital Signs: Vital Signs - 24 hr Temp Pulse Resp BP Pulse Ox 03/27/17 07:38 150/95 03/27/17 07:12 98 F 75 20 162/103 98 03/27/17 04:00 97.8 F 84 18 157/108 95 03/27/17 00:00 98.0 F 84 18 140/95 93 L 03/26/17 21:14 77 16 94 L 03/26/17 20:00 98.5 F 83 16 161/101 96 03/26/17 14:40 98.1 F 95 H 20 136/90 94 L 03/26/17 11:24 98.4 F 97 H 18 120/91 95 Oxygen-Last 24 hours O2 Percentage 2 Liters = 28% Pain Assessment - Last Documented Pain Intensity 9 Pain Scale Used 0-10 Pain Scale Intake and Output: Intake & Output 03/24/17 03/25/17 03/26/17 03/27/17 11:59 11:59 11:59 11:59 Intake Total 3273 3809 4816 3313 Output Total 1300 319 307 1271 Balance 1973 3034 4416 2313 Weight 73.6 kg Lab Results: Accuchecks Date 03/27/17 Date 03/26/17 Accucheck Value: 161 Accucheck Value: 188 Accucheck Value: 181 Accucheck Value: 174 Lab Results-Last 24 Hours 03/27/17 03/27/17 Range/Units 05:15 05:15 WBC 5.1 (4.0-10.5) K/mm3 RBC 2.88 L (4.1-5.6) M/mm3 Hgb 9.8 L (12.5-18.0) gm/dl Hct 29.3 L (42-50) % MCV 101.7 H (78-100) fl MCH 34.0 H (26-32) pg MCHC 33.4 (32-36) g/dl RDW 13.0 (11.5-14.0) % Plt Count 66 L (150-450) K/mm3 MPV 12.9 H (6-9.5) fl Segmented Neutrophils 89 H (36.-66.) % Lymphocytes (Manual) 6 L (24-44) % Monocytes (Manual) 3 (0.0-12.0) % Nucleated RBCs 1 % Differential Comment ABNORMAL Atypical Lymphocytes 2 % Platelet Estimate DECREASED (NORMAL) Polychromasia 1+ Anisocytosis 1+ Stomatocytes 3+ Rouleaux 1+ Smear Path Review Pending Sodium 139 (136-145) mEq/L Potassium 4.4 (3.5-5.1) mEq/L Chloride 101 (98-107) mEq/L Carbon Dioxide 36.2 H (21-32) mEq/L Anion Gap 6.2 (5-15) MEQ/L BUN 11 (9-20) mg/dL Creatinine 0.90 (0.55-1.30) mg/dl Estimated GFR > 60 ML/MIN Glucose 168 H (70-110) MG/DL Calcium 7.4 L (8.5-10.1) mg/dL Magnesium 1.5 L (1.8-2.4) mg/dL Total Bilirubin 2.10 H (0.2-1.0) mg/dL AST 104 H (15-37) U/L ALT 75 (12-78) U/L Alkaline Phosphatase 99 (46-116) U/L Serum Total Protein 5.5 L (6.4-8.2) gm/dL Albumin 2.6 L (3.4-5.0) g/dL Multi-Disciplinary Progress Notes: Multi-Disciplinary Progress Notes 03/26/17 16:54 Nutrition Note by Elsie Lovell Diet advanced to regular. SUNIL Morrissey Initialized on 03/26/17 16:54 - END OF NOTE Assessment/Plan (1) Alcohol withdrawal Current Visit: Yes Status: Acute Assessment & Plan: ciwa improving but used 13 mg of ativan in last 24h wean the ativan to 1mg q4h prn IV and monitor for response hopeful for home tomorrow add gabapentin to help with withdrawal and pain steroids are helping the thrombocytopenia will wean slightly still with wheezing on exam covered for possible aspiration with the unasyn still requires O2 electrolytes better increase magnesium po and decrease po potassium Code(s): F10.239 - ALCOHOL DEPENDENCE WITH WITHDRAWAL, UNSPECIFIED (2) Right rib fracture Current Visit: Yes Status: Acute Code(s): S22.31XA - FRACTURE OF ONE RIB, RIGHT SIDE, INIT FOR CLOS FX (3) COPD with exacerbation Current Visit: Yes Status: Acute Code(s): J44.1 - CHRONIC OBSTRUCTIVE PULMONARY DISEASE W (ACUTE) EXACERBATION (4) Hyperglycemia Current Visit: Yes Status: Acute Code(s): R73.9 - HYPERGLYCEMIA, UNSPECIFIED (5) Hypertension Current Visit: Yes Status: Chronic Code(s): I10 - ESSENTIAL (PRIMARY) HYPERTENSION (6) Hypokalemia Current Visit: Yes Status: Acute Code(s): E87.6 - HYPOKALEMIA (7) Chronic pancreatitis Current Visit: Yes Status: Chronic Code(s): K86.1 - OTHER CHRONIC PANCREATITIS (8) Thrombocytopenia Current Visit: Yes Status: Chronic
[2017-03-27] MEDS: Pepcid 20 MG VIAL IV SCH ×2 (08:39→08:42)
[2017-03-27] MEDS: Lopressor 50 MG PO SCH ×2 (08:40→22:43)
[2017-03-27] MEDS: FOLATE 1 MG PO SCH (08:40)
[2017-03-27] MEDS: DELTASONE 20 MG PO SCH (08:40)
[2017-03-27] MEDS: THERAGRAN MULTIVITAMIN PO SCH (08:41)
[2017-03-27] MEDS: MAG-OX 400 PO SCH ×2 (08:41→22:43)
[2017-03-27] MEDS: NEURONTIN 300 MG PO SCH ×3 (08:41→22:43)
[2017-03-27] MEDS: VITAMIN B-1 100 MG PO SCH (08:41)
[2017-03-27] MEDS: Klor Con 10 MEQ PO SCH ×2 (08:42→22:43)
[2017-03-27] MEDS: DUONEB 0.5-3 MG/3 ml Neb IH SCH ×3 (11:45→19:58)
[2017-03-28] MEDS: NovoLOG Insulin SQ PRN ×2 (00:12→12:28)
[2017-03-28] MEDS: Ativan 2 MG/1 ML VIAL IV PRN ×2 (02:18→06:49)
[2017-03-28 05:45] LABS: Hematocrit 29.3 % (42-50); Hemoglobin 9.6 gm/dl (12.5-18.0); Mean Cell Volume 103.5 fl (78-100); Mean Corpuscular Hemoglobin 33.9 pg (26-32); Mean Corpuscular Hgb Concent. 32.8 g/dl (32-36); Mean Platelet Volume 12.1 fl (6-9.5); Platelet Count 103 K/mm3 (150-450); Red Blood Count 2.83 M/mm3 (4.1-5.6); Red Cell Distribution Width 13.4 % (11.5-14.0); White Blood Count 6.8 K/mm3 (4.0-10.5)
[2017-03-28] MEDS: Unasyn 3GM / NaCl 100ML 3 GM/100 ML IVPB IV SCH ×2 (05:55→09:29)
[2017-03-28] MEDS: DUONEB 0.5-3 MG/3 ml Neb IH SCH ×2 (06:56→10:30)
[2017-03-28 07:18] LABS: ALBUMIN 2.5 g/dL (3.4-5.0); ALKALINE PHOSPHATASE 105 U/L (46-116); ANION GAP 7.4 MEQ/L (5-15); BLOOD UREA NITROGEN 8 mg/dL (9-20); CHLORIDE 103 mEq/L (98-107); Calcium 7.8 mg/dL (8.5-10.1); Carbon Dioxide 34.5 mEq/L (21-32); Creatinine 1 0.83 mg/dl (0.55-1.30); EST GLOMERULAR FILTRATION RATE > 60 ML/MIN; Glucose 140 MG/DL (70-110); MAGNESIUM 1.5 mg/dL (1.8-2.4); Potassium 3.7 mEq/L (3.5-5.1); SGOT/AST 105 U/L (15-37); SGPT/ALT 98 U/L (12-78); SODIUM 141 mEq/L (136-145); Total Protein 5.2 gm/dL (6.4-8.2)
[2017-03-28] MEDS: DELTASONE 20 MG PO SCH (08:00)
[2017-03-28] MEDS: NEURONTIN 300 MG PO SCH (08:00)
[2017-03-28] MEDS: VITAMIN B-1 100 MG PO SCH (08:00)
[2017-03-28] MEDS: Klor Con 10 MEQ PO SCH (08:01)
[2017-03-28] MEDS: Norco 10/325 MG Tablet PO PRN (08:01)
[2017-03-28] MEDS: MAG-OX 400 PO SCH (08:01)
[2017-03-28] MEDS: THERAGRAN MULTIVITAMIN PO SCH (08:01)
[2017-03-28] MEDS: Lopressor 50 MG PO SCH (08:01)
[2017-03-28] MEDS: FOLATE 1 MG PO SCH (08:01)
[2017-03-28] MEDS: Pepcid 20 MG VIAL IV SCH (08:02)
[2017-03-28] MEDS ORDERED: DELTASONE 10 MG PO SCH (10:00)
[2017-03-28 10:42] VITALS: O2SAT 95
[2017-03-28 11:54] VITALS: BP 161/98; PULSE 76
--- NOTE | 2017-03-28 12:52 | PCM.DS ---
Discharge Summary Date of Admission: 03/23/17 08:27 Date of Discharge: 03/28/17 Admitting Physician: AMBREEN PADILLA Primary Care Provider: AMBREEN PADILLA Allergies Allergies No Known Drug Allergies Allergy (Verified 03/22/17 17:45) Hospital Summary - Hospital Course Hospital Course: He was brought in by his family for shortness of breath and chest pain. He was having chest pain on the right side and admitted to heavy drinking for the previous several months. His alcohol level was 380 at presentation. He did not recall any trauma to the chest but CT showed right rib fracture that corresponded to the pain. EKG and CT PE protocol showed no cardiopulmonary cause to this. He did admit to daily vomiting and lipase was elevated. He had significant wheezing and required some O2 initially. He was admitted to [facility] protocol for alcohol withdrawal with high scores and high doses of IV ativan needed for shakes and some hallucinations this improved by day 5 and was weaned to 5mg of IV ativan on the day prior to discharge and his gait improved to being able to walk without assistance. He was also started on gabapentin and sent home on this and rx to continue librium po as outpatient with quick taper. He has been through alcohol treatment many times and is usually compliant for long periods of time between relapses and says he has no plans to ever drink again. For his pancreatitis his lipase improved and he began to tolerate a regular diet. He had severe potassium and magnesium depletion that was replace IV and po. He had severe thrombocytopenia due to the alcoholic liver disease this improved with prednisone treatment which initially contraindicated anticoagulation. He was having COPD exacerbation as well and given his intoxication on presentation he was covered for aspiration pneumonia and treated with steroids and nebs and was improving and weaned to room air prior to discharge. With his right rib fracture he was treated with morphine and weaned to hydrocodone. NSAIDS contraindicated with his sever thrombocytopenia. With his substance abuse history and discharge with benzo no narcotics were written for at discharge and will continue the gabapentin and tylenol. - Vitals & Intake/Output Vital Signs: Vital Signs Temperature 98.7 F 03/28/17 11:53 Pulse Rate 76 03/28/17 11:53 Respiratory Rate 20 03/28/17 12:00 Blood Pressure 161/98 03/28/17 11:53 O2 Sat by Pulse Oximetry 95 03/28/17 11:53 Oxygen-Last Documented O2 Percentage 2 Liters = 28% Intake & Output: Intake & Output 03/26/17 03/27/17 03/28/17 03/29/17 11:59 11:59 11:59 11:59 Intake Total 4816 3673 2207 Output Total 400 1000 Balance 4416 4775 2207 - Lab Result Diagrams: 03/28/17 05:10 03/28/17 05:10 Lab Results-Last 24 Hrs: Accuchecks Date 03/28/17 Date 03/28/17 Date 03/27/17 Date 03/27/17 Time 11:30 Time 07:30 Time 21:30 Accucheck Value: 233 Accucheck Value: 145 Accucheck Value: 180 Accucheck Value: 322 Lab Results-Last 24 Hours 03/27/17 03/28/17 03/28/17 Range/Units 05:15 05:10 05:10 WBC 6.8 (4.0-10.5) K/mm3 RBC 2.83 L (4.1-5.6) M/mm3 Hgb 9.6 L (12.5-18.0) gm/dl Hct 29.3 L (42-50) % MCV 103.5 H (78-100) fl MCH 33.9 H (26-32) pg MCHC 32.8 (32-36) g/dl RDW 13.4 (11.5-14.0) % Plt Count 103 L (150-450) K/mm3 MPV 12.1 H (6-9.5) fl Smear Path Review Sodium 141 (136-145) mEq/L Potassium 3.7 (3.5-5.1) mEq/L Chloride 103 (98-107) mEq/L Carbon Dioxide 34.5 H (21-32) mEq/L Anion Gap 7.4 (5-15) MEQ/L BUN 8 L (9-20) mg/dL Creatinine 0.83 (0.55-1.30) mg/dl Estimated GFR > 60 ML/MIN Glucose 140 H (70-110) MG/DL Calcium 7.8 L (8.5-10.1) mg/dL Magnesium 1.5 L (1.8-2.4) mg/dL Total Bilirubin 1.30 H (0.2-1.0) mg/dL AST 105 H (15-37) U/L ALT 98 H (12-78) U/L Alkaline Phosphatase 105 (46-116) U/L Serum Total Protein 5.2 L (6.4-8.2) gm/dL Albumin 2.5 L (3.4-5.0) g/dL Micro Results-Entire Visit: Accuchecks Date 03/28/17 Date 03/28/17 Date 03/27/17 Date 03/27/17 Time 11:30 Time 07:30 Time 21:30 Accucheck Value: 233 Accucheck Value: 145 Accucheck Value: 180 Accucheck Value: 322 - Procedures and Test Procedures and Tests throughout Hospitalization: Therapy Orders & Screens 03/25/17 20:14 Oxygen NASAL CANNULA 3 lpm Comment: Diagnosis: alcohol withdrawal 03/26/17 23:53 Respiratory MDI PRN Comment: ALBUTEROL 2 PUFFS QIDPRN FOR SOB/WHEEZING Diagnosis: alcohol withdrawal 03/27/17 08:19 PT Eval & Treat (MD Order) ROUTINE Reason for Eval:: impaired gait Diagnosis: alcohol withdrawal 03/27/17 19:00 Respiratory Nebulizer QID Comment: DUONEB QID Diagnosis: alcohol withdrawal Discharge Exam General Appearance: no apparent distress Neurologic Exam: alert, oriented x 3, cooperative Skin Exam: warm, dry Ears, Nose, Throat Exam: moist mucous membranes Neck Exam: non-tender, supple Respiratory Exam: wheezing (improved mild), other (tendernes right 6 th rib), No respiratory distress Cardiovascular Exam: regular rate/rhythm, normal heart sounds Gastrointestinal/Abdomen Exam: soft, normal bowel sounds, No tenderness Extremity Exam: normal inspection, No pedal edema, No tenderness Back Exam: normal inspection Final Diagnosis/Problem List - Final Discharge Diagnosis/Problem (1) Alcohol withdrawal Status: Acute (2) Right rib fracture Status: Acute (3) COPD with exacerbation Status: Acute (4) Hyperglycemia Status: Acute (5) Hypertension Status: Chronic (6) Hypokalemia Status: Acute (7) Chronic pancreatitis Status: Chronic (8) Thrombocytopenia Status: Chronic - Discharge Discharge Date: 03/28/17 Disposition: Home, Self-Care Condition: Stable Prescriptions: New Amoxicillin/Potassium Clav [Augmentin 875-125 Tablet] 1 each PO BID #8 tablet Prednisone 10 mg [Deltasone 10 mg] 30 mg PO UD #24 tablet Gabapentin 300 mg PO TID #90 capsule Potassium Chloride 10 Meq Tab* [Klor Con 10 MEQ] 20 meq PO BID #120 tab Chlordiazepoxide HCl 25 mg [Librium 25 mg] 25 mg PO UD #10 capsule Magnesium Oxide 400 mg [Mag-Ox 400] 800 mg PO BID #120 tablet Metoprolol Tartrate 100 mg PO BID #60 tablet Omeprazole 20 MG [Prilosec 20 mg] 20 mg PO DAILY #30 capsule.dr Fitzpatrick Zonisamide 1 cap PO UD Carbidopa/Levodopa [Carbidopa-Levodopa 25-100 Tab] 1 tab PO UD Albuterol Common Canister [Proventil Common Canister] 1 puff IH QID PRN #1 inhaler Instructions: Pancreatitis, Hypokalemia Follow up with: AMBREEN PADILLA [Primary Care Provider] - 04/04/17 10:00 am Forms: Discharge Instructions, Patient Portal Information
== END 2017-03-28 13:45 | disposition home or self-care (01) | DRG 897 ==
LOC: ED 17:28 → MED SURG 23:49 → OBSVTOIN 03-23 08:27
PROVIDERS: ADMIT Family Medicine; ATTEND Family Medicine
DX: R06.02 Shortness of breath (principal); F10.239 Alcohol dependence with withdrawal, unspecified; F10.20 Alcohol dependence, uncomplicated; K85.20 Alcohol induced acute pancreatitis without necrosis or infection; J44.1 Chronic obstructive pulmonary disease with (acute) exacerbation; K75.9 Inflammatory liver disease, unspecified; K86.1 Other chronic pancreatitis; S22.31XA Fracture of one rib, right side, initial encounter for closed fracture; R73.9 Hyperglycemia, unspecified; I10 Essential (primary) hypertension; E87.6 Hypokalemia; D69.6 Thrombocytopenia, unspecified; Z79.899 Other long term (current) drug therapy; Z86.73 Personal history of transient ischemic attack (TIA), and cerebral infarction without residual deficits; I25.10 Atherosclerotic heart disease of native coronary artery without angina pectoris; M19.90 Unspecified osteoarthritis, unspecified site; B19.20 Unspecified viral hepatitis C without hepatic coma; Z72.0 Tobacco use
CPT/HCPCS: 36415; 36600; 71045; 71260; 74177; 80048; 80053; 81000; 82375; 82803; 82805; 82962; 83036; 83605; 83690; 83735; 83880; 84132; 84484; 85025; 85027; 85379; 87040; 87086; 93005; 94640; 94760; 99285; G0481; J0295; J2060; J2270; J2543; J3475; J3480; A9270-GY

== ENCOUNTER 2017-11-20 19:38 | Emergency (ER) | payer MEDICARE ==
[2017-11-20] MEDS ORDERED: Sodium Chloride 0.9% 1000 ML 1,000 ML IV STA ×3 (20:02→21:23)
[2017-11-20] MEDS ORDERED: Zofran 4 MG/2 ML VIAL IV ONE (20:04)
[2017-11-20] MEDS ORDERED: THIAMINE 200 MG/2 ML IV ONE (20:04)
[2017-11-20] MEDS ORDERED: THIAMINE 200 MG/2 ML ONE (20:07)
[2017-11-20] MEDS ORDERED: Sodium Chloride 0.9% 1000 ML 2,000 ML ONE (20:07)
[2017-11-20] MEDS ORDERED: Zofran 4 MG/2 ML VIAL ONE (20:07)
--- NOTE | 2017-11-20 20:09 | ERPHSYRPT ---
- History of Present Illness Time Seen by Provider: 11/20/17 20:05 Historian: patient Exam Limitations: no limitations Patient Subjective Stated Complaint: Pt arrives to ER with c/o abdominal pain for past 24 hours from pancreatitis states has been drinking every day for the past 4 months, last drank this morning. Triage Nursing Assessment: hyperventilating, muscles cramping Physician History: 51-year-old white male with history of alcoholism, hepatitis C, pancreatitis, Arrives with complaint of epigastric pain of persistent nausea and vomiting symptoms since yesterday patient states he drinks a 12 pack every day for the past 4 months Past medical history includes TIA, COPD, coronary artery disease, high blood pressure, degenerative disc disease, osteoarthritis, hepatitis, pancreatitis, cardiac blockage, alcoholism Past surgical history includes neck surgery, sinus surgery, back surgery Social history positive tobacco use in the past states hasn't smoked for 6 months. Patient denies illicit drug use. Patient states he drinks daily for 12 pack a day for 4 months Timing/Duration: yesterday Activities at Onset: none Quality: cramping Abdominal Pain Onset Location: epigastric Pain Radiation: no radiation Severity of Pain-Max: moderate Severity of Pain-Current: moderate Associated Symptoms: back, nausea, vomiting, No chest pain, No diaphoresis, No diarrhea, No fever/chills, No fatigue, No headache, No heartburn, No loss of appetite, No neck pain, No rash, No shortness of breath, No syncope Previous symptoms: same symptoms as today Allergies/Adverse Reactions: No Known Drug Allergies Allergy (Verified 11/20/17 19:50) Home Medications: Promethazine HCl 25 mg [Phenergan 25 mg] 25 mg PO 11/20/17 [History] Hx Tetanus, Diphtheria Vaccination/Date Given: Yes (UNKNOWN) Hx Influenza Vaccination/Date Given: Yes Hx Pneumococcal Vaccination/Date Given: Yes - Review of Systems Constitutional: No Fever, No Chills Eyes: No Symptoms Ears, Nose, & Throat: No Symptoms Respiratory: Dyspnea Cardiac: No Chest Pain, No Edema, No Syncope Abdominal/Gastrointestinal: Abdominal Pain, Nausea, Vomiting, Diarrhea Genitourinary Symptoms: No Dysuria Musculoskeletal: No Back Pain, No Neck Pain Skin: No Rash Neurological: No Dizziness, No Focal Weakness, No Sensory Changes Psychological: No Symptoms Endocrine: No Symptoms All Other Systems: Reviewed and Negative - Past Medical History Pertinent Past Medical History: Yes Neurological History: TIA ENT History: No Pertinent History Cardiac History: Coronary Artery Disease, Hypertension Respiratory History: COPD Endocrine Medical History: No Pertinent History Musculoskeletal History: Degenerative Disk Disease, Osteoarthritis, Other GI Medical History: Hepatitis, Pancreatitis History: No Pertinent History Psycho-Social History: No Pertinent History Male Reproductive Disorders: No Pertinent History Other Medical History: CARDIAC BLOCKAGE, Hepatitis C, alcoholism - Past Surgical History Past Surgical History: Yes Neuro Surgical History: No Pertinent History Cardiac: No Pertinent History Respiratory: No Pertinent History Gastrointestinal: No Pertinent History Genitourinary: No Pertinent History Musculoskeletal: Orthopedic Surgery Male Surgical History: No Pertinent History Other Surgical History: NECK SURG IN MAR 2013, Lower back surgery x 2 in 1991, sinus surgery - Social History Smoking Status: Former smoker How long have you smoked: 3 Exposure to second hand smoke: Yes Drug Use: none Patient Lives Alone: No - Nursing Vital Signs Nursing Vital Signs: Initial Vital Signs Temperature 97.6 F 11/20/17 19:42 Pulse Rate 125 H 11/20/17 19:42 Respiratory Rate 26 H 11/20/17 19:42 Blood Pressure 118/89 11/20/17 19:42 O2 Sat by Pulse Oximetry 100 11/20/17 19:42 Pain Scale Pain Intensity 8 - Physical Exam General Appearance: moderate distress Eye Exam: PERRL/EOMI, eyes nml inspection Ears, Nose, Throat Exam: normal ENT inspection, pharynx normal, moist mucous membranes Neck Exam: normal inspection, non-tender, supple, full range of motion Respiratory Exam: normal breath sounds, lungs clear, No respiratory distress Cardiovascular Exam: normal peripheral pulses, tachycardia, No murmur Gastrointestinal/Abdomen Exam: soft, normal bowel sounds, tenderness ( epigastric tenderness) Back Exam: normal inspection, normal range of motion, No CVA tenderness, No vertebral tenderness Extremity Exam: normal inspection, normal range of motion, pelvis stable Neurologic Exam: alert, oriented x 3, cooperative, marketing developer II-XII nml as tested, normal mood/affect, nml cerebellar function, sensation nml, No motor deficits Skin Exam: normal color, warm, dry SpO2 Interpretation: normal (100%) SpO2: 100 Oxygen Delivery: Room Air - Course Nursing assessment & vital signs reviewed: Yes EKG Interpreted by Me: RATE (115 bpm), Sinus Tach, NORMAL AXIS, Other (EKG: Sinus tachycardia, 1 15 bpm, normal axis, nonspecific ST and T-wave abnormities) - CT Exams Abdomen/Pelvis CT Interpretation: Tele-radiologist Report (CT abdomen and pelvis: 1. Hepatomegaly and hepatic steatosis 2. There is sequela of chronic pancreatitis. There is subtle adjacent stranding. Correlate with pancreatic enzymes. 3. The prostate gland is enlarged. ) Ordered Tests: Active Orders 24 hr Category Date Time Status Accucheck STAT Care 11/20/17 20:04 Active EKG-ER Only STAT Care 11/20/17 20:02 Active IV Insertion STAT Care 11/20/17 20:02 Active ABDOMEN AND PELVIS W/0 CONTRAS [CT] Stat Exams 11/20/17 23:08 Taken ACETAMINOPHEN Stat Lab 11/20/17 21:05 Completed AMYLASE Stat Lab 11/20/17 21:05 Completed BLOOD CULTURE Stat Lab 11/20/17 22:30 Received CBC W DIFF Stat Lab 11/20/17 21:05 Completed CMP Stat Lab 11/20/17 21:05 Completed CULTURE,URINE Stat Lab 11/20/17 00:05 Received ETHYL ALCOHOL Stat Lab 11/20/17 21:05 Completed LIPASE Stat Lab 11/20/17 21:05 Completed Lactic Acid Stat Lab 11/20/17 21:07 Completed Lactic Acid Stat Lab 11/20/17 23:11 Results Manual Differential NC Stat Lab 11/20/17 21:05 Completed SALICYLATE Stat Lab 11/20/17 21:05 Completed TROPONIN Q3H Lab 11/20/17 00:38 Received TROPONIN Q3H Lab 11/20/17 21:05 Completed TROPONIN Q3H Lab 11/21/17 02:15 Ordered TROPONIN Q3H Lab 11/21/17 05:15 Ordered TROPONIN Q3H Lab 11/21/17 08:15 Ordered UA W/ MICROSCOPIC Stat Lab 11/20/17 00:05 Completed Urine Triage Profile Stat Lab 11/20/17 23:48 Completed Medication Summary Generic Name Dose Route Start Last Admin Trade Name Freq PRN Reason Stop Dose Admin Potassium Chloride 100 mls @ 50 mls/hr 11/20/17 22:15 11/20/17 22:36 Potassium Chloride 20 Meq In Water 100ml IV 11/21/17 02:14 50 mls/hr Q2H BRIDGET Administration Sodium Chloride 1,000 mls @ 100 mls/hr 11/21/17 00:15 11/21/17 00:27 Sodium Chloride 0.9% 1000 Ml IV 12/21/17 00:14 100 mls/hr .Q10H BRIDGET Administration Discontinued Medications Generic Name Dose Route Start Last Admin Trade Name [place] PRN Reason Stop Dose Admin Sodium Chloride 1,000 mls @ 999 mls/hr 11/20/17 20:02 11/20/17 22:02 Sodium Chloride 0.9% 1000 Ml IV 11/20/17 21:02 999 mls/hr .Q1H1M STA Administration Sodium Chloride 1,000 mls @ 999 mls/hr 11/20/17 20:04 11/20/17 20:32 Sodium Chloride 0.9% 1000 Ml IV 11/20/17 21:04 999 mls/hr .Q1H1M STA Administration Sodium Chloride Confirm 11/20/17 20:07 Sodium Chloride 0.9% 1000 Ml Administered 11/20/17 20:08 Dose 2,000 mls @ ud .ROUTE .STK-MED ONE Piperacillin Sod/Tazobactam Sod 3.375 gm in 100 mls @ 200 mls/hr 11/20/17 21: 17 11/20/17 22:19 Zosyn 3.375gm/100 Ml D5w IV 11/20/17 21:46 200 mls/hr STAT STA 200 mls/hr Administration Sodium Chloride 1,000 mls @ 999 mls/hr 11/20/17 21:23 11/20/17 21:44 Sodium Chloride 0.9% 1000 Ml IV 11/20/17 22:23 999 mls/hr .Q1H1M STA Administration Piperacillin Sod/Tazobactam Sod Confirm 11/20/17 22:06 Zosyn 3.375gm/100 Ml D5w Administered 11/20/17 22:07 Dose 3.375 gm in 100 mls @ ud IV .STK-MED ONE Sodium Chloride Confirm 11/20/17 22:13 Sodium Chloride 0.9% 1000 Ml Administered 11/20/17 22:14 Dose 1,000 mls @ ud .ROUTE .STK-MED ONE Lorazepam 1 mg 11/20/17 21:42 11/20/17 21:48 Ativan 2 Mg/1 Ml Vial IV 11/20/17 21:43 1 mg STAT ONE Administration Lorazepam Confirm 11/20/17 21:45 Ativan 2 Mg/1 Ml Vial Administered 11/20/17 21:46 Dose 2 mg .ROUTE .STK-MED ONE Lorazepam 1 mg 11/21/17 00:12 11/21/17 00:26 Ativan 2 Mg/1 Ml Vial IV 11/21/17 00:13 1 mg STAT ONE Administration Lorazepam Confirm 11/21/17 00:23 Ativan 2 Mg/1 Ml Vial Administered 11/21/17 00:24 Dose 2 mg .ROUTE .STK-MED ONE Morphine Sulfate 4 mg 11/21/17 00:39 11/21/17 00:48 Morphine Sulfate 4 Mg Inj IV 11/21/17 00:40 4 mg STAT ONE Administration Morphine Sulfate Confirm 11/21/17 00:45 Morphine Sulfate 4 Mg Inj Administered 11/21/17 00:46 Dose 4 mg .ROUTE .STK-MED ONE Ondansetron HCl 4 mg 11/20/17 20:04 11/20/17 20:45 Zofran 4 Mg/2 Ml Vial IV 11/20/17 20:05 4 mg STAT ONE Administration Ondansetron HCl Confirm 11/20/17 20:07 Zofran 4 Mg/2 Ml Vial Administered 11/20/17 20:08 Dose 4 mg .ROUTE .STK-MED ONE Thiamine HCl 100 mg 11/20/17 20:04 11/20/17 20:45 Thiamine 200 Mg/2 Ml IV 11/20/17 20:05 100 mg STAT ONE Administration Thiamine HCl Confirm 11/20/17 20:07 Thiamine 200 Mg/2 Ml Administered 11/20/17 20:08 Dose 200 mg .ROUTE .STK-MED ONE Lab/Rad Data: Laboratory Result Diagrams 11/20/17 21:05 11/20/17 21:05 Laboratory Results 11/21/17 11/21/17 11/20/17 Range/Units 00:34 00:05 21:07 WBC (4.0-10.5) K/mm3 RBC (4.1-5.6) M/mm3 Hgb (12.5-18.0) gm/dl Hct (42-50) % MCV (78-100) fl MCH (26-32) pg MCHC (32-36) g/dl RDW (11.5-14.0) % Plt Count (150-450) K/mm3 MPV (6-9.5) fl Absolute Granulocytes (1.4-6.9) Segmented Neutrophils (36.-66.) % Band Neutrophils (0.0-2.0) % Lymphocytes (Manual) (24-44) % Monocytes (Manual) (0.0-12.0) % Platelet Estimate (NORMAL) RBC Morphology Sodium (137-145) mmol/L Potassium (3.5-5.1) mmol/L Chloride (98-107) mmol/L Carbon Dioxide (22-30) mmol/L Anion Gap (5-15) MEQ/L BUN (9-20) mg/dL Creatinine (0.66-1.25) mg/dL Estimated GFR ML/MIN Glucose (74-106) mg/dL Lactic Acid 14.0 H 19.1 H (0.4-2.0) Calcium (8.4-10.2) mg/dL Total Bilirubin (0.2-1.3) mg/dL AST (17-59) U/L ALT (0-50) U/L Alkaline Phosphatase (38-126) U/L Troponin I (0.000-0.034) ng/mL Serum Total Protein (6.3-8.2) g/dL Albumin (3.5-5.0) g/dL Amylase (30-110) U/L Lipase (23-300) U/L Ur Collection Type Urine Color (YELLOW) Urine Appearance (CLEAR) Urine pH (5-6) Ur Specific [place] (1.005-1.025) Urine Protein (Negative) Urine Ketones (NEGATIVE) Urine Blood (0-5) Ilan/ul Urine Nitrite (NEGATIVE) Urine Bilirubin (NEGATIVE) Urine Urobilinogen (0-1) mg/dL Ur Leukocyte Esterase (NEGATIVE) Urine Microscopic RBC (0-2) /HPF Urine Microscopic WBC (0-5) /HPF Ur Epithelial Cells (FEW) /HPF Amorphous Crystals (NEGATIVE) /HPF Urine Bacteria (NEGATIVE) /HPF Hyaline Casts (0-2) /LPF Urine Mucus (NEGATIVE) /HPF Urine Culture Reflexed (NO) Urine Glucose (NEGATIVE) mg/dL Salicylates (2-20) mg/dL Urine Opiates Level NEGATIVE (NEGATIVE) Ur Methadone NEGATIVE (NEGATIVE) Acetaminophen (10-30) ug/ml Urine Barbiturates NEGATIVE (NEGATIVE) Ur Phencyclidine (PCP) NEGATIVE (NEGATIVE) Urine Amphetamine NEGATIVE (NEGATIVE) U Benzodiazepine Level NEGATIVE (NEGATIVE) Urine Cocaine NEGATIVE (NEGATIVE) Urine Marijuana (THC) NEGATIVE (NEGATIVE) Ethyl Alcohol (0-10) mg/dL Specimen Received 11/20/17 11/20/17 11/20/17 Range/Units 21:05 21:05 21:05 WBC (4.0-10.5) K/mm3 RBC (4.1-5.6) M/mm3 Hgb (12.5-18.0) gm/dl Hct (42-50) % MCV (78-100) fl MCH (26-32) pg MCHC (32-36) g/dl RDW (11.5-14.0) % Plt Count (150-450) K/mm3 MPV (6-9.5) fl Absolute Granulocytes (1.4-6.9) Segmented Neutrophils (36.-66.) % Band Neutrophils (0.0-2.0) % Lymphocytes (Manual) (24-44) % Monocytes (Manual) (0.0-12.0) % Platelet Estimate (NORMAL) RBC Morphology Sodium 135 L (137-145) mmol/L Potassium 2.6 L* (3.5-5.1) mmol/L Chloride 77 L (98-107) mmol/L Carbon Dioxide 28 (22-30) mmol/L Anion Gap 32.4 H (5-15) MEQ/L BUN 8 L (9-20) mg/dL Creatinine 0.74 (0.66-1.25) mg/dL Estimated GFR > 60.0 ML/MIN Glucose 156 H (74-106) mg/dL Lactic Acid (0.4-2.0) Calcium 7.6 L (8.4-10.2) mg/dL Total Bilirubin 4.00 H (0.2-1.3) mg/dL AST 109 H (17-59) U/L ALT 40 (0-50) U/L Alkaline Phosphatase 188 H (38-126) U/L Troponin I < 0.012 (0.000-0.034) ng/mL Serum Total Protein 6.5 (6.3-8.2) g/dL Albumin 3.2 L (3.5-5.0) g/dL Amylase 54 (30-110) U/L Lipase 31 (23-300) U/L Ur Collection Type Urine Color (YELLOW) Urine Appearance (CLEAR) Urine pH (5-6) Ur Specific [place] (1.005-1.025) Urine Protein (Negative) Urine Ketones (NEGATIVE) Urine Blood (0-5) Ilan/ul Urine Nitrite (NEGATIVE) Urine Bilirubin (NEGATIVE) Urine Urobilinogen (0-1) mg/dL Ur Leukocyte Esterase (NEGATIVE) Urine Microscopic RBC (0-2) /HPF Urine Microscopic WBC (0-5) /HPF Ur Epithelial Cells (FEW) /HPF Amorphous Crystals (NEGATIVE) /HPF Urine Bacteria (NEGATIVE) /HPF Hyaline Casts (0-2) /LPF Urine Mucus (NEGATIVE) /HPF Urine Culture Reflexed (NO) Urine Glucose (NEGATIVE) mg/dL Salicylates < 1.0 L (2-20) mg/dL Urine Opiates Level (NEGATIVE) Ur Methadone (NEGATIVE) Acetaminophen < 10 L (10-30) ug/ml Urine Barbiturates (NEGATIVE) Ur Phencyclidine (PCP) (NEGATIVE) Urine Amphetamine (NEGATIVE) U Benzodiazepine Level (NEGATIVE) Urine Cocaine (NEGATIVE) Urine Marijuana (THC) (NEGATIVE) Ethyl Alcohol < 10 (0-10) mg/dL Specimen Received 11/20/17 11/20/17 Range/Units 21:05 00:05 WBC 8.2 (4.0-10.5) K/mm3 RBC 3.36 L (4.1-5.6) M/mm3 Hgb 11.1 L (12.5-18.0) gm/dl Hct 32.2 L (42-50) % MCV 95.8 (78-100) fl MCH 33.0 H (26-32) pg MCHC 34.5 (32-36) g/dl RDW 14.4 H (11.5-14.0) % Plt Count 110 L (150-450) K/mm3 MPV 10.5 H (6-9.5) fl Absolute Granulocytes 7.35 H (1.4-6.9) Segmented Neutrophils 90 H (36.-66.) % Band Neutrophils 5 H (0.0-2.0) % Lymphocytes (Manual) 4 L (24-44) % Monocytes (Manual) 1 (0.0-12.0) % Platelet Estimate NORMAL (NORMAL) RBC Morphology NORMAL Sodium (137-145) mmol/L Potassium (3.5-5.1) mmol/L Chloride (98-107) mmol/L Carbon Dioxide (22-30) mmol/L Anion Gap (5-15) MEQ/L BUN (9-20) mg/dL Creatinine (0.66-1.25) mg/dL Estimated GFR ML/MIN Glucose (74-106) mg/dL Lactic Acid (0.4-2.0) Calcium (8.4-10.2) mg/dL Total Bilirubin (0.2-1.3) mg/dL AST (17-59) U/L ALT (0-50) U/L Alkaline Phosphatase (38-126) U/L Troponin I (0.000-0.034) ng/mL Serum Total Protein (6.3-8.2) g/dL Albumin (3.5-5.0) g/dL Amylase (30-110) U/L Lipase (23-300) U/L Ur Collection Type VOID Urine Color ZAHRA (YELLOW) Urine Appearance HAZY (CLEAR) Urine pH 6.0 (5-6) Ur Specific [place] 1.015 (1.005-1.025) Urine Protein TRACE (Negative) Urine Ketones MODERATE (NEGATIVE) Urine Blood TRACE NON-HEM (0-5) Ilan/ul Urine Nitrite NEGATIVE (NEGATIVE) Urine Bilirubin MODERATE (NEGATIVE) Urine Urobilinogen 12 (0-1) mg/dL Ur Leukocyte Esterase NEGATIVE (NEGATIVE) Urine Microscopic RBC 5-10 (0-2) /HPF Urine Microscopic WBC 2-5 (0-5) /HPF Ur Epithelial Cells FEW (FEW) /HPF Amorphous Crystals MODERATE (NEGATIVE) /HPF Urine Bacteria MODERATE (NEGATIVE) /HPF Hyaline Casts 2-5 (0-2) /LPF Urine Mucus MODERATE (NEGATIVE) /HPF Urine Culture Reflexed YES (NO) Urine Glucose NEGATIVE (NEGATIVE) mg/dL Salicylates (2-20) mg/dL Urine Opiates Level (NEGATIVE) Ur Methadone (NEGATIVE) Acetaminophen (10-30) ug/ml Urine Barbiturates (NEGATIVE) Ur Phencyclidine (PCP) (NEGATIVE) Urine Amphetamine (NEGATIVE) U Benzodiazepine Level (NEGATIVE) Urine Cocaine (NEGATIVE) Urine Marijuana (THC) (NEGATIVE) Ethyl Alcohol (0-10) mg/dL Specimen Received 9/11/18 2350 - Progress Progress: improved Progress Note: 11/20/17 21:24 51-year-old white male with history of chronic alcoholism, pancreatitis. Arrives with complaint of persistent vomiting epigastric pain symptoms since yesterday patient is noted be tachycardic. Patient's lactate is noted to be 19.1. Urinalysis with cultures, blood cultures have been ordered. IV Zosyn has been ordered after cultures have been obtained. IV normal saline total of 3 L IV have been ordered. Patient does have a history of alcoholism he states he drinks a 12 pack a day. Thiamine 100 mg IV has been ordered. 11/21/17 00:40 Patient arrives with the moderate amount of abdominal pain he states he's been nausea vomiting is somewhat pale on appearance he has epigastric pain. He does have a history of drinking a 12 pack of beer every day for the past 4 months he states he has had none since this morning he denies illicit drug use. Patient arrives with temperature 97.6 pulse 125 respiration 26 blood pressure 118/89 he has 100% pulse oximetry on arrival. Patient has an EKG which is remarkable for sinus tachycardia 1 15 bpm normal axis nonspecific ST and T wave changes most likely rate dependent Patient has been given 3 L of normal saline, blood cultures times one were obtained (labs were unable to obtain second set) patient was given Zosyn 3.75 mg IV, Patient has been given Ativan 1 mg IV 2 he is much improved after receiving Ativan each time. He does still have some epigastric pain and will give patient morphine 4 mg IV he is also received Zofran 4 mg IV. 40 mEq K rider has also been ordered on this patient Patient's labs remarkable for white count 8.2 hemoglobin 11.1 hematocrit 32.2 platelets 110 Patient's chemistry show a sodium of 135 potassium 2.6 chloride 77 bicarbonate 28 BUN 8 creatinine 0.74 glucose 156 Lactate is noted above is 19.1 Total bilirubin is elevated at 4.0 AST is 109 ALT 40 alkaline phosphatase 188 troponin is less than 0.012 Amylase is a 54 lipase is [address] of the abdomen and pelvis which shows hepatomegaly and hepatic steatosis, there is a sequela of chronic pancreatitis, there is subtle adjacent stranding. The prostate gland is enlarged. I have discussed the patient's case prior to the return of the patient's CT with Dr. bridges who is aeronautical drafter for Dr. Guteirres. She feels that the patient should be transferred to [facility] where if necessary an ERCP can be performed on the patient. Will continue IV fluids on this patient. Will contact [facility]. 11/21/17 01:[address] Hughes at [facility] I've discussed the patient's case with Dr. Hughes. He has accepted the patient for transfer. Will transfer patient to [facility]. Diagnosis 1. pancreatitis 2.. Persistent nausea and vomiting 3 dehydration 4. Hypokalemia. - Departure Time of Disposition: 01:03 Departure Disposition: Transfer ([facility]) Clinical Impression: Dehydration, Hypokalemia Pancreatitis Qualifiers: Chronicity: acute Pancreatitis type: alcohol induced Acute pancreatitis complication: unspecified Qualified Code(s): K85.20 - Alcohol induced acute pancreatitis without necrosis or infection Nausea and vomiting Qualifiers: Vomiting type: unspecified Vomiting Intractability: unspecified Qualified Code( s): R11.2 - Nausea with vomiting, unspecified Condition: Fair Critical Care Time: No Referrals: AMBREEN PADILLA [Primary Care Provider] -
[2017-11-20 21:12] LABS: Granulocyte Absolute (ANC) 7.35 (1.4-6.9); Hematocrit 32.2 % (42-50); Hemoglobin 11.1 gm/dl (12.5-18.0); Mean Cell Volume 95.8 fl (78-100); Mean Corpuscular Hgb Concent. 34.5 g/dl (32-36); Mean Platelet Volume 10.5 fl (6-9.5); Platelet Count 110 K/mm3 (150-450); Red Blood Count 3.36 M/mm3 (4.1-5.6); Red Cell Distribution Width 14.4 % (11.5-14.0); White Blood Count 8.2 K/mm3 (4.0-10.5)
[2017-11-20 21:15] LABS: Lactic Acid 19.1 (0.4-2.0)
[2017-11-20] MEDS ORDERED: Zosyn 3.375GM/100 Ml D5W 3.375 GM/100 ML IVPB IV STA (21:17)
[2017-11-20 21:37] LABS: ALBUMIN 3.2 g/dL (3.5-5.0); ALKALINE PHOSPHATASE 188 U/L (38-126); AMYLASE 54 U/L (30-110); ANION GAP 32.4 MEQ/L (5-15); BLOOD UREA NITROGEN 8 mg/dL (9-20); CHLORIDE 77 mmol/L (98-107); Calcium 7.6 mg/dL (8.4-10.2); Carbon Dioxide 28 mmol/L (22-30); Creatinine 1 0.74 mg/dL (0.66-1.25); Glucose 156 mg/dL (74-106); LIPASE 31 U/L (23-300); SODIUM 135 mmol/L (137-145); Total Protein 6.5 g/dL (6.3-8.2)
[2017-11-20 21:40] LABS: ACETAMINOPHEN < 10 ug/ml (10-30); ETHYL ALCOHOL < 10 mg/dL (0-10); SALICYLATE < 1.0 mg/dL (2-20)
[2017-11-20] MEDS ORDERED: Ativan 2 MG/1 ML VIAL IV ONE (21:42)
[2017-11-20 21:43] LABS: SGOT/AST 109 U/L (17-59)
[2017-11-20] MEDS ORDERED: Ativan 2 MG/1 ML VIAL ONE (21:45)
[2017-11-20 22:02] LABS: Potassium 2.6 mmol/L (3.5-5.1); SGPT/ALT 40 U/L (0-50)
[2017-11-20 22:03] LABS: BAND 5 % (0.0-2.0); Lymphocytes 4 % (24-44); Monocyte 1 % (0.0-12.0); Neutrophils 90 % (36.-66.); Platelet Estimate NORMAL (NORMAL); Total Cells Counted 100
[2017-11-20] MEDS ORDERED: POTASSIUM CHLORIDE 20 mEq IN WATER 100ML 100 ML IV ONE (22:06)
[2017-11-20] MEDS ORDERED: Zosyn 3.375GM/100 Ml D5W 3.375 GM/100 ML IVPB IV ONE (22:06)
[2017-11-20] MEDS ORDERED: Sodium Chloride 0.9% 1000 ML 1,000 ML ONE (22:13)
[2017-11-20] MEDS: POTASSIUM CHLORIDE 20 mEq IN WATER 100ML 100 ML IV SCH (22:36)
[2017-11-21 00:06] LABS: Appearance HAZY (CLEAR); Bilirubin MODERATE (NEGATIVE); Blood TRACE NON-HEM Ery/ul (0-5); Glucose NEGATIVE (NEGATIVE); Ketones MODERATE (NEGATIVE); Leukocyte Esterase NEGATIVE (NEGATIVE); Nitrite NEGATIVE (NEGATIVE); Protein,Urine Dip TRACE (Negative); Specific Gravity 1.015 (1.005-1.025); Urobilinogen 12 mg/dL (0-1)
[2017-11-21 00:07] LABS: Amourphous Crystal MODERATE /HPF (NEGATIVE); Bacteria MODERATE /HPF (NEGATIVE); Epithelial Cells FEW /HPF (FEW); Mucus MODERATE /HPF (NEGATIVE)
[2017-11-21 00:12] LABS: Amphetamine,Urine NEGATIVE (NEGATIVE); Barbiturate,Urine NEGATIVE (NEGATIVE); Benzodiazepine,Urine NEGATIVE (NEGATIVE); Cocaine,Urine NEGATIVE (NEGATIVE); Methadone,Urine NEGATIVE (NEGATIVE); Opiate,Urine NEGATIVE (NEGATIVE); PCP,Urine NEGATIVE (NEGATIVE); THC,Urine NEGATIVE (NEGATIVE)
[2017-11-21] MEDS ORDERED: Ativan 2 MG/1 ML VIAL IV ONE (00:12)
[2017-11-21] MEDS ORDERED: Sodium Chloride 0.9% 1000 ML 1,000 ML IV SCH (00:15)
[2017-11-21] MEDS ORDERED: Sodium Chloride 0.9% 1000 ML 1,000 ML ONE (00:23)
[2017-11-21] MEDS ORDERED: Ativan 2 MG/1 ML VIAL ONE (00:23)
[2017-11-21] MEDS ORDERED: POTASSIUM CHLORIDE 20 mEq IN WATER 100ML 100 ML IV ONE (00:24)
[2017-11-21] MEDS ORDERED: MORPHINE SULFATE 4 MG INJ IV ONE (00:39)
[2017-11-21] MEDS ORDERED: MORPHINE SULFATE 4 MG INJ ONE (00:45)
[2017-11-21 00:50] VITALS: BP 123/83; PULSE 103
[2017-11-21 01:06] VITALS: O2SAT 100
[2017-11-21] MEDS: POTASSIUM CHLORIDE 20 mEq IN WATER 100ML 100 ML IV SCH (01:15)
--- NOTE | 2017-11-21 08:53 | XRAY ---
Indication: Upper abdominal pain, nausea, and vomiting. History of pancreatitis. Multiple contiguous axial images obtained through the abdomen and pelvis without contrast as ordered. Comparison: March 22, 2017. Lung bases demonstrates minimal bibasilar dependent atelectasis. No infiltrate or effusion. Heart is not enlarged. Again small hiatal hernia. Noncontrasted stomach and bowel loops appear nonobstructed. Normal appendix. No free fluid/air. Again scattered calcified splenic granulomas and chronic pancreatitis calcifications. Stable diffuse fatty hepatomegaly and enlarged prostate gland. Remaining gallbladder, adrenal glands, kidneys, ureters, and bladder appear unremarkable for noncontrast exam. Stable minimal aortoiliac calcifications without AAA and small nonpathologic periaortic nodes. No pathologic retroperitoneal lymphadenopathy. Osseous structures intact again with lower lumbar degenerative changes. Stable chronic ovoid fluid attenuation in the right inguinal canal. Impression: 1. Stable small hiatal hernia, fatty hepatomegaly, chronic pancreatitis calcifications, calcified splenic granulomas, enlarged prostate gland, and right inguinal canal fluid collection. 2. No new or acute intra-abdominal/pelvic abnormalities on this noncontrast exam. Comment: Preliminary interpretation was made by [facility]. No critical discrepancy. CT DI 21.78
== END 2017-11-21 01:45 | disposition short-term general hospital (02) ==
LOC: ED 19:38
DX: K85.90 Acute pancreatitis without necrosis or infection, unspecified (principal); E86.0 Dehydration; E87.6 Hypokalemia; R00.0 Tachycardia, unspecified; R11.2 Nausea with vomiting, unspecified; R16.0 Hepatomegaly, not elsewhere classified; Z79.899 Other long term (current) drug therapy
CPT/HCPCS: 36000; 36415; 74176; 80053; 80307; 81000; 82150; 82962; 83605; 83690; 84484; 85025; 87040; 87086; 93005; 96360; 96361; 96365; 96374; 96375; 99285; G0481; 81001; 96376; J2060; J2270; J2405; J2543; J3480; G0480